=== PATIENT | male | born 1990 ===

== ENCOUNTER 2020-08-22 11:06 | Outpatient (REF) | payer OTHER, SELFPAY | END 2020-08-22 11:07 | disposition home or self-care (01) | LOC: HO.LAB 11:06 | PROVIDERS: Visit Provider Internal Medicine | DX: Z20.828 Contact with and (suspected) exposure to other viral communicable diseases (principal) | CPT/HCPCS: C9803; U0003 ==

== ENCOUNTER 2020-09-20 10:24 | Outpatient (REF) | payer OTHER, SELFPAY | END 2020-09-20 10:25 | disposition home or self-care (01) | LOC: HO.LAB 10:24 | PROVIDERS: Visit Provider Internal Medicine | DX: Z20.822 Contact with and (suspected) exposure to COVID-19 (principal) | CPT/HCPCS: 36415; C9803; U0003 ==

== ENCOUNTER 2021-01-23 15:01 | Emergency (ER) | payer OTHER, SELFPAY ==
--- NOTE | ~2021-01-23 | XR_ITS ---
EXAMINATION: XR KNEE, RIGHT CLINICAL INFORMATION: Pain and swelling. COMPARISON: None TECHNIQUE: Four views of the right knee. FINDINGS: There is minimal suprapatellar joint effusion. The joint spaces are maintained normal. There is no visible acute fracture, dislocation or bony erosive changes. The soft tissues are unremarkable. XR/XR knee RT 4V IMPRESSION: Nonspecific minimal suprapatellar joint effusion. Otherwise unremarkable right knee exam.
[2021-01-23 15:05] VITALS: BP 127/70; PULSE 98; RESP 20; TEMP 36.8; O2SAT 95; BMI 27.4
--- NOTE | 2021-01-23 15:58 | ED_ITS ---
HPI - Extremity Problem General Chief complaint: Extremity Problem <ALBERTO Colin Last Filed: 01/23/21 16:32> Stated complaint: knee pain <ALBERTO Colin Last Filed: 01/23/21 16:32> Time Seen by Provider: 01/23/21 15:58 <ALBERTO Colin Last Filed: 01/23/21 16:32> Source: patient <ALBERTO Colin Last Filed: 01/23/21 16:32> Mode of arrival: ambulatory <ALBERTO Colin Last Filed: 01/23/21 16:32> History of Present Illness HPI Narrative: 30-year-old male with a past medical history of chronic right knee pain s/p injury multiple years ago in [place] presenting to the ED complaining of acute on chronic right knee pain S/P twisting injury yesterday. Denies direct trauma/injury, falls, numbness, tingling, weakness, fever <ALBERTO Colin Last Filed: 01/23/21 16:32> MD Complaint: extremity pain <ALBERTO Colin Last Filed: 01/23/21 16:32> Related Data Home medications: Previous Rx's Medication Instructions Recorded acetaminophen 500 mg PO Q6H PRN #20 cap 01/23/21 acetaminophen [Tylenol Extra 500 mg PO Q6H PRN #20 tab 01/23/21 Strength] naproxen 500 mg PO BID PRN 10 Days #20 tab 01/23/21 naproxen 500 mg PO BID PRN 10 Days #20 tab 01/23/21 <ALBERTO Colin Last Filed: 01/23/21 16:32> Allergies/Adverse reactions: Allergies Allergy/AdvReac Type Severity Reaction Status Date / Time No Known Allergies Allergy Unverified 05/24/20 19:16 [No Known Allergies*] <ALBERTO Colin Last Filed: 01/23/21 16:32> Review of Systems Review of Systems: Constitutional: No Fever, No Chills Cardiovascular: No Chest Pain, No SOB Respiratory: No Cough Musculoskeletal: + joint pain, No Myalgias, + Joint Swelling Skin: No Skin Lesions, No rash Neuro: No Weakness, No Numbness, No Paresthesias <ALBERTO Colin Last Filed: 01/23/21 16:32> Yes all other systems are reviewed and are negative <ALBERTO Colin - Last Filed: 01/23/21 16:32> [facility] Past Medical History Attestation statement: The following information was validated with the patient. <ALBERTO Colin - Last Filed: 01/23/21 16:32> Social History Social History: Social History Advance Directives: No Advance Directives Information Provided: Yes <ALBERTO Colin - Last Filed: 01/23/21 16:32> Physical Exam Vital Signs: Vital Signs: Last Vital Signs Temp 98.3 F 01/23/21 15:05 Pulse 98 01/23/21 15:05 Resp 01/23/21 15:05 BP 127/70 01/23/21 15:05 Pulse Ox 95 01/23/21 15:05 Body Mass Index 27.4 <ALBERTO Colin - Last Filed: 01/23/21 16:32> Vital Signs: Last Vital Signs Temp 98.3 F 01/23/21 15:05 Pulse 98 01/23/21 15:05 Resp 20 01/23/21 15:05 BP 127/70 01/23/21 15:05 Pulse Ox 95 01/23/21 15:05 Body Mass Index 27.4 <AMAYA Bradford - Last Filed: 01/23/21 19:08> Const: General: cooperative, healthy appearing and no acute distress <ALBERTO Colin - Last Filed: 01/23/21 16:32> Orientation/consciousness: patient oriented x3 <ALBERTO Colin - Last Filed: 01/23/21 16:32> Limitations: no limitations <ALBERTO Colin - Last Filed: 01/23/21 16:32> HENMT: Head: Yes normal to inspection <ALBERTO Colin - Last Filed: 01/23/21 16:32> Ears: hearing grossly normal bilaterally <ALBERTO Colin - Last Filed: 01/23/21 16:32> General nose exam: Normal external nose present <ALBERTO Colin - Last Filed: 01/23/21 16:32> Face and sinus: Yes normal facial exam <ALBERTO Colin - Last Filed: 01/23/21 16:32> Eyes: General: appearance normal, both eyes and all related structures <ALBERTO Colin Last Filed: 01/23/21 16:32> EOM: EOMs intact bilaterally <ALBERTO Colin - Last Filed: 01/23/21 16:32> Neck: Neck: Yes normal visual inspection and Yes no meningeal signs <ALEBRTO Colin - Last Filed: 01/23/21 16:32> Resp: Effort & Inspection: normal respiratory effort <ALBERTO Colin - Last Filed: 01/23/21 16:32> Cardio: Rate: regular rate <ALBERTO Colin - Last Filed: 01/23/21 16:32> Peripheral pulses: dorsalis pedis present <ALBERTO Colin Last Filed: 01/23/21 16:32> Skin: Rashes: no rashes <ALBERTO Colin - Last Filed: 01/23/21 16:32> Wounds: no wounds <ALBERTO Colin Last Filed: 01/23/21 16:32> Neuro: General: patient oriented x3, tone normal and no meningeal signs <ALBERTO Colin Last Filed: 01/23/21 16:32> Extrem: Other: Right knee with notable swelling > medial aspect. + tender to palpation. Limited active flexion and extension secondary to pain. Neurovascularly intact distally. No overlying cellulitis/fluctuance or induration <ALBERTO Colin Last Filed: 01/23/21 16:32> Course Course Course Narrative: XR knee RT 4V IMPRESSION: Nonspecific minimal suprapatellar joint effusion. Otherwise unremarkable right knee exam >> patient placed in Tevin wrap. Results discussed with blood bank calendar control clerk. Is to follow up with Orthopedics for likely needed MRI/cortisone injections <ALBERTO Colin Last Filed: 01/23/21 16:32> Reevaluation(s) Reevaluation #1: Patient's prescriptions were not sent to his pharmacy, the pharmacy was not selected. I recent prescriptions for acetaminophen and naproxen to [facility] on [address] [address] [facility] [address] in [place]. <Yamilex Longoria PA-C - Last Filed: 01/23/21 19:08> Time: 19:08 <Yamilex Longoria PA-C - Last Filed: 01/23/21 19:08> MDM - Extremity (Nontraumatic) MDM Narrative Medical decision making narrative: 30-year-old male with a past medical history of chronic right knee pain s/p injury multiple years ago in [place] presenting to the ED complaining of acute on chronic right knee pain S/P twisting injury yesterday. On exam vital signs stable, NAD/well-appearing, physical exam as above. Concern for ligamental/tendon or meniscal injury. Low concern for fracture/dislocation Plan: X-rays <ALBERTO Colin - Last Filed: 01/23/21 16:32> Discharge Plan Discharge Clinical Impression: Joint effusion of knee Qualifiers: Laterality: right Qualified Code(s): M25.461 - Effusion, right knee <ALBERTO Colin - Last Filed: 01/23/21 16:32> Patient Disposition: Home, Self-Care <ALBERTO Colin - Last Filed: 01/23/21 16:32> Instructions: Swollen Knee Joint (ED) <ALBERTO Colin - Last Filed: 01/23/21 16:32> Additional Instructions: Your x-ray showed a small joint effusion. It is likely you have a ligamental/tendon or meniscal injury. You need an MRI to further evaluate this, follow-up with Orthopedics, they can also do cortisone injections as indicated in their office. Ice, elevate, rest, naproxen as an anti-inflammatory/pain medication, take with food. Tylenol in addition home with pain. If pain persists or worsens, becomes unbearable, have weakness, persistent falls please return to the ED Coe radiograf?a mostr? un sarmad?o derrame articular. Es probable que tenga ladi lesi?n de ligamentos, tendones o meniscos. Necesita ladi resonancia magn?purnima para evaluar m?s a fondo esto, seguimiento con ortopedia, tambi?n pueden hacer inyecciones de cortisona rain se indica en coe oficina. Hielo, eleve, descanse, naproxeno rain antiinflamatorio / analg?sico, t?sanchez con alimentos. Tylenol adem?s en casa con dolor. Si el dolor persiste o empeora, se vuelve insoportable, tiene debilidad, ca?hwang persistentes, vuelva al servicio de urgencias. <ALBERTO Colin - Last Filed: 01/23/21 16:32> Prescriptions: New acetaminophen [Tylenol Extra Strength] 500 mg tablet 500 mg PO Q6H PRN (Reason: pain or fever) Qty: 20 RF: 0 naproxen 500 mg tablet 500 mg PO BID PRN (Reason: pain) 10 Days Qty: 20 RF: 0 naproxen 500 mg tablet 500 mg PO BID PRN (Reason: pain) 10 Days Qty: 20 RF: 0 acetaminophen 500 mg capsule 500 mg PO Q6H PRN (Reason: pain) Qty: 20 RF: 0 <ALBERTO Colin - Last Filed: 01/23/21 16:32> Referrals: Stephy Sexton PA-C [Physician [employer]] - 5 days <ALBERTO Colin - Last Filed: 01/23/21 16:32> Stand Alone Forms: Work/School Release <ALBERTO Colin - Last Filed: 01/23/21 16:32> Interventions: ED Discharge Assessment Last Done: 01/23/21 16:41 <ALBERTO Colin - Last Filed: 01/23/21 16:32> Discharge Date/Time: 01/23/21 16:42 <ALBERTO Colin - Last Filed: 01/23/21 16:32> Print Language: Belarusian <ALBERTO Colin - Last Filed: 01/23/21 16:32>
== END 2021-01-23 16:42 | disposition home or self-care (01) ==
PROVIDERS: Emergency Provider Emergency Medicine
DX: M25.461 Effusion, right knee (principal); M25.561 Pain in right knee; Z79.899 Other long term (current) drug therapy
CPT/HCPCS: 73564; 99283

== ENCOUNTER 2021-02-03 15:13 | Emergency (ER) | payer OTHER, SELFPAY ==
[2021-02-03 15:15] VITALS: BP 142/84; PULSE 104; RESP 18; TEMP 37.3; O2SAT 97; BMI 26.6
[2021-02-03 15:41] LABS: Eosinophils Absolute Auto 0.1 X10*3/uL (0.0-0.4); Eosinophils Percent Auto 1.2 % (0-4); Imm Gran Abs Auto 0.01 X10*3/uL (0.00-0.03); Imm Gran Pct Auto 0.2 % (0.0-0.4); MANUAL DIFF FLAG SCAN; Monocytes Percent Auto 9.5 % (2-11); PLT CLUMP 1; Red Cell Distribution Width 12.9 % (11.0-16.0); SCAN SMEAR FLAG 1
[2021-02-03 15:43] LABS: Basophils Percent Auto 0.4 % (0-2); Hematocrit 44.1 % (42-52); Hemoglobin 14.4 g/dl (14.0-18.0); Lymphocytes Absolute Auto 0.6 X10*3/uL (1.2-4.9); Lymphocytes Percent Auto 10.7 % (20-40); Mean Corpuscular HGB Conc 32.7 g/dl (31.0-36.0); Mean Corpuscular Hemoglobin 28.2 pg (27.0-33.0); Mean Corpuscular Volume 86.5 fL (80-98); Mean Platelet Volume 11.9 fL (9.4-12.4); Monocytes Absolute Auto 0.5 X10*3/uL (0.1-1.2); Neutrophils Absolute Auto 4.4 X10*3/uL (2.0-8.3); Platelet Count 131 X10*3/uL (160-400); White Blood Count 5.7 X10*3/uL (4.8-10.8)
[2021-02-03 16:02] LABS: SLIDE REVIEW VERIFIED
[2021-02-03 16:10] LABS: Anion Gap 11 (12-20); Blood Urea Nitrogen 17 mg/dL (9-16); Calcium 8.8 mg/dL (8.4-10.2); Carbon Dioxide 25 mmol/L (22-29); Chloride 107 mmol/L (96-108); Creatinine Clr Calc Pharmacy 134.6; Estimated Glomerular Filt Rate > 60; Glucose Random 95 mg/dL (60-115); Lipase 18 U/L (8-78); Sodium 139 mmol/L (135-145)
--- NOTE | 2021-02-03 16:22 | ECG_ITS ---
Test Reason : ABDOMINAL PAIN Blood Pressure : / mmHG Vent. Rate : 091 BPM Atrial Rate : 091 BPM P-R Int : 128 ms QRS Dur : 080 ms QT Int : 342 ms P-R-T Axes : 043 018 -09 degrees QTc Int : 420 ms Normal sinus rhythm Nonspecific ST and T wave abnormality Abnormal ECG When compared with ECG of 14-JAN-2017 22:03, Nonspecific ST and T wave abnormality more prominent Referred By: Ronna Mcmanus Electronically Signed By:MARCO CASTREJON
[2021-02-03 16:39] LABS: Alanine Aminotransferase 30 U/L (0-40); Albumin Level 4.2 g/dL (3.5-5.0); Alkaline Phosphatase 58 U/L (39-117); Aspartate Amino Transferase 13 U/L (5-37); Bilirubin Direct 0.2 mg/dL (0.0-0.5); Bilirubin Total 0.4 mg/dL (0.0-1.0); Total Protein 6.8 g/dL (6.5-8.0)
[2021-02-03 16:56] VITALS: BP 121/79; PULSE 92; RESP 18; TEMP 36.7; O2SAT 97
[2021-02-03 17:03] LABS: Troponin-I High Sensitivity < 3.5 ng/L (<3.5-35.0)
--- NOTE | 2021-02-03 17:29 | ED_ITS ---
HPI - General Adult General Chief complaint: Abdominal Pain Stated complaint: chest pain Time Seen by Provider: 02/03/21 16:06 Source: patient Mode of arrival: ambulatory History of Present Illness HPI narrative: 30 year old male with no significant past medical history presenting to the ED complaining of intermittent chest pain x1 month, headache, myalgias, fever, chills, s/p 1st dose of Pfziser COVID-19 vaccine yesterday. Denies abdominal pain, nausea/vomiting, LE edema, recent travel, sick contacts, SOB, cough Related Data Previous Rx's Medication Instructions Recorded acetaminophen 500 mg PO Q6H PRN #20 cap 01/23/21 acetaminophen [Tylenol Extra 500 mg PO Q6H PRN #20 tab 01/23/21 Strength] naproxen 500 mg PO BID PRN 10 Days #20 tab 01/23/21 naproxen 500 mg PO BID PRN 10 Days #20 tab 01/23/21 Allergies Allergy/AdvReac Type Severity Reaction Status Date / Time No Known Allergies Allergy Verified 02/03/21 15:20 [No Known Allergies*] Review of Systems Review of Systems: Constitutional: + Fever, + Chills, No Night Sweats, No Fatigue, No Malaise ENT/Mouth: No Hearing loss, No Ear Pain, No Nasal Congestion, No Sinus Pain, No sore throat, No Rhinorrhea Eyes: No Eye Pain, No Swelling, No Vision Changes Cardiovascular: + Chest Pain, No SOB, No Edema, No Palpitations Respiratory: + Cough, No Sputum, No Dyspnea Gastrointestinal: No Nausea, No Vomiting, No Diarrhea, No Constipation, No Abdominal pain Musculoskeletal: No joint pain, + Myalgias, No Joint Swelling Skin: No Skin Lesions, No rash Neuro: No Weakness, No Numbness, No Dizziness, + Headache Yes all other systems are reviewed and are negative [facility] Past Medical History Attestation statement: The following information was validated with the patient. Medical History (Updated 02/03/21 @ 17:39 by ALBERTO Colin) No known health problems Social History Social History Advance Directives: No Advance Directives Information Provided: Yes Physical Exam Vital Signs: Vital Signs: Last Vital Signs Temp 98.1 F 02/03/21 16:56 Pulse 92 02/03/21 16:56 Resp 18 02/03/21 16:56 BP 121/79 02/03/21 16:56 Pulse Ox 97 02/03/21 16:56 Body Mass Index 26.6 Const: General: cooperative, healthy appearing and no acute distress Orientation/consciousness: patient oriented x3 Limitations: no limitations HENMT: Head: Yes normal to inspection Ears: hearing grossly normal bilaterally General nose exam: Normal external nose present Face and sinus: Yes normal facial exam Eyes: General: appearance normal, both eyes and all related structures EOM: EOMs intact bilaterally Neck: Neck: Yes normal visual inspection and Yes no meningeal signs Chest: Chest palpation & inspection: normal inspection of the chest Resp: Effort & Inspection: normal respiratory effort Auscultation: clear to auscultation bilaterally, no rales, no rhonchi and no wheezes Cardio: Rate: regular rate Heart sounds: S1 normal heart sound present and S2 normal heart sound present GI: Inspection: Yes normal to inspection Palpation (GI): Soft to palpation, nontender, no guarding and not rigid Skin: Rashes: no rashes Wounds: no wounds Neuro: General: patient oriented x3 and no meningeal signs Extrem: General: Yes normal to inspection, Yes no pedal edema and Yes no calf tenderness Course Course Course Narrative: -labs unremarkable, troponin negative. EKG unchanged from priors. Nonischemic Medical Decision Making MDM Narrative Medical decision making narrative: 30 year old male with no significant past medical history presenting to the ED complaining of intermittent chest pain x1 month, headache, myalgias, fever, chills, s/p 1st dose of Pfziser COVID-19 vaccine yesterday. On exam initially tachycardic, NAD, nontoxic appearing, lungs CTA, no LE edema or calf tenderness. Likely side effect of COVID-19 vaccine. Rule out ACS. Low concern for PE as symptoms have been x1 month and intermittent. Plan: EKG, labs, reassess Lab Data Result diagrams: 02/03/21 15:36 02/03/21 15:36 Labs: Lab Results 02/03/21 02/03/21 02/03/21 Range/Units 15:36 15:36 15:36 WBC 5.7 (4.8-10.8) X10*3/uL RBC 5.10 (4.60-5.80) X10*6/uL Hgb 14.4 (14.0-18.0) g/dl Hct 44.1 (42-52) % MCV 86.5 (80-98) fL MCH 28.2 (27.0-33.0) pg MCHC 32.7 (31.0-36.0) g/dl RDW 12.9 (11.0-16.0) % Plt Count 131 L (160-400) X10*3/uL MPV 11.9 (9.4-12.4) fL Immature Gran % (Auto) 0.2 (0.0-0.4) % Neut % (Auto) 78.0 H (45-73) % Lymph % (Auto) 10.7 L (20-40) % [place] % (Auto) 9.5 (2-11) % Eos % (Auto) 1.2 (0-4) % Baso % (Auto) 0.4 (0-2) % Lymph # (Auto) 0.6 L (1.2-4.9) X10*3/uL [place] # (Auto) 0.5 (0.1-1.2) X10*3/uL Eos # (Auto) 0.1 (0.0-0.4) X10*3/uL Baso # (Auto) 0.0 (0.0-0.2) X10*3/uL Abs Immat Gran (auto) 0.01 (0.00-0.03) X10*3/uL Absolute Neuts (auto) 4.4 (2.0-8.3) X10*3/uL Absolute Nucleated RBC 0.000 (0.0-0.012) X10*3/uL Nucleated RBC % (auto) 0.0 (0.0-0.2) /100WBC Smear Tech's Comments VERIFIED Sodium 139 (135-145) mmol/L Potassium 4.0 (3.3-5.1) mmol/L Chloride 107 (96-108) mmol/L Carbon Dioxide 25 (22-29) mmol/L Anion Gap 11 L (12-20) BUN 17 H (9-16) mg/dL Creatinine 0.75 (0.5-1.4) mg/dL Estim Creat Clear Calc 134.6 Estimated GFR > 60 Random Glucose 95 (60-115) mg/dL Calcium 8.8 (8.4-10.2) mg/dL Magnesium 2.0 (1.6-2.6) mg/dL Total Bilirubin 0.4 (0.0-1.0) mg/dL Direct Bilirubin 0.2 (0.0-0.5) mg/dL AST 13 (5-37) U/L ALT 30 (0-40) U/L Alkaline Phosphatase 58 (39-117) U/L Troponin I High Sens < 3.5 (<3.5-35.0) ng/L Total Protein 6.8 (6.5-8.0) g/dL Albumin 4.2 (3.5-5.0) g/dL Lipase 18 (8-78) U/L Discharge Plan Discharge Clinical Impression: Vaccination side effects, Chest pain Patient Disposition: Home, Self-Care Instructions: Chest Pain (ED) Additional Instructions: Your blood work was reassuring today in the emergency department, her EKG was unchanged from her priors. Her symptoms are likely a side effect from the COVID-19 vaccine. You need to follow-up with her primary care doctor. If her symptoms persist or worsen, be Fan constant and shortness of breath, fever, or chills please return to the ED Gonzalez an?lisis de vickie fue reconfortante hoy en el departamento de emergencias, gonzalez electrocardiograma no se modific? con respecto a tapan antecedentes. Es probable que tapan s?ntomas ivy un efecto secundario de la vacuna COVID-19. Debe hacer un seguimiento con gonzalez m?dico de atenci?n primaria. Si tapan s?ntomas persisten o empeoran, sea christiano y tenga dificultad para respirar, fiebre o escalofr?os, por favor regrese al servicio de urgencias. Prescriptions: No Action acetaminophen [Tylenol Extra Strength] 500 mg tablet 500 mg PO Q6H PRN (Reason: pain or fever) Qty: 20 RF: 0 naproxen 500 mg tablet 500 mg PO BID PRN (Reason: pain) 10 Days Qty: 20 RF: 0 naproxen 500 mg tablet 500 mg PO BID PRN (Reason: pain) 10 Days Qty: 20 RF: 0 acetaminophen 500 mg capsule 500 mg PO Q6H PRN (Reason: pain) Qty: 20 RF: 0 Referrals: Physician,None [Primary Care Provider] - 2 days Print Language: Colombian
== END 2021-02-03 18:10 | disposition home or self-care (01) ==
PROVIDERS: Physician Assistant; Emergency Provider Internal Medicine
DX: R07.9 Chest pain, unspecified (principal); R51.9 Headache, unspecified; T50.B95A Adverse effect of other viral vaccines, initial encounter; Y92.019 Unspecified place in single-family (private) house as the place of occurrence of the external cause; M79.10 Myalgia, unspecified site
CPT/HCPCS: 36415; 80048; 80076; 83690; 83735; 84484; 85025; 93005; 99283

== ENCOUNTER 2021-04-04 10:54 | Emergency (ER) | payer OTHER, SELFPAY ==
[2021-04-04 11:36] VITALS: BP 113/75; PULSE 79; RESP 18; TEMP 36.5; O2SAT 96; BMI 27.3
--- NOTE | 2021-04-04 12:24 | ED_ITS ---
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 Pain is worsened with movement, touch. No fevers, chills, headache. No injury or trauma. Related Data Previous Rx's Medication Instructions Recorded acetaminophen 500 mg capsule 500 mg PO Q6H PRN #20 cap 01/23/21 acetaminophen 500 mg tablet 500 mg PO Q6H PRN #20 tab 01/23/21 (Tylenol Extra Strength) naproxen 500 mg tablet 500 mg PO BID PRN 10 Days #20 tab 01/23/21 naproxen 500 mg tablet 500 mg PO BID PRN 10 Days #20 tab 01/23/21 cyclobenzaprine 10 mg tablet 10 mg PO TID PRN #10 tab 04/04/21 ibuprofen 600 mg tablet 600 mg PO Q8H PRN #20 tab 04/04/21 Allergies Allergy/AdvReac Type Severity Reaction Status Date / Time No Known Allergies Allergy Verified 02/03/21 15:20 [No Known Allergies*] Review of Systems Review of Systems: Yes all other systems are reviewed and are negative Constitutional: Constitutional: Reports no additional constitutional complaints, Denies body ache(s), Denies chills, Denies fever(s), Denies headache(s) and Denies weakness Eyes: Eyes: Reports no additional eye complaints and Denies change in vision ENT: Reports system reviewed and no additional complaints, except as documented, Denies dizziness, Denies headache(s), Denies nasal congestion, Denies nasal discharge and Denies neck pain Cardiovascular: Cardiovascular: Reports no additional cardiovascular complaints, Denies chest pain, Denies leg edema and Denies dyspnea Respiratory: Respiratory: Reports no additional respiratory complaints, Denies cough and Denies dyspnea Gastrointestinal: Gastrointestinal: Reports no additional gastrointestinal complaints, Denies abdominal pain, Denies diarrhea, Denies nausea and Denies vomiting Genitourinary: Genitourinary: Denies urinary incontinence Musculoskeletal: Musculoskeletal: Reports no additional musculoskeletal complaints, Denies back pain, Denies arthralgias, Denies joint swelling, Denies neck pain, Denies numbness and Denies tingling Integumentary/Breasts: Skin/Breast: Reports system reviewed and no additional complaints, except as docu and Denies rash Neurologic: Reports system reviewed and no additional complaints, except as documented, Denies Abnormal speech present, Denies dizziness, Denies headache(s), Denies numbness, Denies tingling and Denies weakness PMFSH Past Medical History Attestation statement: The following information was validated with the patient. Source: old records reviewed and nursing notes reviewed Medical History No known health problems Social History Social History Advance Directives: No Advance Directives Information Provided: No Physical Exam Vital Signs: Vital Signs: Last Vital Signs Temp 97.7 F 04/04/21 11:36 Pulse 79 04/04/21 11:36 Resp 18 04/04/21 11:36 BP 113/75 04/04/21 11:36 Pulse Ox 96 04/04/21 11:36 Body Mass Index 27.3 Const: General: cooperative, healthy appearing, comfortable and no acute distress Orientation/consciousness: patient oriented x3 Limitations: no limitations HENMT: Head: Yes normal to inspection Ears: hearing grossly normal bilaterally General nose exam: Normal external nose present Face and sinus: Yes normal facial exam Mouth: Normal oral and palatal mucosa present Throat: Yes posterior oropharynx normal Eyes: General: appearance normal, both eyes and all related structures Pupils: Equal, round and reactive pupils present Neck: Other: Left trapezius tenderness to palp, worsened with head rotation to the left. Neck: Yes normal visual inspection, Yes no lymphadenopathy and Yes midline deformity Chest: Chest palpation & inspection: normal inspection of the chest Resp: Effort & Inspection: normal respiratory effort Auscultation: clear to auscultation bilaterally Cardio: Rate: regular rate Rhythm: regular rhythm Peripheral pulses: Peripheral pulses 2+ throughout GI: Inspection: Yes normal to inspection Palpation (GI): Soft to palpation and nontender Auscultation: normal bowel sounds Back/Spine/Pelvis: Thoracic/Lumbar Spine: thoracic and lumbar spine normal to inspection Skin: General skin exam: no rashes or lesions noted Neuro: General: patient oriented x3, no focal motor deficits and normal sensation to monofilament Cranial nerves: Yes Equal, round and reactive pupils present Cognition (Neuro): normal cognition Speech: No Abnormal speech present Gait exam (Neuro): Normal gait present Motor exam (neuro): 5/5 motor strength present throughout Extrem: General: Yes normal to inspection Course Course Course Narrative: Left trapezius tenderness with palpable muscle spasm. No cervical midline tenderness, step-offs or deformities. Likely muscle spasm. Reviewed worrisome signs and symptoms and when to return to the emergency department. Comfortable discharge home. MDM - Back Pain/Injury Medical Records Attestation: I reviewed the patient's medical records. Lab Data Attestation: I reviewed the patient's lab results. Discharge Plan Discharge Clinical Impression: Muscle spasm Patient Disposition: Home, Self-Care Instructions: Muscle Spasm (ED) Additional Instructions: heat to the area gentle stretching Prescriptions: New cyclobenzaprine 10 mg tablet 10 mg PO TID PRN (Reason: muscle spasm) Qty: 10 RF: 0 ibuprofen 600 mg tablet 600 mg PO Q8H PRN (Reason: pain) Qty: 20 RF: 0 No Action acetaminophen [Tylenol Extra Strength] 500 mg tablet 500 mg PO Q6H PRN (Reason: pain or fever) Qty: 20 RF: 0 naproxen 500 mg tablet 500 mg PO BID PRN (Reason: pain) 10 Days Qty: 20 RF: 0 naproxen 500 mg tablet 500 mg PO BID PRN (Reason: pain) 10 Days Qty: 20 RF: 0 acetaminophen 500 mg capsule 500 mg PO Q6H PRN (Reason: pain) Qty: 20 RF: 0 Referrals: Physician,None [Primary Care Provider] - 2 days Stand Alone Forms: Work/School Release Print Language: Libyan
== END 2021-04-04 13:25 | disposition home or self-care (01) ==
PROVIDERS: Emergency Provider Emergency Medicine
DX: M62.830 Muscle spasm of back (principal); M25.512 Pain in left shoulder; M54.2 Cervicalgia; Z79.899 Other long term (current) drug therapy
CPT/HCPCS: 99283

== ENCOUNTER 2021-11-08 08:44 | Outpatient (REF) | payer OTHER, SELFPAY ==
--- NOTE | ~2021-11-08 | FL_ITS ---
EXAMINATION: XR FLUOROSCOPY UPPER GI WITH AIR CLINICAL INFORMATION: Gastroesophageal reflux disease COMPARISON: None TECHNIQUE: Air-contrast upper GI examination FINDINGS: There is normal apposition of the vocal cords while saying E. There is normal elevation of the soft palate while saying candy. The patient drank thin and thick barium and half-inch diameter barium tablet without difficulty. There is no evidence of nasopharyngeal reflux or a tracheal aspiration. No Zenker's diverticulum. No cricopharyngeal hypertrophy. No persistent esophageal stricture is identified. The gastroesophageal junction is widely patent. There is spontaneous gastroesophageal reflux to the level of the thoracic inlet. This cleared rapidly. There is normal esophageal motility. No hiatal hernia is appreciated. No esophageal mucosal abnormalities appreciated. The stomach demonstrates normal distensibility without evidence of ulceration or mass. There was no delay in gastric emptying. The duodenal bulb and sweep appeared unremarkable. FLUOROSCOPY TIME: 1.3 minutes DOSE AREA PRODUCT: 11.393 Gy-cm2 (mendez-centimeter squared) FL/FL upper GI w air IMPRESSION: 1. Spontaneous gastroesophageal reflux to the level of the thoracic inlet with no definite esophageal ulceration. 2. Otherwise unremarkable air-contrast upper GI examination.
== END 2021-11-08 08:45 | disposition home or self-care (01) ==
LOC: HO.XRAY 08:44
PROVIDERS: PCP Internal Medicine; Visit Provider Internal Medicine
DX: K21.9 Gastro-esophageal reflux disease without esophagitis (principal)
CPT/HCPCS: 74246

== ENCOUNTER 2022-04-21 13:28 | Emergency (ER) | payer OTHER, SELFPAY ==
--- NOTE | ~2022-04-21 | XR_ITS ---
EXAMINATION: XR CHEST CLINICAL INFORMATION: Shortness of breath. COMPARISON: None TECHNIQUE: 2 views of the chest were obtained. FINDINGS: No significant abnormality is noted involving the heart, lungs, mediastinum, bony thorax or soft tissues. XR/XR chest 2V IMPRESSION: Unremarkable examination.
[2022-04-21 13:41] VITALS: BP 131/82; PULSE 98; RESP 17; TEMP 36.6; O2SAT 98; BMI 27.2
[2022-04-21 14:02] LABS: COVID-19 Test Negative (Negative)
--- NOTE | 2022-04-21 16:30 | ED.GENADULT ---
HPI - General Adult General Chief complaint: Upper Respiratory Symptoms Stated complaint: sob, sore throat Time Seen by Provider: 04/21/22 16:29 Source: patient Mode of arrival: ambulatory History of Present Illness HPI narrative: 31-year-old male with past medical history of GERD, lumbar back pain, umbilical hernia, presenting to the ED complaining of cough, sore throat, nasal congestion, headache, intermittent lightheadedness, and low back pain x few weeks. Denies lightheadedness present. Denies known back injury/trauma or fall. Does report numbness radiating down bilateral LE last night. Denies fever, vision change, CP/SOB, abdominal pain, nausea/vomiting, urinary incontinence/retention. Onset (ago): week(s) Related Data Previous Rx's Medication Instructions Recorded omeprazole 20 mg capsule,delayed 20 mg PO DAILY 90 days #90 caps 10/09/21 release Allergies Allergy/AdvReac Type Severity Reaction Status Date / Time No Known Allergies Allergy Verified 02/12/22 07:41 [No Known Allergies*] Review of Systems Review of Systems: Constitutional: No Fever, No Chills, +fatigue, +malaise ENT/Mouth: No Ear Pain, + Nasal Congestion, No Sinus Pain, No Hoarseness, + sore throat, + Rhinorrhea, No Swallowing Difficulty Cardiovascular: No Chest Pain, No SOB Respiratory: + Cough, No Sputum, No Wheezing Gastrointestinal: No Nausea, No Vomiting, No Diarrhea, No Constipation, No Abdominal pain Genitourinary: No Dysuria, No Urinary Frequency, No Hematuria, No Urinary Incontinence/retention, No Urgency, No Flank Pain Musculoskeletal: No joint pain, No Myalgias, No Joint Swelling Skin: No Skin Lesions, No rash Neuro: No Weakness, No Numbness, No Paresthesias, +intermittent lightheadedness, +headache Yes all other systems are reviewed and are negative Constitutional: Constitutional: Reports as per HPI Neurologic: Denies Abnormal speech present [facility] Past Medical History Attestation statement: The following information was validated with the patient. Medical History (Updated 04/21/22 @ 17:34 by ALBERTO Hurley) Chronic GERD Lumbar pain Overweight (BMI 25.0-29.9) Physical exam Right knee pain Umbilical hernia Surgical History No pertinent past surgical history Family History Family History Mother Breast cancer Father Essential (primary) hypertension Diabetes mellitus Social History Social History Housing: Apartment Alcohol intake: current Alcohol intake frequency: holidays/special occasions only Alcohol type: wine Patient Tobacco Use Status: Never used Tobacco e-Cigarette/Vaping Use: Never Used Second Hand Smoke Exposure: No Advance Directives: No Advance Directives Information Provided: No service: No Current occupational status: employed Current occupational exposures/hazards: No Cognitive needs: No Hearing needs: No Vision needs: No Physical Exam ED Vital Signs: Vital Signs - 24 hr 04/21/22 13:41 04/21/22 16:51 04/21/22 17:04 Temperature 98 F 98.2 F Pulse Rate 98 79 Respiratory Rate 17 14 Blood Pressure 131/82 136/86 Pulse Oximetry 98 98 98 Oxygen Delivery Method Room Air Room Air Room Air BMI result Body Mass Index 27.2 Const General: cooperative, healthy appearing, no acute distress, alert, awake and Physically active Orientation/consciousness: patient oriented x3 Limitations: no limitations HENMT Head: Yes normal to inspection and Yes atraumatic Ears: hearing grossly normal bilaterally, external ears normal, TM's normal bilaterally and mastoids normal General nose exam: Normal external nose present Face and sinus: Yes normal facial exam Mouth: Normal oral and palatal mucosa present Throat: Yes posterior oropharynx normal, Yes tonsils normal, Yes uvula midline, No abnormal tonsil, No peritonsillar mass, No uvula laterally displaced and No uvular edema Eyes General: appearance normal, both eyes and all related structures Pupils: Equal, round and reactive pupils present EOM: EOMs intact bilaterally Neck Neck: Yes normal visual inspection and Yes no meningeal signs Resp Effort & Inspection: normal respiratory effort and no respiratory distress Auscultation: clear to auscultation bilaterally, no crackles, no rales, no rhonchi and no wheezes Cardio Rate: regular rate Heart sounds: S1 normal heart sound present and S2 normal heart sound present GI Inspection: Yes normal to inspection Palpation (GI): not firm, nontender, no guarding and not rigid Back/Spine/Pelvis Other: No midline thoracic/lumbar spinous tenderness/step-off or deformity Skin Rashes: no rashes Wounds: no wounds Neuro Other: Strength intact throughout. No saddle anesthesia. Sensation intact to light touch. Neurovascular intact distally General: patient oriented x3, gait normal, tone normal, moves all extremities, no meningeal signs, no focal motor deficits and CN's II-XI intact bilaterally Cranial nerves: Yes CN's II-XII intact bilaterally, Yes Equal, round and reactive pupils present and Yes Bilaterally intact EOM present Cognition (Neuro): normal cognition Speech: No Abnormal speech present Gait exam (Neuro): Normal gait present Motor exam (neuro): 5/5 motor strength present throughout Coordination: [id number] test normal Extrem General: Yes normal to inspection Course Course Course Narrative: XR chest 2V IMPRESSION: Unremarkable examination. -no leukocytosis. UA negative. COVID-19 negative. Rapid strep negative -1800--labs otherwise unremarkable. Troponin negative EKG nonischemic Results discussed with patient including worrisome signs and symptoms and strict return precautions, and when to return to the emergency department. They verbalized understanding and feel safe for discharge at this time. Medical Decision Making [facility] Narrative Medical decision making narrative: 31-year-old male with past medical history of GERD, lumbar back pain, umbilical hernia, presenting to the ED complaining of cough, sore throat, nasal congestion, headache, intermittent lightheadedness, and low back pain x few weeks. On exam vital signs stable, NAD, nontoxic appearing, lungs CTA, or pharynx WNL, abdomen soft/nontender, no red flag symptoms or midline spinous tenderness throughout. Concern for viral illness vs metabolic abnormalities. Lower suspicion for pneumonia/PE/ACS, cauda equina, cord compression Plan: EKG, labs, UA, COVID-19 testing, rapid strep, re-evaluate Medical Records Medical records reviewed: Yes I reviewed the patient's medical records. Lab Data Lab results reviewed: Yes I reviewed the patient's lab results. Result diagrams: 04/21/22 17:06 04/21/22 17:06 Labs: Lab Results 04/21/22 04/21/22 04/21/22 Range/Units 13:48 13:48 17:06 WBC 5.9 (4.8-10.8) X10*3/uL RBC 5.58 (4.60-5.80) X10*6/uL Hgb 15.7 (14.0-18.0) g/dl Hct 47.3 (42.0-52.0) % MCV 84.8 (80.0-98.0) fL MCH 28.1 (27.0-33.0) pg MCHC 33.2 (31.0-36.0) g/dl RDW 12.7 (11.0-16.0) % Plt Count 169 (160-400) X10*3/uL MPV 11.4 (9.4-12.4) fL Immature Gran % (Auto) 0.2 (0.0-0.4) % Neut % (Auto) 64.5 (45-73) % Lymph % (Auto) 23.8 (20-40) % [place] % (Auto) 7.9 (2-11) % Eos % (Auto) 3.4 (0-4) % Baso % (Auto) 0.2 (0-2) % Lymph # (Auto) 1.4 (1.2-4.9) X10*3/uL [place] # (Auto) 0.5 (0.1-1.2) X10*3/uL Eos # (Auto) 0.2 (0.0-0.4) X10*3/uL Baso # (Auto) 0.0 (0.0-0.2) X10*3/uL Abs Immat Gran (auto) 0.01 (0.00-0.03) X10*3/uL Absolute Neuts (auto) 3.8 (2.0-8.3) x10*3/uL Absolute Nucleated RBC 0.000 (0.0-0.012) X10*3/uL Nucleated RBC % (auto) 0.0 (0.0-0.2) /100WBC Sodium (135-145) mmol/L Potassium (3.3-5.1) mmol/L Chloride (96-108) mmol/L Carbon Dioxide (22-29) mmol/L Anion Gap (12-20) BUN (9-16) mg/dL Creatinine (0.5-1.4) mg/dL Estim Creat Clear Calc Estimated GFR Random Glucose (60-115) mg/dL Calcium (8.4-10.2) mg/dL Magnesium (1.6-2.6) mg/dL Total Bilirubin (0.0-1.0) mg/dL Direct Bilirubin (0.0-0.5) mg/dL AST (5-37) U/L ALT (0-40) U/L Alkaline Phosphatase (39-117) U/L Troponin I High Sens (<3.5-35.0) ng/L Total Protein (6.5-8.0) g/dL Albumin (3.5-5.0) g/dL Urine Color Urine Appearance Urine pH (5.0-8.0) Ur Specific [place] (1.005-1.025) Urine Protein (NEG-TRACE) MG/DL Urine Glucose (UA) (NEG) MG/DL Urine Ketones (NEG) MG/DL Urine Blood (NEG) Urine Nitrite (NEG) Ur Leukocyte Esterase (Negative) COVID-19 (PATRICK) Negative (Negative) COVID-19 Clin Com See Note S. pyogenes GrpA JUAN Negative (Negative) 04/21/22 04/21/22 04/21/22 Range/Units 17:06 17:06 17:06 WBC (4.8-10.8) X10*3/uL RBC (4.60-5.80) X10*6/uL Hgb (14.0-18.0) g/dl Hct (42.0-52.0) % MCV (80.0-98.0) fL MCH (27.0-33.0) pg MCHC (31.0-36.0) g/dl RDW (11.0-16.0) % Plt Count (160-400) X10*3/uL MPV (9.4-12.4) fL Immature Gran % (Auto) (0.0-0.4) % Neut % (Auto) (45-73) % Lymph % (Auto) (20-40) % [place] % (Auto) (2-11) % Eos % (Auto) (0-4) % Baso % (Auto) (0-2) % Lymph # (Auto) (1.2-4.9) X10*3/uL [place] # (Auto) (0.1-1.2) X10*3/uL Eos # (Auto) (0.0-0.4) X10*3/uL Baso # (Auto) (0.0-0.2) X10*3/uL Abs Immat Gran (auto) (0.00-0.03) X10*3/uL Absolute Neuts (auto) (2.0-8.3) x10*3/uL Absolute Nucleated RBC (0.0-0.012) X10*3/uL Nucleated RBC % (auto) (0.0-0.2) /100WBC Sodium 141 (135-145) mmol/L Potassium 4.3 (3.3-5.1) mmol/L Chloride 102 (96-108) mmol/L Carbon Dioxide 28 (22-29) mmol/L Anion Gap 15 (12-20) BUN 16 (9-16) mg/dL Creatinine 0.75 (0.5-1.4) mg/dL Estim Creat Clear Calc 133.4 Estimated GFR > 60 Random Glucose 84 (60-115) mg/dL Calcium 9.2 (8.4-10.2) mg/dL Magnesium 2.4 (1.6-2.6) mg/dL Total Bilirubin 0.3 (0.0-1.0) mg/dL Direct Bilirubin < 0.2 (0.0-0.5) mg/dL AST 19 D (5-37) U/L ALT 31 (0-40) U/L Alkaline Phosphatase 63 (39-117) U/L Troponin I High Sens < 3.5 (<3.5-35.0) ng/L Total Protein 7.8 (6.5-8.0) g/dL Albumin 4.5 (3.5-5.0) g/dL Urine Color YELLOW Urine Appearance CLEAR Urine pH 7.0 (5.0-8.0) Ur Specific [place] 1.010 (1.005-1.025) Urine Protein Trace (NEG-TRACE) MG/DL Urine Glucose (UA) Negative (NEG) MG/DL Urine Ketones Negative (NEG) MG/DL Urine Blood Negative (NEG) Urine Nitrite Negative (NEG) Ur Leukocyte Esterase Negative (Negative) COVID-19 (PATRICK) (Negative) COVID-19 Clin Com S. pyogenes GrpA JUAN (Negative) ECG Data Attestation: I personally reviewed and interpreted this ECG as follows: Interpretation: EKG NSR rate of 71, MI interval 136, QTc 423. No STEMI Discharge Plan Discharge Clinical Impression: Viral infection Patient Disposition: Home, Self-Care Instructions: Viral Syndrome (ED) Additional Instructions: You tested negative for COVID-19. Her chest x-ray was unremarkable. Her blood work was reassuring. stay hydrated. Rest. Follow up with your doctor. If symptoms persist or worsen return to the emergency department Rajan negativo en la prueba de COVID-19. Coe radiograf?a de t?rax fue normal. Coe an?lisis de vickie fue tranquilizador. Mantente hidratado. Descansar. Celia un seguimiento con coe m?dico. Si los s?ntomas persisten o empeoran, regrese al servicio de urgencias. Prescriptions: No Action omeprazole 20 mg capsule,delayed release(DR/EC) 20 mg PO DAILY 90 Days Qty: 90 0RF Referrals: Daphne Lopez MD [Primary Care Provider] - 1 week Print Language: Telugu
--- NOTE | 2022-04-21 16:47 | ECG_ITS ---
Test Reason : SOB Blood Pressure : / mmHG Vent. Rate : 071 BPM Atrial Rate : 071 BPM P-R Int : 136 ms QRS Dur : 088 ms QT Int : 390 ms P-R-T Axes : 025 016 -08 degrees QTc Int : 423 ms Normal sinus rhythm Normal ECG When compared with ECG of 03-FEB-2021 16:49, No significant change was found Referred By: Ronna Asencio Electronically Signed By:NAVYA MEMBRENO
[2022-04-21 16:51] VITALS: BP 136/86; PULSE 79; RESP 14; TEMP 36.8; O2SAT 98
[2022-04-21 17:04] VITALS: O2SAT 98
[2022-04-21 17:13] LABS: MANUAL DIFF FLAG NO
[2022-04-21 17:16] LABS: Basophils Percent Auto 0.2 % (0-2); Eosinophils Absolute Auto 0.2 X10*3/uL (0.0-0.4); Eosinophils Percent Auto 3.4 % (0-4); Hematocrit 47.3 % (42.0-52.0); Hemoglobin 15.7 g/dl (14.0-18.0); Imm Gran Abs Auto 0.01 X10*3/uL (0.00-0.03); Imm Gran Pct Auto 0.2 % (0.0-0.4); Lymphocytes Absolute Auto 1.4 X10*3/uL (1.2-4.9); Lymphocytes Percent Auto 23.8 % (20-40); Mean Corpuscular HGB Conc 33.2 g/dl (31.0-36.0); Mean Corpuscular Hemoglobin 28.1 pg (27.0-33.0); Mean Corpuscular Volume 84.8 fL (80.0-98.0); Mean Platelet Volume 11.4 fL (9.4-12.4); Monocytes Absolute Auto 0.5 X10*3/uL (0.1-1.2); Monocytes Percent Auto 7.9 % (2-11); Neutrophils Absolute Auto 3.8 x10*3/uL (2.0-8.3); Neutrophils Percent Auto 64.5 % (45-73); Platelet Count 169 X10*3/uL (160-400); Red Blood Count 5.58 X10*6/uL (4.60-5.80); Red Cell Distribution Width 12.7 % (11.0-16.0); White Blood Count 5.9 X10*3/uL (4.8-10.8)
[2022-04-21 17:17] LABS: Appearance Urine CLEAR; Color Urine YELLOW; Glucose Urine UA Negative (NEG); Leukocyte Esterase Urine Negative (Negative); Nitrite Urine Negative (NEG); Urine Blood Negative (NEG); Urine Ketones Negative (NEG); Urine Protein Trace MG/DL (NEG-TRACE)
[2022-04-21 17:33] LABS: Strep A Nucleic Acid Negative (Negative)
[2022-04-21 17:34] LABS: Alanine Aminotransferase 31 U/L (0-40); Albumin Level 4.5 g/dL (3.5-5.0); Alkaline Phosphatase 63 U/L (39-117); Anion Gap 15 (12-20); Aspartate Amino Transferase 19 U/L (5-37); Bilirubin Direct < 0.2 mg/dL (0.0-0.5); Bilirubin Total 0.3 mg/dL (0.0-1.0); Blood Urea Nitrogen 16 mg/dL (9-16); Calcium 9.2 mg/dL (8.4-10.2); Carbon Dioxide 28 mmol/L (22-29); Chloride 102 mmol/L (96-108); Creatinine Clr Calc Pharmacy 133.4; Estimated Glomerular Filt Rate > 60; Glucose Random 84 mg/dL (60-115); Magnesium 2.4 mg/dL (1.6-2.6); Potassium 4.3 mmol/L (3.3-5.1); Sodium 141 mmol/L (135-145); Total Protein 7.8 g/dL (6.5-8.0)
[2022-04-21 17:36] LABS: Troponin-I High Sensitivity < 3.5 ng/L (<3.5-35.0)
== END 2022-04-21 18:59 | disposition home or self-care (01) ==
PROVIDERS: Physician Assistant; Emergency Provider Internal Medicine; PCP Internal Medicine
DX: B34.9 Viral infection, unspecified (principal); J02.9 Acute pharyngitis, unspecified; R51.9 Headache, unspecified; Z20.822 Contact with and (suspected) exposure to COVID-19
CPT/HCPCS: 36415; 71046; 80048; 80076; 81003; 83735; 84484; 85025; 87635; 87651; 93005; 99283; 99284

== ENCOUNTER 2022-07-21 08:51 | Emergency (ER) | payer OTHER, SELFPAY ==
[2022-07-21 08:52] VITALS: BP 150/112; PULSE 92; RESP 17; TEMP 36.6; O2SAT 98; BMI 27.3
[2022-07-21 09:09] LABS: MANUAL DIFF FLAG NO
[2022-07-21 09:10] LABS: Basophils Percent Auto 0.3 % (0-2); Eosinophils Absolute Auto 0.2 X10*3/uL (0.0-0.4); Eosinophils Percent Auto 2.7 % (0-4); Hematocrit 45.7 % (42.0-52.0); Hemoglobin 15.3 g/dl (14.0-18.0); Imm Gran Abs Auto 0.01 X10*3/uL (0.00-0.03); Imm Gran Pct Auto 0.2 % (0.0-0.4); Lymphocytes Absolute Auto 1.5 X10*3/uL (1.2-4.9); Lymphocytes Percent Auto 25.2 % (20-40); Mean Corpuscular HGB Conc 33.5 g/dl (31.0-36.0); Mean Corpuscular Hemoglobin 28.9 pg (27.0-33.0); Mean Corpuscular Volume 86.2 fL (80.0-98.0); Mean Platelet Volume 11.4 fL (9.4-12.4); Monocytes Absolute Auto 0.4 X10*3/uL (0.1-1.2); Monocytes Percent Auto 6.8 % (2-11); Neutrophils Absolute Auto 3.8 x10*3/uL (2.0-8.3); Neutrophils Percent Auto 64.8 % (45-73); Platelet Count 166 X10*3/uL (160-400); Red Cell Distribution Width 12.8 % (11.0-16.0); White Blood Count 5.9 X10*3/uL (4.8-10.8)
[2022-07-21 09:26] LABS: COVID-19 Test Negative (Negative); IDNOW Serial# 55D5AD1C
[2022-07-21 09:31] LABS: Anion Gap 12 (12-20); Blood Urea Nitrogen 17 mg/dL (9-16); Calcium 9.2 mg/dL (8.4-10.2); Carbon Dioxide 28 mmol/L (22-29); Chloride 105 mmol/L (96-108); Creatinine Clr Calc Pharmacy 135.5; Estimated Glomerular Filt Rate > 60; Glucose Random 102 mg/dL (60-115); Potassium 3.8 mmol/L (3.3-5.1); Sodium 141 mmol/L (135-145)
--- NOTE | 2022-07-21 11:40 | ED_ITS ---
HPI - General Adult General Chief complaint: General Medical Stated complaint: HBP/Headache Time Seen by Provider: 07/21/22 11:39 Source: patient Mode of arrival: ambulatory Limitations: no limitations History of Present Illness HPI narrative: 32 yo M with a PMH of chronic GERD and lumbar pain presents to the ED for complaints of headache and hypertension x 2 days. He states he had a large volume of etoh on Thursday night and awoke Thursday with a headache and dizziness. He states he has an at home BP monitor with readings 150s-140s systolic with a diastolic over 100 and a HR > 100 which prompted him to be seen in ED. Initial BP in the ED 150/112 with follow up BP 130s/90s HR 70s. He states he has not taken any OTC analgesics for his headache. He denies any vision changes, chest pain, nausea, vomiting, dizziness, or weakness at this time. Onset (ago): day(s) Location: head Radiation: non-radiation Severity: mild Severity scale (1-10): 6 Quality: dull Pain Consistency: constant Relieving factors: none Exacerbating factors: none Treatments prior to arrival: none Related Data Previous Rx's Medication Instructions Recorded omeprazole 20 mg capsule,delayed 20 mg PO DAILY 90 days #90 caps 10/09/21 release Allergies Allergy/AdvReac Type Severity Reaction Status Date / Time No Known Allergies Allergy Verified 02/12/22 07:41 [No Known Allergies*] Review of Systems Review of Systems: Yes all other systems are reviewed and are negative Constitutional: Constitutional: Reports headache(s) Eyes: Eyes: Reports no additional eye complaints and Denies loss of vision ENT: Reports Normal hearing present and Reports headache(s) Cardiovascular: Cardiovascular: Reports no additional cardiovascular complaints, Denies chest pain and Denies dyspnea Respiratory: Respiratory: Reports no additional respiratory complaints and Denies dyspnea Gastrointestinal: Gastrointestinal: Reports no additional gastrointestinal complaints, Denies dyspepsia and Denies diarrhea Musculoskeletal: Musculoskeletal: Denies numbness and Denies tingling Neurologic: Reports Normal hearing present, Denies behavioral changes, Reports headache(s), Denies loss of vision, Denies numbness and Denies tingling Psychiatric: Psychiatric: Denies behavioral changes [facility] Past Medical History Attestation statement: The following information was validated with the patient. Source: old records reviewed Medical History Chronic GERD Lumbar pain Overweight (BMI 25.0-29.9) Physical exam Right knee pain Umbilical hernia Surgical History No pertinent past surgical history Family History Family History Mother Breast cancer Father Essential (primary) hypertension Diabetes mellitus Social History Social History Housing: Apartment Alcohol intake: current Alcohol intake frequency: holidays/special occasions only Alcohol type: wine Patient Tobacco Use Status: Never used Tobacco e-Cigarette/Vaping Use: Never Used Second Hand Smoke Exposure: No Advance Directives: No Advance Directives Information Provided: Yes service: No Current occupational status: employed Current occupational exposures/hazards: No Cognitive needs: No Hearing needs: No Vision needs: No Physical Exam ED Vital Signs: Vital Signs - 24 hr 07/21/22 08:52 07/21/22 13:49 Temperature 98 F Pulse Rate 92 68 Respiratory Rate 17 18 Blood Pressure 150/112 H 143/101 H Pulse Oximetry 98 99 Oxygen Delivery Method Room Air BMI result Body Mass Index 27.3 Const General: cooperative, healthy appearing and no acute distress Nutritional Appearance: well nourished Orientation/consciousness: patient oriented x3 Limitations: no limitations HENMT Head: Yes normal to inspection and Yes atraumatic Ears: hearing grossly normal bilaterally and external ears normal General nose exam: Normal external nose present Face and sinus: Yes normal facial exam Mouth: Normal oral and palatal mucosa present Eyes General: appearance normal, both eyes and all related structures Alignment and Position: alignment normal Periorbital: periorbital findings normal Eyelids: Yes eyelids normal Conjunctivae: conjunctivae normal Sclerae: sclerae normal Pupils: Equal, round and reactive pupils present EOM: EOMs intact bilaterally Direct Ophthalmoscopy: normal light reflex and no photophobia Neck Neck: Yes normal visual inspection, Yes full ROM and Yes no meningeal signs Chest Chest palpation & inspection: normal inspection of the chest Resp Effort & Inspection: normal respiratory effort and able to speak in complete sentences Auscultation: clear to auscultation bilaterally Cardio Rate: regular rate Rhythm: regular rhythm GI Inspection: Yes normal to inspection Palpation (GI): Soft to palpation Auscultation: normal bowel sounds Skin General skin exam: no rashes or lesions noted Neuro General: patient oriented x3 and no meningeal signs Cranial nerves: Yes Equal, round and reactive pupils present and Yes Normal hearing present Cognition (Neuro): normal cognition Gait exam (Neuro): Normal gait present Motor exam (neuro): 5/5 motor strength present throughout Sensory Exam: Normal double simultaneous stimulation for sensation Extrem General: Yes normal to inspection, Yes full ROM and Yes capillary refill normal Psych Appearance: grossly normal Mental Status: mental status grossly normal Speech and movement: Normal speech and movement present Affect: normal affect Attitude: cooperative Thought process: Normal thought process present Thought content: Normal thought content present Insight: Good insight present (Psych) Judgement: Good judgement present (Psych) Medications Administered Discontinued Medications Generic Name Dose Route Start Last Admin Trade Name Freq PRN Reason Stop Dose Admin Acetaminophen 650 mg 07/21/22 12:15 07/21/22 12:32 Acetaminophen 325 Mg Tablet PO 07/21/22 12:16 650 mg ONCE ONE Administration Sodium Chloride 1,000 mls @ 999 mls/hr 07/21/22 12:00 07/21/22 12:32 Ns IV 07/21/22 13:00 999 mls/hr .Q1H1M NIECY Administration Medical Decision Making [facility] Narrative Medical decision making narrative: 32 yo M with a PMH of chronic GERD and lumbar pain presents to the ED for complaints of headache and hypertension x 2 days. He states he had a large volume of etoh on Thursday night and awoke Thursday with a headache and dizziness. 1 L NS and Tylenol given PO with relief of headache per patient. Low suspicion for stroke or meningitis. Educated to continue to monitor BP at home and keep a log, and importance of hydration. Pt recommended to follow up with PCP. Lab Data Result diagrams: 07/21/22 09:04 07/21/22 09:04 Labs: Lab Results 07/21/22 07/21/22 07/21/22 Range/Units 09:04 09:04 09:04 WBC 5.9 (4.8-10.8) X10*3/uL RBC 5.30 (4.60-5.80) X10*6/uL Hgb 15.3 (14.0-18.0) g/dl Hct 45.7 (42.0-52.0) % MCV 86.2 (80.0-98.0) fL MCH 28.9 (27.0-33.0) pg MCHC 33.5 (31.0-36.0) g/dl RDW 12.8 (11.0-16.0) % Plt Count 166 (160-400) X10*3/uL MPV 11.4 (9.4-12.4) fL Immature Gran % (Auto) 0.2 (0.0-0.4) % Neut % (Auto) 64.8 (45-73) % Lymph % (Auto) 25.2 (20-40) % [place] % (Auto) 6.8 (2-11) % Eos % (Auto) 2.7 (0-4) % Baso % (Auto) 0.3 (0-2) % Lymph # (Auto) 1.5 (1.2-4.9) X10*3/uL [place] # (Auto) 0.4 (0.1-1.2) X10*3/uL Eos # (Auto) 0.2 (0.0-0.4) X10*3/uL Baso # (Auto) 0.0 (0.0-0.2) X10*3/uL Abs Immat Gran (auto) 0.01 (0.00-0.03) X10*3/uL Absolute Neuts (auto) 3.8 (2.0-8.3) x10*3/uL Absolute Nucleated RBC 0.000 (0.0-0.012) X10*3/uL Nucleated RBC % (auto) 0.0 (0.0-0.2) /100WBC Sodium 141 (135-145) mmol/L Potassium 3.8 (3.3-5.1) mmol/L Chloride 105 (96-108) mmol/L Carbon Dioxide 28 (22-29) mmol/L Anion Gap 12 (12-20) BUN 17 H (9-16) mg/dL Creatinine 0.79 (0.5-1.4) mg/dL Estim Creat Clear Calc 135.5 Estimated GFR > 60 Random Glucose 102 (60-115) mg/dL Calcium 9.2 (8.4-10.2) mg/dL COVID-19 (PATRICK) Negative (Negative) COVID-19 Clin Com See Note Discharge Plan Discharge Clinical Impression: Headache, High blood pressure Patient Disposition: Home, Self-Care Instructions: Acute Headache (ED), Hypertension (ED) Prescriptions: No Action omeprazole 20 mg capsule,delayed release(DR/EC) 20 mg PO DAILY 90 Days Qty: 90 0RF Referrals: Daphne Lopez MD [Primary Care Provider] - Stand Alone Forms: Work/School Release Interventions: ED Discharge Assessment Last Done: 07/21/22 13:52 Discharge Date/Time: 07/21/22 13:53 Print Language: Burmese
[2022-07-21] MEDS: Acetaminophen 325 MG TABLET 650 MG PO (12:32)
[2022-07-21] MEDS: 0.9 % Sodium Chloride 1,000 ML 999 ML IV (12:32)
--- NOTE | 2022-07-21 12:50 | PC.NURSE ---
Medicated as charted, appears comfortable. No acute vomiting. Denies headache at this time.
[2022-07-21 13:49] VITALS: BP 143/101; PULSE 68; RESP 18; O2SAT 99
== END 2022-07-21 13:53 | disposition home or self-care (01) ==
PROVIDERS: Emergency Provider Emergency Medicine Emergency Medical Services; PCP Internal Medicine
DX: R51.9 Headache, unspecified (principal); I10 Essential (primary) hypertension; Z20.822 Contact with and (suspected) exposure to COVID-19
CPT/HCPCS: 36415; 80048; 85025; 87635; 99283; 99284

== ENCOUNTER 2022-10-29 14:32 | Emergency (ER) | payer OTHER, SELFPAY ==
--- NOTE | 2022-10-29 15:05 | ED.EYEPROB ---
HPI - Eye Problem General Chief complaint: Eye Problems Stated complaint: swollen eyes Time Seen by Provider: 10/29/22 15:12 Source: patient and RN notes reviewed Mode of arrival: ambulatory Limitations: no limitations History of Present Illness HPI Narrative: This is a 68-gnwh-zei-male presenting today with complaints of bilateral eye itchiness, crusting and tearing since yesterday. He reports that he woke up this morning and his eyes were crusted shut. He denies any trauma or injury to his eyes. He does not wear contact lenses. Denies vision changes. chief complaint: eye redness Onset (ago): day(s) Onset description: sudden Duration: constant Location: both eyes Eye Symptoms: redness, itching and discharge Place: home Mechanism: none Severity: moderate If Pain, Quality: burning and aching Associated symptoms: none Treatments Prior to Arrival: none Related Data Previous Rx's Medication Instructions Recorded omeprazole 20 mg capsule,delayed 20 mg PO DAILY 90 days #90 caps 10/09/21 release sulfacetamide sodium 10 % eye drops 1 drp ophthalmic (eye) Q3H 1 week 10/29/22 #5 mL Allergies Allergy/AdvReac Type Severity Reaction Status Date / Time No Known Allergies Allergy Verified 10/29/22 15:10 [No Known Allergies*] Review of Systems Review of Systems: Yes all other systems are reviewed and are negative PMFSH Past Medical History Medical History Chronic GERD Lumbar pain Overweight (BMI 25.0-29.9) Physical exam Right knee pain Umbilical hernia Surgical History No pertinent past surgical history Family History Family History Mother Breast cancer Father Essential (primary) hypertension Diabetes mellitus Social History Social History Housing: Apartment Alcohol intake: current Alcohol intake frequency: holidays/special occasions only Alcohol type: wine Patient Tobacco Use Status: Never used Tobacco e-Cigarette/Vaping Use: Never Used Second Hand Smoke Exposure: No Advance Directives: No Advance Directives Information Provided: No service: No Current occupational status: employed Current occupational exposures/hazards: No Cognitive needs: No Hearing needs: No Vision needs: No Physical Exam Vital Signs: Vital Signs: Last Vital Signs Temp 98.6 F 10/29/22 15:07 Pulse 97 10/29/22 15:07 Resp 16 10/29/22 15:07 BP 129/91 H 10/29/22 15:07 Pulse Ox 97 10/29/22 15:07 O2 Del Method 10/29/22 15:07 BMI result Body Mass Index 27.3 Appearance: Alert. Oriented X3. No acute distress. HEENT: normal inspection, bilateral conjunctiva injected with crusting on the eyelids. Left lower eyelid with external hordeolum. CVS: Normal heart rate and rhythm. Pulses normal. Respiratory: No respiratory distress. Skin: Skin warm and dry. Normal skin color. Normal skin turgor. No rashes. Extremities: Normal inspection x4, normal range of motion Neuro: Oriented X 3. No motor deficit. No sensory deficit. Course Course Course Narrative: RME - 32 [id number] presenting for evaluation of bilateral eye redness, crusting, itching since yesterday. Denies any fevers or runny nose. Exam and clinical exam are consistent with conjunctivitis, will treat with topical antibiotic drops, patient counseled and stable for d/c home. Medical Decision Making Differential Diagnosis Differential Diagnoses: The differential diagnosis associated with the presentation includes vial conjunctivitis, bacterial conjunctivitis, uveitis, iritis, allergies, less likely foreign body. External Record Review External record reviewed: Prior outpatient labs Prescription Management I considered prescription management with: Antibiotic Discharge Plan Discharge Clinical Impression: Conjunctivitis Patient Disposition: Home, Self-Care Instructions: Conjunctivitis (ED) Additional Instructions: Use prescribed antibiotic drops as directed, complete the full course. We are giving you two bottles of antibiotic eye drops. Please label each container for the right and left eye. Use warm compresses to the eyes. If any new or worsening symptoms occur, please return for further evaluation. Prescriptions: New sulfacetamide sodium 10 % drops 1 drp ophthalmic (eye) Q3H 7 Days Qty: 5 0RF No Action omeprazole 20 mg capsule,delayed release(DR/EC) 20 mg PO DAILY 90 Days Qty: 90 0RF Stand Alone Forms: Work/School Release
[2022-10-29 15:07] VITALS: BP 129/91; PULSE 97; RESP 16; TEMP 37; O2SAT 97; BMI 27.3
== END 2022-10-29 15:33 | disposition home or self-care (01) ==
PROVIDERS: Emergency Provider Emergency Medicine; PCP Internal Medicine
DX: H10.33 Unspecified acute conjunctivitis, bilateral (principal)
CPT/HCPCS: 99282; 99283

== ENCOUNTER 2022-12-29 09:53 | Emergency (ER) | payer OTHER, SELFPAY ==
--- NOTE | 2022-12-29 | ECG_ITS ---
Test Reason : high blood pressure/ dizziness Blood Pressure : / mmHG Vent. Rate : 079 BPM Atrial Rate : 079 BPM P-R Int : 138 ms QRS Dur : 086 ms QT Int : 368 ms P-R-T Axes : 044 014 -01 degrees QTc Int : 421 ms Normal sinus rhythm Normal ECG When compared with ECG of 21-APR-2022 18:19, No significant change was found Referred By: Generic ED Physician Electronically Signed By:Aki Martínez
[2022-12-29 10:08] VITALS: BP 142/91; PULSE 74; RESP 18; TEMP 37.3; O2SAT 97; BMI 27.7
[2022-12-29 13:01] VITALS: BP 126/96; PULSE 67; RESP 17; TEMP 36.8; O2SAT 100
[2022-12-29 13:14] LABS: MANUAL DIFF FLAG NO
[2022-12-29 13:15] LABS: Basophils Percent Auto 0.3 % (0-2); Eosinophils Absolute Auto 0.1 X10*3/uL (0.0-0.4); Eosinophils Percent Auto 1.6 % (0-4); Hematocrit 45.5 % (42.0-52.0); Hemoglobin 15.4 g/dl (14.0-18.0); Imm Gran Abs Auto 0.01 X10*3/uL (0.00-0.03); Imm Gran Pct Auto 0.2 % (0.0-0.4); Lymphocytes Absolute Auto 1.3 X10*3/uL (1.2-4.9); Lymphocytes Percent Auto 22.1 % (20-40); Mean Corpuscular HGB Conc 33.8 g/dl (31.0-36.0); Mean Corpuscular Hemoglobin 28.9 pg (27.0-33.0); Mean Corpuscular Volume 85.5 fL (80.0-98.0); Mean Platelet Volume 11.7 fL (9.4-12.4); Monocytes Absolute Auto 0.3 X10*3/uL (0.1-1.2); Monocytes Percent Auto 5.7 % (2-11); Neutrophils Absolute Auto 4.1 x10*3/uL (2.0-8.3); Neutrophils Percent Auto 70.1 % (45-73); Platelet Count 168 X10*3/uL (160-400); Red Blood Count 5.32 X10*6/uL (4.60-5.80); Red Cell Distribution Width 12.8 % (11.0-16.0); White Blood Count 5.8 X10*3/uL (4.8-10.8)
[2022-12-29] MEDS: Acetaminophen 325 MG TABLET 975 MG PO (13:31)
[2022-12-29 13:33] LABS: Alanine Aminotransferase 25 U/L (0-40); Albumin Level 4.3 g/dL (3.5-5.0); Alkaline Phosphatase 56 U/L (39-117); Anion Gap 11 (12-20); Aspartate Amino Transferase 13 U/L (5-37); Bilirubin Direct 0.1 mg/dL (0.0-0.5); Bilirubin Total 0.5 mg/dL (0.0-1.0); Blood Urea Nitrogen 16 mg/dL (9-16); Calcium 9.2 mg/dL (8.4-10.2); Carbon Dioxide 29 mmol/L (22-29); Chloride 105 mmol/L (96-108); Creatinine Clr Calc Pharmacy 136.2; Estimated Glomerular Filt Rate > 60; Glucose Random 93 mg/dL (60-115); Potassium 3.9 mmol/L (3.3-5.1); Sodium 141 mmol/L (135-145); Total Protein 6.9 g/dL (6.5-8.0)
--- NOTE | 2022-12-29 13:38 | ED.GENADULT ---
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 Patient is not currently on blood pressure medications and has contacted his PCP who is not able to see this patient until February 11. He otherwise denies shortness of breath, chest pain, GI or symptoms. Related Data Previous Rx's Medication Instructions Recorded omeprazole 20 mg capsule,delayed 20 mg PO DAILY 90 days #90 caps 10/09/21 release sulfacetamide sodium 10 % eye drops 1 drp ophthalmic (eye) Q3H 1 week 10/29/22 #5 mL Allergies Allergy/AdvReac Type Severity Reaction Status Date / Time No Known Allergies Allergy Verified 12/29/22 10:11 [No Known Allergies*] Review of Systems Review of Systems: Pertinent positives and negatives as stated PMFSH Past Medical History Source: nursing notes reviewed Medical History Chronic GERD Lumbar pain Overweight (BMI 25.0-29.9) Physical exam Right knee pain Umbilical hernia Surgical History No pertinent past surgical history Family History Family History Mother Breast cancer Father Essential (primary) hypertension Diabetes mellitus Social History Social History Housing: Apartment Alcohol intake: current Alcohol intake frequency: a few times a week Alcohol type: wine Patient Tobacco Use Status: Never used Tobacco Smoked in Last 30 Days: No e-Cigarette/Vaping Use: Never Used Second Hand Smoke Exposure: No Use of substances other than those prescribed or required for medical reasons: No Advance Directives: No Advance Directives Information Provided: Yes service: No Current occupational status: employed Current occupational exposures/hazards: No Cognitive needs: No Hearing needs: No Vision needs: No Physical Exam ED Vital Signs: Vital Signs - 24 hr 12/29/22 10:08 12/29/22 13:01 Temperature 99.1 F 98.3 F Pulse Rate 74 67 Respiratory Rate 18 17 Blood Pressure 142/91 H 126/96 H Pulse Oximetry 97 100 Oxygen Delivery Method Room Air Room Air BMI result Body Mass Index 27.7 VITAL SIGNS: Reviewed. GENERAL: Well developed, well nourished, in no acute distress. HEAD: Normocephalic/atraumatic EYES: PERRLA, EOMI, no nystagmus EARS: Ext canals without abnormality, TMs non-bulging and non-erythematous NOSE: Nares patent bilateral OROPHARYNX: no oral lesions noted, posterior pharynx clear and non-erythematous without noted tonsillar enlargement/erythema/exudates NECK: Supple, no adenopathy LUNGS: Normal breath sounds. No adventitious sounds or accessory muscle use. SpO2<97> CARDIOVASCULAR: Regular rate and rhythm without noted murmurs, no JVD or lower extremity edema. ABDOMEN: Soft, non-tender, non-distended with bowel sounds. MUSCULOSKELETAL: No tenderness, deformities, or effusions noted on gross inspection. EXTREMITIES: No cyanosis, clubbing or edema. SKIN: Inspection of the skin reveals no rashes NEUROLOGIC: Alert and oriented x 4. Strength and sensation to light touch were grossly intact x 4, no facial asymmetry, no pronator drift, cranial nerves 2-12 are grossly intact. Medications Administered Discontinued Medications Generic Name Dose Route Start Last Admin Trade Name Freq PRN Reason Stop Dose Admin Acetaminophen 975 mg 12/29/22 13:22 12/29/22 13:31 Acetaminophen 325 Mg Tablet PO 12/29/22 13:23 975 mg ONCE ONE Administration Medical Decision Making Medical Decision Making [facility] Narrative: 32-year-old male with history and clinical presentation of headaches and high blood pressure with self-reported social use of alcohol but denies any smoking or drug use. There is no clinical concern for neurologic deficits, meningitis, acute infection. - labs, EKG - will provide lifestyle changes for blood pressure concerns to implement until appointment with primary care provider. 1414: I reviewed all investigations and my interpretation is that this is likely a headache associated with poor hydration and a component of stress. No concerns for infection or focal issues. No history of trauma. In terms of the elevated blood pressure patient has been discharged with lifestyle recommendations and the note is being sent over to his primary care provider. He is otherwise discharged home. Differential Diagnosis Please see the discussion above Lab Data Please see the discussion above 12/29/22 13:08 12/29/22 13:08 Labs: Lab Results 12/29/22 12/29/22 12/29/22 Range/Units 13:08 13:08 13:08 WBC 5.8 (4.8-10.8) X10*3/uL RBC 5.32 (4.60-5.80) X10*6/uL Hgb 15.4 (14.0-18.0) g/dl Hct 45.5 (42.0-52.0) % MCV 85.5 (80.0-98.0) fL MCH 28.9 (27.0-33.0) pg MCHC 33.8 (31.0-36.0) g/dl RDW 12.8 (11.0-16.0) % Plt Count 168 (160-400) X10*3/uL MPV 11.7 (9.4-12.4) fL Immature Gran % (Auto) 0.2 (0.0-0.4) % Neut % (Auto) 70.1 (45-73) % Lymph % (Auto) 22.1 (20-40) % [place] % (Auto) 5.7 (2-11) % Eos % (Auto) 1.6 (0-4) % Baso % (Auto) 0.3 (0-2) % Lymph # (Auto) 1.3 (1.2-4.9) X10*3/uL [place] # (Auto) 0.3 (0.1-1.2) X10*3/uL Eos # (Auto) 0.1 (0.0-0.4) X10*3/uL Baso # (Auto) 0.0 (0.0-0.2) X10*3/uL Abs Immat Gran (auto) 0.01 (0.00-0.03) X10*3/uL Absolute Neuts (auto) 4.1 (2.0-8.3) x10*3/uL Absolute Nucleated RBC 0.000 (0.0-0.012) X10*3/uL Nucleated RBC % (auto) 0.0 (0.0-0.2) /100WBC Sodium 141 (135-145) mmol/L Potassium 3.9 (3.3-5.1) mmol/L Chloride 105 (96-108) mmol/L Carbon Dioxide 29 (22-29) mmol/L Anion Gap 11 L (12-20) BUN 16 (9-16) mg/dL Creatinine 0.79 (0.5-1.4) mg/dL Estim Creat Clear Calc 136.2 Estimated GFR > 60 Random Glucose 93 (60-115) mg/dL Calcium 9.2 (8.4-10.2) mg/dL Magnesium 2.0 (1.6-2.6) mg/dL Total Bilirubin 0.5 (0.0-1.0) mg/dL Direct Bilirubin 0.1 (0.0-0.5) mg/dL AST 13 (5-37) U/L ALT 25 (0-40) U/L Alkaline Phosphatase 56 (39-117) U/L Troponin I High Sens < 2.7 (<3.5-35.0) ng/L Total Protein 6.9 (6.5-8.0) g/dL Albumin 4.3 (3.5-5.0) g/dL Independent Interpretation I performed an independent interpretation of an: EKG Interpretation: Normal sinus rhythm, HR-79, NV/QRS/QTC is within normal limits. External Record Review External record reviewed: Outpatient record and Prior outpatient labs Discharge Plan Discharge Clinical Impression: Headache, Elevated blood pressure reading Patient Disposition: Home, Self-Care Instructions: DASH Eating Plan (ED), General Headache (ED) Additional Instructions: 1. Se recomienda usar 1000 mg de Tylenol cada 6 horas, por v?a oral, seg?n sea necesario para los luis de ryan. Tambi?n le recomendamos que aumente la cantidad de agua que ingiere. 2. Recomendar el cese completo del consumo de alcohol. 3. Para presi?n arterial elevada: Aumente el ejercicio, pierda peso, evite el alcohol, evite los MELLO (ibuprofeno, Motrin, Aleve) cuando sea posible, controle el consumo de marisol (esto incluye alimentos en caja y enlatados). 4. Mantenga gonzalez ernestina programada con gonzalez proveedor de atenci?n primaria. Regrese a la lucius de emergencias si los s?ntomas empeoran. 1. Recommend using 1000 mg of Tylenol every 6 hours, orally, as needed for headaches. Also recommend that you increase the amount of water intake. 2. Recommend complete cessation of alcohol use. 3. For elevated blood pressure: Increase exercise, weight loss, avoid alcohol, avoid NSAIDs (ibuprofen, Motrin, Aleve) when possible, watch salt intake (this includes boxed and canned foods). 4. Keep your scheduled appointment with your primary care provider. Return to the ER for any worsening symptoms. Prescriptions: No Action sulfacetamide sodium 10 % drops 1 drp ophthalmic (eye) Q3H 7 Days Qty: 5 0RF omeprazole 20 mg capsule,delayed release(DR/EC) 20 mg PO DAILY 90 Days Qty: 90 0RF Referrals: Daphne Lopez MD [Primary Care Provider] - Print Language: Kiswahili
[2022-12-29 13:56] LABS: Troponin-I High Sensitivity < 2.7 ng/L (<3.5-35.0)
== END 2022-12-29 14:22 | disposition home or self-care (01) ==
PROVIDERS: Physician Assistant; Emergency Provider Student in an Organized Health Care Education/Training Program; PCP Internal Medicine
DX: R51.9 Headache, unspecified (principal); R03.0 Elevated blood-pressure reading, without diagnosis of hypertension
CPT/HCPCS: 36415; 80048; 80076; 83735; 84484; 85025; 93005; 99283; 99284

== ENCOUNTER 2023-03-18 07:42 | Outpatient (AMB) | payer OTHER, SELFPAY ==
[2023-03-18 07:53] VITALS: BMI 27.1
--- NOTE | 2023-03-18 07:53 | MHC.OFFVIS ---
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 Patient reports this is a result of an old basketball injury from over 10yrs ago. States he has never had surgery but had one injection after that injury in [place], does not remember doctors name or facility in [place]. Patient states he has trouble walking, running and it has never been the same since date of injury. He has tried to wear a brace but after a few hours he has pain and discomfort. Pain increase and feels as if knee will give out. Patient states he is not able to play basketball due to fear of re-injuring his knee. Xrays updated in office. 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 He states about 10 years ago he was playing basketball and as he went to plant his right foot, he stepped on a rock and felt the knee shift and buckle. He did fall and as he tried to walk afterwards, he had difficulty with weight bearing. He states when this happened he was in [place] and they gave him an injection , but he did not have an MRI or PT. Since the incident, he continues to have pain with activity, sensation of the knee giving out, pain with stairs. 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 He states the injury continues to prevent him from daily activities such as playing basketball or running. [facility] Medical History Chronic GERD Lumbar pain Overweight (BMI 25.0-29.9) Physical exam Right knee pain Umbilical hernia Surgical History No pertinent past surgical history Family History Mother Breast cancer Father Essential (primary) hypertension Diabetes mellitus Social History (Updated 03/18/23 @ 08:05 by Gladys Motta [facility]) Housing: Apartment Alcohol intake: current Alcohol intake frequency: a few times a week Alcohol type: beer and wine Patient Tobacco Use Status: Former Tobacco user Tobacco use type: Cigarette e-Cigarette/Vaping Use: Never Used Second Hand Smoke Exposure: No service: No Current occupational status: employed 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 Current occupational exposures/hazards: No Cognitive needs: No Hearing needs: No Vision needs: No Review of Systems Const All systems reviewed & are unremarkable except as noted in HPI and below Physical Exam Vital Signs: BMI result Body Mass Index 27.1 Const General: cooperative, healthy appearing, comfortable, no acute distress, well developed and alert Orientation/consciousness: patient oriented x3 HEENT Head: Yes normal to inspection, Yes normocephalic and Yes atraumatic Eyes General: appearance normal, both eyes and all related structures Resp Effort & Inspection: normal respiratory effort and able to speak in complete sentences Cardio Rate: regular rate Peripheral pulses: Peripheral pulses 2+ throughout GI Palpation (GI): Soft to palpation Skin Lesions: no lesions Rashes: no rashes Neuro General: patient oriented x3 Extrem Other: Right knee skin intact, no erythema or joint effusion. Tenderness along the medial and lateral joint line. Full ROM with crepitus. Negative Tianna?s. Slight ligamentous laxity when compared to the contralateral side. NVI. Results Reviewed Results Reviewed: Xrays were obtained in the office today and personally reviewed by me of the right knee show mild medial and PF compartment OA Assessment & Plan Assessment & Plan (1) Internal derangement of right knee: Code(s): M23.91 - Unspecified internal derangement of right knee (2) Osteoarthritis of right knee: Code(s): M17.11 - Unilateral primary osteoarthritis, right knee Plan Given the mechanism of injury and continued instability he has that he experiences in the right knee we are going to order and MRI to further evaluate the ligamentous structure. he will also be sent to physical therapy to work on ROM, core stabilization and quad and glute strengthening. He was fit for an off the shelf knee brace today and he will see me back once the scan is complete. He will also continue his current work restrictions of no lifting more than 20 pounds. Orders: Orders XR knee RT 2V Today M25.569 - Pain in unspecified knee XR knee standing BI Today M25.561 - Pain in right knee, M25.562 - Pain in left knee PT Evaluation and Treatment Today M17.11 - Unilateral primary osteoarthritis, right knee, M23.91 - Unspecified internal derangement of right knee MR knee RT wo con Today M17.11 - Unilateral primary osteoarthritis, right knee, M23.91 - Unspecified internal derangement of right knee Patient Instructions: Scribed for Zo Mason PA-C, by Gurpreet Miller, medical staff services manager, on 03/18/2023 at 8:00 AM EST. I, Zo Mason PA-C, have personally reviewed and agree with the information entered by the scribe. Coding Level of Care Code New Pt Level 3 (81632) Diagnoses Internal derangement of right knee M23.91 Osteoarthritis of right knee M17.11
== END 2023-03-18 08:34 | disposition home or self-care (01) ==
PROVIDERS: PCP Internal Medicine; Visit Provider Physician Assistant
DX: M23.91 Unspecified internal derangement of right knee (principal); M17.11 Unilateral primary osteoarthritis, right knee
CPT/HCPCS: 99203

== ENCOUNTER 2023-03-18 10:56 | Outpatient (REF) | payer OTHER, SELFPAY ==
--- NOTE | ~2023-03-18 | XR_ITS ---
X-RAY RIGHT KNEE X-RAY STANDING VIEW OF BOTH KNEES CLINICAL HISTORY: Pain. COMPARISON: Radiograph of the right knee 01/23/2021. TECHNIQUE: 2 views of the right knee. Single standing AP view of both knees. FINDINGS: Chronic mild lateral subluxation of the tibia with respect to the distal femur of the right knee. No acute fractures. Moderate tricompartmental subcortical sclerosis and joint space narrowing in the right knee with small marginal osteophytes along the lateral compartment, progressed compared to 2020. No erosions or chondrocalcinosis. Minimal joint space narrowing of the medial compartment in the left knee. Small right joint effusion. XR/XR knee standing BI IMPRESSION: 1. No acute fractures. 2. 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 3. Moderate degenerative osteoarthritis in the right knee, progressed compared to 2020. 4. Minimal degenerative changes in the left knee. 5. Small right joint effusion.
--- NOTE | ~2023-03-18 | XR_ITS ---
X-RAY RIGHT KNEE X-RAY STANDING VIEW OF BOTH KNEES CLINICAL HISTORY: Pain. COMPARISON: Radiograph of the right knee 01/23/2021. TECHNIQUE: 2 views of the right knee. Single standing AP view of both knees. FINDINGS: Chronic mild lateral subluxation of the tibia with respect to the distal femur of the right knee. No acute fractures. Moderate tricompartmental subcortical sclerosis and joint space narrowing in the right knee with small marginal osteophytes along the lateral compartment, progressed compared to 2020. No erosions or chondrocalcinosis. Minimal joint space narrowing of the medial compartment in the left knee. Small right joint effusion. XR/XR knee RT 2V IMPRESSION: 1. No acute fractures. 2. 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 3. Moderate degenerative osteoarthritis in the right knee, progressed compared to 2020. 4. Minimal degenerative changes in the left knee. 5. Small right joint effusion.
== END 2023-03-18 10:57 | disposition home or self-care (01) ==
LOC: HO.HOSX 10:56
PROVIDERS: Visit Provider Physician Assistant
DX: M17.11 Unilateral primary osteoarthritis, right knee (principal); M23.91 Unspecified internal derangement of right knee; M25.562 Pain in left knee
CPT/HCPCS: 73560; 73565; 99202

== ENCOUNTER 2023-05-22 15:00 | Outpatient (RCR) | payer OTHER, SELFPAY ==
--- NOTE | 2023-04-17 16:02 | MHC.PT.EP ---
[facility] [place] [facility] [place] [facility] [place] [facility] [address] Ji Soto [address] [phone] F: [phone] F: [phone] F: [phone] F: [phone] Physical Therapy Plan of Care Date of Evaluation: Date of Surgery: N/A Diagnosis: R knee pain (RL) Assessment: pt is a 32 y/o male presenting to physical therapy w/ referring diagnosis of unspecified internal derangement of right knee. Signs and symptoms consistent w/ potential hypermobility vs. tear of MCL given his MIKI, special testing, and valgus presentation. Xray (+) for chronic lateral subluxation of tibia on femur, as well. Impairments include pain, decreased range of motion, decreased strength, impaired functional mobility, impaired postural awareness, and altered ambulation mechanics. pt is a fair candidate for skilled PT due to age, potential remediation of impairments, typical disease/condition progression and prognosis, comorbidities, and motivation. pt would benefit from skilled PT intervention to provide a tailored strengthening and stretching exercise program, functional training, gait training, postural re-training, neuromuscular re-education, modalities as needed for pain, equipment safety demonstration. Frequency and Duration: The patient will be seen 2x/wk for 4 wks Short Term Goals: pt will be I w/ HEP to promote self-management of condition. pt will improve R knee extension to 5/5 to promote ease in stair navigation. 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 Treatment Plan: Modalities to reduce pain, spasms and effusion. Manual therapy to restore motion and function. Therapeutic exercise to improve strength and flexibility. Neuromuscular re-education for posture and balance. Therapeutic activities to return to functional activities of daily living. Electronically signed by: Aaliyah Reynolds PT, DPT Please sign and return to therapist. Thank you for your referral.
--- NOTE | 2023-06-22 12:18 | MHC.PT.EP ---
[facility] [place] [facility] [place] [facility] [place] [facility] [address] Ji Soto [address] [phone] F: [phone] F: [phone] F: [phone] F: [phone] Physical Therapy Plan of Care Date of Evaluation: 04/17/23 Date of Surgery: N/A Diagnosis: R knee pain (RL) Assessment: pt is a 32 y/o male presenting to physical therapy w/ referring diagnosis of unspecified internal derangement of right knee. Signs and symptoms consistent w/ potential hypermobility vs. tear of MCL given his MIKI, special testing, and valgus presentation. Xray (+) for chronic lateral subluxation of tibia on femur, as well. Impairments include pain, decreased range of motion, decreased strength, impaired functional mobility, impaired postural awareness, and altered ambulation mechanics. pt is a fair candidate for skilled PT due to age, potential remediation of impairments, typical disease/condition progression and prognosis, comorbidities, and motivation. pt would benefit from skilled PT intervention to provide a tailored strengthening and stretching exercise program, functional training, gait training, postural re-training, neuromuscular re-education, modalities as needed for pain, equipment safety demonstration. Frequency and Duration: The patient will be seen 2x/wk for 4 wks Short Term Goals: pt will be I w/ HEP to promote self-management of condition. pt will improve R knee extension to 5/5 to promote ease in stair navigation. Fpc Goals: pt will report a statistically significant improvement in self-reported outcome measure, LEFI, to promote return to PLOF. pt will demo proper squatting mechanics to pick up driver objects from floor level. Treatment Plan: Modalities to reduce pain, spasms and effusion. Manual therapy to restore motion and function. Therapeutic exercise to improve strength and flexibility. Neuromuscular re-education for posture and balance. Therapeutic activities to return to functional activities of daily living. Electronically signed by: Aaliyah Reynolds PT, DPT Please sign and return to therapist. Thank you for your referral.
== END 2023-06-22 12:18 | disposition home or self-care (01) ==
LOC: HO.PT 15:00
PROVIDERS: PCP Internal Medicine; Visit Provider Physician Assistant
DX: M23.91 Unspecified internal derangement of right knee (principal); M17.11 Unilateral primary osteoarthritis, right knee
CPT/HCPCS: 97110; 97161

== ENCOUNTER 2023-07-03 08:05 | Outpatient (REF) | payer OTHER, SELFPAY ==
--- NOTE | ~2023-07-03 | MR_ITS ---
EXAMINATION: MR KNEE WITHOUT CONTRAST, RIGHT CLINICAL INFORMATION: Right knee locking and instability. Osteoarthritis. COMPARISON: Most recent right knee radiographs dated 03/18/2023. TECHNIQUE: MRI of the knee without contrast was performed using routine sequences on a high-field scanner. FINDINGS: MENISCI: Medial Meniscus: Mild tibial articular surface fraying through the periphery of the posterior horn. Lateral Meniscus: Oblique inner margin/femoral articular surface tear of the posterior horn with complex tearing extending through the posterior root. There is a complete versus near-complete tear of the posterior root. Posterior parameniscal cysts measuring up to 0.9 cm. LIGAMENTS: Cruciate: Absence of the anterior cruciate ligament without edema, consistent with a remote, complete full-thickness ligament tear and ligament resorption. Intact posterior cruciate ligament. Collateral: Intact. EXTENSOR MECHANISM: Intact ARTICULAR CARTILAGE/BONE: Patellofemoral Compartment: Intact articular cartilage. Medial Compartment: Mild weightbearing articular cartilage signal heterogeneity with tiny marginal osteophytes. Lateral Compartment: Mild articular cartilage signal heterogeneity and surface irregularity with small marginal osteophytes. JOINT FLUID AND BURSAE: Trace joint effusion. MR/MR knee RT wo con IMPRESSION: 1. Oblique inner margin/femoral articular surface tear of the lateral meniscus posterior horn with complex tearing extending through the posterior root. Posterior parameniscal cysts measuring up to 0.9 cm. 2. Mild tibial articular surface fraying through the periphery of the medial meniscus posterior horn. 3. Remote, complete tear of the anterior cruciate ligament with ligament resorption. 4. Mild medial and lateral compartment osteoarthritis. Trace joint effusion.
== END 2023-07-03 08:06 | disposition home or self-care (01) ==
LOC: HO.MRI 08:05
PROVIDERS: PCP Internal Medicine; Visit Provider Physician Assistant
DX: M17.11 Unilateral primary osteoarthritis, right knee (principal); M23.91 Unspecified internal derangement of right knee
CPT/HCPCS: 73721

== ENCOUNTER 2023-07-27 10:40 | Outpatient (AMB) | payer OTHER, SELFPAY ==
--- NOTE | 2023-07-27 10:51 | A.OFFVIS_ITS ---
Intake Intake Visit Reasons: OV- MRI Review RT Knee/ discuss surgery Intake Note: Jhonatan is a 33 year old male who presents today for a Right Knee MRI Review Allergies No Known Allergies [No Known Allergies*] Allergy (Verified 07/27/23 10:51) HPI OV- MRI Review RT Knee/ discuss surgery HPI Details Jhonatan is a 33 year old man who presents for an MRI review of his right knee. He reports having pain and weakness in his knee since an injury playing basketball in ~2012. He says he continues to have pain with activity, along with his knee buckling and limiting his ability to engage in sports, which he finds frustrating. He says this injury occurred in [place], and he received an injection to his knee while there. He denies any other treatment options. He has an 8 year old child at home, which he says can be difficult for him sometimes, and a hx of HTN. [facility] Medical History Chronic GERD Lumbar pain Overweight (BMI 25.0-29.9) Physical exam Right knee pain Umbilical hernia Surgical History No pertinent past surgical history Family History Mother Breast cancer Father Essential (primary) hypertension Diabetes mellitus Social History (Updated 03/18/23 @ 08:05 by Gladys Motta [facility]) Housing: Apartment Alcohol intake: current Alcohol intake frequency: a few times a week Alcohol type: beer and wine Patient Tobacco Use Status: Former Tobacco user Tobacco use type: Cigarette e-Cigarette/Vaping Use: Never Used Second Hand Smoke Exposure: No service: No Current occupational status: employed 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 Current occupational exposures/hazards: No Cognitive needs: No Hearing needs: No Vision needs: No Review of Systems Const All systems reviewed & are unremarkable except as noted in HPI and below Physical Exam Const General: no acute distress, alert and awake Orientation/consciousness: patient oriented x3 HEENT Head: Yes normocephalic and Yes atraumatic Eyes EOM: EOMs intact bilaterally Resp Effort & Inspection: normal respiratory effort and able to speak in complete sentences Cardio Jugular venous distension: no JVD Skin General skin exam: turgor normal Rashes: no rashes Neuro General: patient oriented x3 Extrem Other: Right Knee: 1+ valgus 2+ ant drawer no effusion Full ROM Psych Appearance: grossly normal Affect: normal affect Attitude: cooperative Results Reviewed Results Reviewed: I personally reviewed relevant MR images 1. Oblique inner margin/femoral articular surface tear of the lateral meniscus posterior horn with complex tearing extending through the posterior root. Posterior parameniscal cysts measuring up to 0.9 cm. 2. Mild tibial articular surface fraying through the periphery of the medial meniscus posterior horn. 3. Remote, complete tear of the anterior cruciate ligament with ligament resorption. 4. Mild medial and lateral compartment osteoarthritis. Trace joint effusion. 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 He complains of pain with daily activity, along with weakness, and feels limited in his ADLs. He denies any prior treatment options. I discussed his diagnosis and treatment options. I recommend a right knee ACL reconstruction with possible meniscal repair. I discussed the risks, benefits, and alternatives including, but not limited to, the risk of pain, infection, stiffness, need for further surgery as well as potential medical complications such as blood clots, pulmonary embolism and cardiac complications. I discussed the recovery timeline and process as well as the importance of PT. Jhonatan is a good candidate for this surgery, and he wishes to proceed with this decision. He will speak with Huyen to schedule this procedure. 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
== END 2023-07-27 12:04 | disposition home or self-care (01) ==
PROVIDERS: PCP Internal Medicine; Visit Provider Orthopaedic Surgery
DX: M23.51 Chronic instability of knee, right knee (principal)
CPT/HCPCS: 99214

== ENCOUNTER → 2023-07-27 10:40 | Outpatient (BNVA) | payer OTHER, SELFPAY | PROVIDERS: PCP Internal Medicine; Visit Provider Orthopaedic Surgery | DX: M23.51 Chronic instability of knee, right knee (principal) | CPT/HCPCS: 99212 ==

== ENCOUNTER 2023-09-10 15:07 | Outpatient (AMB) | payer OTHER, SELFPAY ==
--- NOTE | 2023-09-10 15:20 | MHC.OFFVIS ---
Intake Intake Visit Reasons: Pre-Rt ACL 09/16/23 Intake Note: Jhonatan is a 33 year old male who presents today for a pre op appointment of his Rt ACL 09/16/23 NE. Allergies No Known Allergies [No Known Allergies*] Allergy (Verified 07/27/23 10:51) HPI Pre-Rt ACL 09/16/23 HPI Details 33-year-old right hand dominant male, who is [place] speaking, presents in the office today for his preoperative history and physical exam prior to a right ACL repair to be performed on 09/16/[address] Camarillo. Patient has no known allergy history. Patient not currently taking any medication. Patient has a medical history, as follows: -GERD -Umbilical hernia -Heart Murmur Patient has no known surgical history. Patient has a social history, as follows: -Former tobacco user; cigarettes. 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 [facility] Medical History Chronic GERD Lumbar pain Overweight (BMI 25.0-29.9) Physical exam Right knee pain Umbilical hernia Surgical History No pertinent past surgical history Family History Mother Breast cancer Father Essential (primary) hypertension Diabetes mellitus Social History (Updated 03/18/23 @ 08:05 by Gladys Motta [facility]) Housing: Apartment Alcohol intake: current Alcohol intake frequency: a few times a week Alcohol type: beer and wine Patient Tobacco Use Status: Former Tobacco user Tobacco use type: Cigarette e-Cigarette/Vaping Use: Never Used Second Hand Smoke Exposure: No service: No Current occupational status: employed 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 Current occupational exposures/hazards: No Cognitive needs: No Hearing needs: No Vision needs: No Review of Systems Const All systems reviewed & are unremarkable except as noted in HPI and below Physical Exam Const General: cooperative, healthy appearing, comfortable, no acute distress, well developed, alert and awake Orientation/consciousness: patient oriented x3 HEENT Head: Yes normal to inspection, Yes normocephalic and Yes atraumatic Eyes General: appearance normal, both eyes and all related structures EOM: EOMs intact bilaterally Neck Neck: Yes normal visual inspection and Yes no lymphadenopathy Resp Effort & Inspection: normal respiratory effort and able to speak in complete sentences Cardio Jugular venous distension: no JVD Rate: regular rate Peripheral pulses: Peripheral pulses 2+ throughout GI Inspection: Yes normal to inspection Palpation (GI): Soft to palpation Skin General skin exam: no rashes or lesions noted Rashes: no rashes Neuro General: patient oriented x3 Extrem Other: Right Knee: Skin is clean, dry, and intact. 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 Collier is a 33-year-old right hand dominant male, who is [place] speaking, presents in the office today for his preoperative history and physical exam prior to a right ACL repair to be performed on 09/16/[address] Camarillo. Patient has no known allergy history. Patient not currently taking any medication. Patient has a medical history, as follows: -GERD -Umbilical hernia -Heart Murmur Patient has no known surgical history. Patient has a social history, as follows: -Former tobacco user; cigarettes. 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 We discussed the risks, benefits and alternatives to the surgery as well as the rehabilitation course. The risks; which include, but are not limited to infection, bleeding, nerve injury, ongoing pain, swelling, and stiffness, perioperative risk of injury to bones and soft tissues, and blood clots. I have answered all questions and with their understanding they have consented to move forward with a right ACL repair to be performed on 09/16/[address] Augustin Camarillo. Post operative medications were sent to the pharmacy, Oxycodone-acetaminophen 5-325 (Percocet) PO Q4-6H PRN, quantity 42 tabs for 7 days and Morphine ER (MS Contin) 15 mg PO Q12H PRN, quantity 6 tabs for 3 days, while in the office today. The patient was instructed that he should obtain the prescription prior to surgery but should not consume until after the procedure; as these should only be taken for post operative pain management. Should the patient take these medications prior to surgery a refill will not be sent to the pharmacy until their scheduled refill date. Follow up will be at the post operative appointment on 09/22/2022 at 1:45 pm, or sooner if needed. Medications: New oxycodone-acetaminophen 5-325 mg Partial Fill upon patient request. 1 tab PO Q4-6H PRN 42 tabs 0RF pain 7 days morphine ER (MS Contin) Partial Fill upon patient request. 15 mg PO Q12H 6 tabs 0RF 3 days Patient Instructions: Scribed for Stephy Sexton PA-C by Shelley Rodriguez administrative medical director, on 09/10/2023 at 3:11 pm, EST. 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
== END 2023-09-10 16:03 | disposition home or self-care (01) ==
PROVIDERS: PCP Internal Medicine; Visit Provider Physician Assistant
DX: M23.51 Chronic instability of knee, right knee (principal)
CPT/HCPCS: 99024

== ENCOUNTER → 2023-09-10 15:07 | Outpatient (BNVA) | payer OTHER, SELFPAY | PROVIDERS: PCP Internal Medicine; Visit Provider Physician Assistant | DX: M23.51 Chronic instability of knee, right knee (principal) | CPT/HCPCS: 99212 ==

== ENCOUNTER 2023-09-16 05:46 | Day surgery (SDC) | payer OTHER, SELFPAY ==
[2023-09-14 07:12] VITALS: BMI 27.1
--- NOTE | 2023-09-15 08:08 | HO.ANESPROP2 ---
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 (Acute) Osteoarthritis of right knee (Acute) Internal derangement of right knee (Acute) Left elbow pain (Acute) Thoracic spine pain (Acute) Rib pain (Acute) Neck pain (Acute) Lumbar pain (Acute) Physical exam (Acute) Chronic GERD (Acute) Umbilical hernia (Acute) Overweight (BMI 25.0-29.9) (Acute) Right knee pain (Acute) Past Medical History Medical History History of cardiac murmur as a child Lumbar pain Physical exam Chronic GERD Umbilical hernia Overweight (BMI 25.0-29.9) Right knee pain Family History Family History Mother Breast cancer Father Essential (primary) hypertension Diabetes mellitus Surgical History Surgical History No pertinent past surgical history Social History Social History Housing: Apartment Alcohol intake: current Alcohol intake frequency: a few times a week Alcohol type: beer and wine Patient Tobacco Use Status: Former Tobacco user Tobacco use type: Cigarette e-Cigarette/Vaping Use: Never Used Second Hand Smoke Exposure: No Use of substances other than those prescribed or required for medical reasons: No Are you DNR?: No Advance Directives: No Advance Directives Information Provided: Yes service: No Current occupational status: employed 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 Current occupational exposures/hazards: No Cognitive needs: No Hearing needs: No Vision needs: No Meds Allergies Allergy/AdvReac Type Severity Reaction Status Date / Time No Known Allergies Allergy Verified 09/16/23 06:08 [No Known Allergies*] Home Medications Medication Instructions Recorded Confirmed Last Taken Type omega-3 fatty acids-vitamin E 1 cap PO DAILY 0109/16/23 09/14/23 History 1,000 mg capsule Exam Height,Weight and Vital Signs: Height 5 ft 7 in Weight 78.471 kg Assessment and Plan Assessment Anesthesia Assessment: Chart Reviewed Documented by User: Doris Ptael MD 09/16/23 08:13 PMFSH Past Medical History Medical History History of cardiac murmur as a child Lumbar pain Physical exam Chronic GERD Umbilical hernia Overweight (BMI 25.0-29.9) Right knee pain Family History Family History Mother Breast cancer Father Essential (primary) hypertension Diabetes mellitus Family history of problems with anesthesia: No Surgical History Surgical History No pertinent past surgical history History of Problems with Anesthesia: No Social History Social History Housing: Apartment Alcohol intake: current Alcohol intake frequency: a few times a week Alcohol type: beer and wine Patient Tobacco Use Status: Former Tobacco user Tobacco use type: Cigarette e-Cigarette/Vaping Use: Never Used Second Hand Smoke Exposure: No Use of substances other than those prescribed or required for medical reasons: No Are you DNR?: No Advance Directives: No Advance Directives Information Provided: Yes service: No Current occupational status: employed 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 Current occupational exposures/hazards: No Cognitive needs: No Hearing needs: No Vision needs: No Meds Allergies Allergy/AdvReac Type Severity Reaction Status Date / Time No Known Allergies Allergy Verified 09/16/23 06:08 [No Known Allergies*] Home Medications Medication Instructions Recorded Confirmed Last Taken Type omega-3 fatty acids-vitamin E 1 cap PO DAILY 09/16/23 09/16/2324 History 1,000 mg capsule Exam Airway Mallampati Class: II TM Dist: >3cm Neck ROM: Full Heart: rrr Lungs: cta Assessment and Plan Assessment Anesthesia Assessment: Anesthesia Plan Discussed Final Anesthetic Review Family History of Problems with Anesthesia: No History of Problems with Anesthesia: No NPO: Yes ASA Class: II Final Preanesthetic Review: No Changes in Pt Med Stat, Meds/Allgs Chart Reviewed, Consent Obtained/Reviewed and Anes Risks/Benef Reviewed Patient Risk: Low Procedure Risk: Low Anesthetic Plan Anesthetic Plan: GA and Regional Block Disposition: Standard PACU
[2023-09-16] VITALS (12 sets, daily range): BP systolic 127–158; BP diastolic 77–99; PULSE 77–91; RESP 14–20; TEMP 36.2–36.8; O2SAT 94–98; BMI 26.6
[2023-09-16] MEDS: Lactated Ringers 1,000 ML 100 ML IVCONT (06:39)
--- NOTE | 2023-09-16 07:36 | MHC.SHP ---
Pre-Procedural Eval Section A Date of Service: 09/16/23 The patient is an INPATIENT: No Changes since office visit: No Cold of Flu in the past 2 weeks, No New Medical Problems, No Changes in Medication and No Patient answered all questions The History & Physical has been completed within 30 days and I have reviewed it.: Yes Section B Chief Complaint: Chronic instability of knee, right knee Allergies: Allergies Allergy/AdvReac Type Severity Reaction Status Date / Time No Known Allergies Allergy Verified 09/16/23 06:08 [No Known Allergies*] Plan I have reviewed the history and physical and performed a pertinent physical examination on my patient. No changes have occurred unless specified. Time Spent With Patient Time: Total time managing care of this patient today ____ minutes.
--- NOTE | 2023-09-16 10:01 | P.BOP_ITS ---
Brief Operative Note Date of Service: 09/16/23 Pre-op diagnosis: Right ACL tear Post-op diagnosis: other (1) right ACL tear 2) RIght MMT) Procedure: 1) ACL reconstruction with allograft 2) Medial meniscus repair Implants: Ham and Nephew Fast fix meniscal cinch x 5 Ham and Nephew ACL femoral button and 10x25 tibial interference screw Surgeon: Augustin Camarillo MD Anesthesia: GETA and regional Was an Feed Blender used for this Procedure?: Yes Feed Blender: Stephy Sexton Estimated blood loss (mL): 25 Tourniquet time (min): 70 IV fluids (mL): 1,000 Pathology: none sent Condition: stable Disposition: PACU
[2023-09-16] MEDS: fentaNYL citrate/PF 100 MCG/2 ML VIAL 50 MCG IVPUSH ×2 (10:19→10:27)
[2023-09-16] MEDS: oxyCODONE HCl Immed Release 5 MG TABLET PO (10:20)
--- NOTE | 2023-09-18 16:18 | W.PM.OPN ---
Operative Note Operative Note Date of Service: 09/16/23 Narrative: Date of Service: 09/16/23 Pre-op diagnosis: Right ACL tear Post-op diagnosis: other (1) right ACL tear 2) RIght MMT) Procedure: 1) ACL reconstruction with allograft 2) Medial meniscus repair Implants: Ham and Nephew Fast fix meniscal cinch x 5 Ham and Nephew ACL femoral button and 10x25 tibial interference screw Surgeon: Augustin Camarillo MD Anesthesia: GETA and regional Was an Developmental Mathematics Instructor used for this Procedure?: Yes Developmental Mathematics Instructor: Stephy Sexton Estimated blood loss (mL): 25 Tourniquet time (min): 70 IV fluids (mL): 1,000 Pathology: none sent Condition: stable Disposition: PACU Procedure in detail: Patient was brought to the operating room placed supine on the arthroscopic table and prepped and draped in standard sterile fashion. A time-out was called to identify proper site proper procedure proper surgeon and IV antibiotics per weight were administered. Under anesthesia she had a + pivot shift. I began by exsanguinating the limb and insufflating tourniquet to 300 mm Hg. Then made a standard anterolateral stab incision. The knee was insufflated with water and 30 degree arthroscope was placed. There was grade 1 fibrillations of the patella but overall suprapatellar pouch and the gutters were clean. I descended into the medial compartment where I made my far medial portal under direct visualization. There was an unstable bucket handle medial meniscus tear in the red/white zone. The root was intact and there were no cartilage changes of the MFC. I used five Fast Pass meniscal cinches (Ham and Nephew) to repair the tear through the AM and AL portal. I was satisfied with the extent of repair. I then examined the notch where there was a + empty wall sign and an intact PCL. I debrided the stump and acl footprint and performed a limited notchplasty. I then, through a far AM portal and a 7mm behind the back guide, drilled a k-wire through the LFC with the knee in hyper-flexion. I measured the tunnel as a 34 and then after sizing the allograft on the back table drilled a 28 mm tunnel with a 10 mm reamer. The final 6 mm was drilled with a 4.5 reamer. I then pulled a suture through the femoral tunnel and turned my attention to the tibia. I did examine the femoral tunnel and was satisfied with the posterior wall and its location low and medial at the anatomic footprint. I placed my tibial drill guide in 55 deg and, through a anteromedial inc just lateral to the tibial tubercle placed a k-wire into the notch exiting just medial to the anterior horn insertion of the lateral meniscus. I then over-reamed with a 10mm reamer. I cleaned the tunnels up with a shaver. On the back table I whip-stitched the allograft to fit through a 10 aperture and attached the femoral button to the looped end. I placed the graft on 15lbs of tension for 10 minutes. I then passed the allograft through the tibial tunnel and femoral tunnel and flipped the button. I cycled the knee about 10-15 cycles and then placed a tibial interference screw with the knee in hyper-extension while holding the graft taught. Once I was satisfied that the interference screw was buried I examined the ACL and the medial meniscus repair. The repair was stable and the ACL was not impinging and there was a negative pivot shift. I then removed all instrumentation and closed the incisions with nylon. Patient was then placed in sterile dressings and a hinged knee brace. She was then extubated brought recovery room stable condition. There were no known complications.
== END 2023-09-16 11:20 | disposition home or self-care (01) ==
PROVIDERS: PCP Internal Medicine; Visit Provider Orthopaedic Surgery
PROC: (CPT 27428; principal; 2023-09-16 07:30)
DX: S83.511A Sprain of anterior cruciate ligament of right knee, initial encounter (principal); S83.211A Bucket-handle tear of medial meniscus, current injury, right knee, initial encounter; X58.XXXA Exposure to other specified factors, initial encounter; Y93.9 Activity, unspecified; Y92.9 Unspecified place or not applicable; Y99.8 Other external cause status; M54.50 Low back pain, unspecified; K21.9 Gastro-esophageal reflux disease without esophagitis; K42.9 Umbilical hernia without obstruction or gangrene; Z87.891 Personal history of nicotine dependence
CPT/HCPCS: 29888; 29882; C1713; C1769; J0171; J0665; J0690; J1100; J2250; J2405; J2704; J3010

== ENCOUNTER → 2023-09-16 05:46 | Outpatient (BNV) | payer OTHER, SELFPAY | PROVIDERS: PCP Internal Medicine; Visit Provider Orthopaedic Surgery | DX: S83.511D Sprain of anterior cruciate ligament of right knee, subsequent encounter (principal); S83.211A Bucket-handle tear of medial meniscus, current injury, right knee, initial encounter | CPT/HCPCS: 29882; 29888 ==

== ENCOUNTER 2023-09-22 09:30 | Outpatient (REF) | payer OTHER, SELFPAY ==
--- NOTE | ~2023-09-22 | XR_ITS ---
EXAMINATION: XR KNEE, RIGHT CLINICAL INFORMATION: Pain. COMPARISON: None TECHNIQUE: An AP view of the right knee is submitted. FINDINGS: Bony alignment and mineralization are normal. There has been a prior ACL repair. No fracture or dislocation is seen. The lateral and medial joint space compartments are well maintained. No abnormal soft tissue calcification. XR/XR knee RT 1V IMPRESSION: 1. There are postoperative changes consistent with a prior ACL repair. 2. The lateral and medial joint space compartments are well-maintained.
== END 2023-09-22 09:31 | disposition home or self-care (01) ==
LOC: HO.HOSX 09:30
PROVIDERS: Visit Provider Physician Assistant
DX: M25.561 Pain in right knee (principal); M23.51 Chronic instability of knee, right knee; Z47.89 Encounter for other orthopedic aftercare; Z98.890 Other specified postprocedural states
CPT/HCPCS: 73560; 99212

== ENCOUNTER 2023-09-22 13:00 | Outpatient (AMB) | payer OTHER, SELFPAY ==
--- NOTE | 2023-09-22 13:23 | A.OFFVIS_ITS ---
Intake Intake Visit Reasons: PO-Rt ACL 09/16/23 NE Intake Note: Jhonatan is a 33 year old male who presents today for a post op appointment s/p right ACL 09/16/23 NE. Patient reports he is doing well having some discomfort in the incision site. Allergies No Known Allergies [No Known Allergies*] Allergy (Verified 09/22/23 13:25) HPI PO-Rt ACL 09/16/23 NE HPI Details 33-year-old right hand dominant male, wh o is [place]ian speaking, presents in the office today 6 days status post right ACL reconstruction with allograft and medial meniscus repair, which was performed on 09/16/[address] Camarillo. He confirms he is scheduled to start physical therapy on 09/24/2023. [facility] Medical History History of cardiac murmur as a child Lumbar pain Physical exam Chronic GERD Umbilical hernia Overweight (BMI 25.0-29.9) Right knee pain Surgical History No pertinent past surgical history Family History Mother Breast cancer Father Essential (primary) hypertension Diabetes mellitus Social History Housing: Apartment Alcohol intake: current Alcohol intake frequency: a few times a week Alcohol type: beer and wine Patient Tobacco Use Status: Former Tobacco user Tobacco use type: Cigarette e-Cigarette/Vaping Use: Never Used Second Hand Smoke Exposure: No service: No Current occupational status: employed 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 Sutures intact. No surrounding erythema or drainage. No signs of infection. Able to dorsiflex and plantarflex. Calf is supple and nontender. NVI. 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 Collier is a 33-year-old right hand dominant male, who is [place]ian speaking, presents in the office today 6 days status post right ACL reconstruction with allograft and medial meniscus repair, which was performed on 09/16/[address] Camarillo. He confirms he is scheduled to start physical therapy on 09/24/2023. Sutures were removed and steri-stripes were applied. The patient was educated he will remain in the brace for 6 weeks post-op and d/c once quad control allows.He will work with physical therapy. ACL and meniscus repair protocol. Follow up will be in [address] Camarillo, or sooner if needed. X-rays of the right knee which were obtained while in the office today and were reviewed by me, Stephy Sexton PA-C, revealed intact endobutton with acceptable positioning. 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
== END 2023-09-22 13:56 | disposition home or self-care (01) ==
PROVIDERS: PCP Internal Medicine; Visit Provider Physician Assistant
DX: M23.51 Chronic instability of knee, right knee (principal)
CPT/HCPCS: 99024

== ENCOUNTER 2023-10-13 22:24 | Emergency (ER) | payer OTHER, SELFPAY ==
[2023-10-13 22:28] VITALS: BP 144/95; PULSE 87; RESP 18; TEMP 36.3; O2SAT 99; BMI 26.7
[2023-10-14 02:33] VITALS: BP 121/89; PULSE 75; RESP 18; O2SAT 99
[2023-10-14] MEDS: Acetaminophen 325 MG TABLET 975 MG PO (03:30)
--- NOTE | 2023-10-14 04:18 | ED.GENADULT ---
HPI - General Adult General Chief complaint: General Medical Stated complaint: blood pressure high Time Seen by Provider: 10/14/23 04:18 History of Present Illness HPI narrative: Patient is a 33-year-old male who recently had right knee surgery an ACL tear last month on September 16. He has been wearing a knee brace since then. He reports that he recently lost his job. He says that between having the knee surgery, losing his job, and managing the children in his family he has been feeling under a lot of stress. His mother has flown up from [place] to help him out while he is recovering from his knee surgery. Today he had a headache. He does not ordinarily get headaches. He checked his blood pressure and thought it was somewhat high and his mother encouraged him to come to the emergency room. His headache has since resolved spontaneously. Related Data Home Medications Medication Instructions Recorded Confirmed omega-3 fatty acids-vitamin E 1 cap PO DAILY 09/16/23 09/16/23 1,000 mg capsule Previous Rx's Medication Instructions Recorded morphine 15 mg tablet,extended 15 mg PO Q12H 3 days #6 tabs 09/11/23 release (MS Contin) oxycodone-acetaminophen 5 mg-325 1 tab PO Q6H PRN pain 7 days #28 09/28/23 mg tablet (Percocet) tabs Allergies Allergy/AdvReac Type Severity Reaction Status Date / Time No Known Allergies Allergy Verified 09/22/23 13:25 [No Known Allergies*] Review of Systems Review of Systems: Yes all other systems are reviewed and are negative PMFSH Past Medical History Medical History History of cardiac murmur as a child Lumbar pain Physical exam Chronic GERD Umbilical hernia Overweight (BMI 25.0-29.9) Right knee pain Surgical History No pertinent past surgical history Family History Family History Mother Breast cancer Father Essential (primary) hypertension Diabetes mellitus Social History Social History Housing: Apartment Alcohol intake: current Alcohol intake frequency: holidays/special occasions only Alcohol type: beer and wine Patient Tobacco Use Status: Former Tobacco user Tobacco use type: Cigarette Smoked in Last 30 Days: No e-Cigarette/Vaping Use: Never Used Second Hand Smoke Exposure: No Use of substances other than those prescribed or required for medical reasons: No Advance Directives: No Advance Directives Information Provided: No service: No Current occupational status: employed 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 He has a DonJoy knee brace on his right leg. Otherwise he looks well. He does not seem ill or uncomfortable in any way. HENMT Other: The face is symmetrical. ?Mucous membranes moist. Eyes Other: Pupils are round equal, conjunctivae are clear, extraocular movements intact Neck Other: No cervical adenopathy. The neck is entirely supple. Resp Effort & Inspection: normal respiratory effort Auscultation: clear to auscultation bilaterally Cardio Rate: regular rate Rhythm: regular rhythm Heart sounds: S1 normal heart sound present and S2 normal heart sound present Skin Other: Skin is warm, dry, unremarkable Neuro Other: The patient is awake, alert, oriented, appropriate. Cognition is normal. Cranial nerves are intact. He moves his extremities normally except for his right leg which is in a knee brace. He seems completely neurologically intact and nontoxic. Extrem Other: The patient's right leg has a DonJoy knee brace. No ankle edema. Psych Other: The patient admits to being under stress but is well groomed, makes good eye contact, and denies suicidality. Medications Administered Discontinued Medications Generic Name Dose Route Start Last Admin Trade Name Freq PRN Reason Stop Dose Admin Acetaminophen 975 mg 10/14/23 03:02 10/14/23 03:30 Acetaminophen 325 Mg Tablet PO 10/14/23 03:03 975 mg ONCE ONE Administration Medical Decision Making Medical Decision Making MDM Narrative: The patient is a 33-year-old male who seems to have a number of life stressors currently. He is lost his job. He had recent right knee surgery. He has small children. The patient presented with a headache which resolved in the emergency room. He looks quite well. He was reassured. I do not think this headache requires any investigation. The patient will be advised to follow up with his regular doctor. Discharge Plan Discharge Clinical Impression: Headache Patient Disposition: Home, Self-Care Additional Instructions: You may use ibuprofen and/or acetaminophen as needed for headache. Please contact your regular doctor to make a follow-up appointment to discuss how you are doing further. Return to the emergency room if significantly worse. Prescriptions: No Action morphine [MS Contin] 15 mg tablet extended release 15 mg PO Q12H 3 Days Qty: 6 0RF Rx Instructions: Partial Fill upon patient request. oxycodone-acetaminophen [Percocet] 5-325 mg tablet 1 tab PO Q6H PRN (Reason: pain) 7 Days Qty: 28 0RF Rx Instructions: Partial Fill upon patient request. omega-3 fatty acids-vitamin E 1,000 mg Capsule 1 cap PO DAILY Referrals: Daphne Lopez MD [Primary Care Provider] - (Headache, concerned about possible high blood pressure) Interventions: ED Discharge Assessment Last Done: 10/14/23 05:06 Discharge Date/Time: 10/14/23 05:07
== END 2023-10-14 05:07 | disposition home or self-care (01) ==
PROVIDERS: Emergency Provider Emergency Medicine; PCP Internal Medicine
DX: R51.9 Headache, unspecified (principal)
CPT/HCPCS: 99283; 99284

== ENCOUNTER 2023-10-16 11:40 | Outpatient (AMB) | payer OTHER, SELFPAY ==
--- NOTE | 2023-10-16 11:52 | MHC.OFFVIS ---
Intake Vital Signs 10/16/23 11:53 Height 5 ft 7 in Weight 170 lb BMI 26.6 Intake Visit Reasons: PO-Rt ACL 09/16/23 NE-book with NE Intake Note: Jhonatan is a 33 year old male who presents today for a post operative appointmet s/p Right ACL 09/16/2023. He has started PT and is doing well at this time with no concerns Allergies No Known Allergies [No Known Allergies*] Allergy (Verified 09/22/23 13:25) HPI PO-Rt ACL 09/16/23 NE-book with NE HPI Details Jhonatan is a 33 year old man who returns ~1 month S/P right ACL reconstruction. He says he is doing well a this time. He has started PT and says this is going well. [facility] Medical History History of cardiac murmur as a child Lumbar pain Physical exam Chronic GERD Umbilical hernia Overweight (BMI 25.0-29.9) Right knee pain Surgical History No pertinent past surgical history Family History Mother Breast cancer Father Essential (primary) hypertension Diabetes mellitus Social History Housing: Apartment Alcohol intake: current Alcohol intake frequency: holidays/special occasions only Alcohol type: beer and wine Patient Tobacco Use Status: Former Tobacco user Tobacco use type: Cigarette e-Cigarette/Vaping Use: Never Used Second Hand Smoke Exposure: No service: No Current occupational status: employed 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 Current occupational exposures/hazards: No Cognitive needs: No Hearing needs: No Vision needs: No Review of Systems Const All systems reviewed & are unremarkable except as noted in HPI and below Physical Exam Vital Signs: BMI result Body Mass Index 26.6 Const General: no acute distress, alert and awake Orientation/consciousness: patient oriented x3 HEENT Head: Yes normocephalic and Yes atraumatic Eyes EOM: EOMs intact bilaterally Resp Effort & Inspection: normal respiratory effort and able to speak in complete sentences Cardio Jugular venous distension: no JVD Skin General skin exam: turgor normal Rashes: no rashes Neuro General: patient oriented x3 Extrem Other: inc c/d/i 0-90 rom Psych Appearance: grossly normal Affect: normal affect Attitude: cooperative Assessment & Plan Assessment & Plan (1) 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
[2023-10-16 11:53] VITALS: BMI 26.6
== END 2023-10-16 12:22 | disposition home or self-care (01) ==
PROVIDERS: PCP Internal Medicine; Visit Provider Orthopaedic Surgery
DX: M23.51 Chronic instability of knee, right knee (principal); Z98.890 Other specified postprocedural states; S83.249A Other tear of medial meniscus, current injury, unspecified knee, initial encounter
CPT/HCPCS: 99024

== ENCOUNTER → 2023-10-16 11:40 | Outpatient (BNVA) | payer OTHER, SELFPAY | PROVIDERS: PCP Internal Medicine; Visit Provider Orthopaedic Surgery | DX: S83.249D Other tear of medial meniscus, current injury, unspecified knee, subsequent encounter (principal); M23.51 Chronic instability of knee, right knee; Z98.890 Other specified postprocedural states | CPT/HCPCS: 99212 ==

== ENCOUNTER 2023-11-11 12:20 | Outpatient (AMB) | payer OTHER, SELFPAY ==
--- NOTE | 2023-11-11 12:42 | A.OFFPC_ITS ---
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 Accompanied by: Self / Same As Patient Allergies No Known Allergies [No Known Allergies*] Allergy (Verified 11/11/23 12:56) Medication List - Last Reconciled 11/11/23 by Daphne Perdomo MD omega-3 fatty acids-vitamin E 1,000 mg 1 cap PO DAILY oxycodone-acetaminophen 5-325 mg (Percocet) 1 tab PO Q12H PRN 7 days Tobacco use date assessed: 11/11/23 Dental Screening Dental Screen Date: 11/11/23 Did you have a dental visit in the last 12 months?: No Did you have a dental problem in the last 6 months where you did not have access to dental care?: No Was dental information given to patient?: Patient has dentist HPI HPI Comments History of Present Illness Details This is a 33-year-old male with hypertension and chronic GERD that comes today for follow-up on his conditions. He has been checking his blood pressure at home and usually ranges from 140/90 to 150/90. I will start him on hydrochlorothiazide. Denies any chest pain or shortness of breath. Had headaches in the past associated with elevated blood pressure. Also complains of heartburn due to GERD and I will start him on omeprazole as needed. [facility] Medical History (Updated 11/11/23 @ 13:04 by Daphne Perdomo MD) History of cardiac murmur as a child Lumbar pain Physical exam Chronic GERD Umbilical hernia Overweight (BMI 25.0-29.9) Right knee pain Surgical History Medial meniscus tear Family History Mother Breast cancer Father Essential (primary) hypertension Diabetes mellitus Social History Housing: Apartment Alcohol intake: current Alcohol intake frequency: holidays/special occasions only Alcohol type: beer and wine Patient Tobacco Use Status: Former Tobacco user Tobacco use type: Cigarette e-Cigarette/Vaping Use: Never Used Second Hand Smoke Exposure: No service: No Current occupational status: unemployed 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 1. Little interest or pleasure in doing things: not at all 2. Feeling down, depressed, or hopeless: not at all 3. Trouble falling or staying asleep, or sleeping too much: not at all 4. Feeling tired or having little energy: not at all 5. Poor appetite or overeating: not at all 6. Feeling bad about yourself - or that you are a failure or have let yourself or your family down: not at all 7. Trouble concentrating on things, such as reading the newspaper or watching television: not at all 8. Moving or speaking so slowly that other people could have noticed. Or the opposite - being so fidgety or restless that you have been moving around a lot more than usual: not at all 9. Thoughts that you would be better off or of hurting yourself in some way: not at all Total score: 0 Depression Screening Interpretation: Negative Depression Screening Done: Yes 49487 - PHQ-9 Billing: Yes Source: Developed by Drs. Murphy Avelar, Jimena Humphries, Dre Altamirano and colleagues, with an educational kaylen from [employer]. Thrive Questionnaire Date Thrive assessed: 11/11/23 I am a: Patient What is your living situation today?: I have a steady place to live Within the past 12 months, did the food you bought not last and you didn't have the money to get more?: Never true Within the past 12 months, did you worry whether your food would run out before you got money to buy more?: Never true Do you have trouble paying for medicines?: No Do you have trouble getting transportation to medical appointments?: No Do you have trouble paying your heating and electricity bill?: No Do you have trouble taking care of your child, family member or friend?: No Do you have trouble with day-to-day activities such as bathing, preparing meals, shopping, managing finances, etc.?: No Are you currently unemployed and looking for a job?: No Are you interested in more education?: No Please select the resources that you would like help with: None Currently or been in a relationship where the following occur: no concerns reported THRIVE Score: 0 AUDIT C Alcohol Use Questionnaire (AUDIT-C) 1. How often do you have a drink containing alcohol?: Monthly or less 2. How many drinks containing alcohol do you have on a typical day when you are drinking?: 1 or 2 3. How often do you have six or more drinks on one occasion?: Never Total Score: 1 Score Reviewed/Action Taken: No KATE-7 AMB Questionnaire KATE-7 Date KATE - 7 assessed: 11/11/23 Feeling nervous, anxious, or on edge: 0 = Not at all Not being able to stop or control worryin = Not at all Worrying too much about different things: 0 = Not at all Trouble relaxin = Not at all Being so restless that it is hard to sit still: 0 = Not at all Becoming easily annoyed or irritable: 0 = Not at all Feeling afraid as if something awful might happen: 0 = Not at all Total KATE-7 score (0-4 normal; 5-9 mild; 10-14 moderate; 15-21 severe): 0 Source: Developed by Drs. Murphy Avelar, Jimena Humphries, Dre Altamirano and colleagues, with an educational kaylen from [employer]. KATE-7 Assessment Billing KATE-7 Assessment Tool: KATE-7 Assessment 98892 Review of Systems Const All systems reviewed & are unremarkable except as noted in HPI and below Eyes Reports no additional complaints, Denies change in vision and Denies other visual disturbances Card Denies chest pain at rest, Denies chest pain with activity, Denies edema, Denies irregular heart rhythm, Denies claudication, Denies dyspnea, Denies dyspnea on exertion, Denies orthopnea, Denies paroxysmal nocturnal dyspnea and Denies slow heart rate Resp Denies cough, Denies dyspnea and Denies dyspnea on exertion GI Denies abdominal pain, Denies change in bowel habits, Denies excessive flatus, Denies nausea and Denies vomiting Denies urinary hesitancy, Denies urinary incontinence and Denies urinary urgency Musc Denies abnormal gait, Denies atrophy, Denies deformity and Denies limited range of motion Skin/Breast Denies bleeding lesions, Denies changing lesions and Denies rash Neuro Denies abnormal gait, Denies behavioral changes and Denies lack of coordination Psych Denies behavioral changes Physical exam (Primary Care) Vital Signs: Last Vital Signs BP 132/90 H 11/11/23 12:44 BMI result Body Mass Index 25.8 Tobacco/Smoking Status: Tobacco use Status Tobacco use date assessed 11/11/23 11/11/23 12:50 Patient Tobacco Use Status Former Tobacco user 11/11/23 12:50 Tobacco use type Cigarette 11/11/23 12:50 e-Cigarette/Vaping Use Never Used 11/11/23 12:50 PHQ-9: PHQ-9 Score PHQ-9: Total score 0 11/11/23 13:01 Depression Screening Interpretation: Negative Thrive Assessment: Date of Thrive Assessment Date Thrive assessed 11/11/23 11/11/23 12:50 Currently or been in a relationship where the following occur: no concerns reported Eyes General: appearance normal, both eyes and all related structures Eyelids: Yes eyelids normal Conjunctivae: conjunctivae normal Neck Neck: Yes normal visual inspection and Yes supple Resp Effort & Inspection: normal respiratory effort Auscultation: clear to auscultation bilaterally Cardio Jugular venous distension: no JVD Rate: regular rate Rhythm: regular rhythm Heart sounds: S1 normal heart sound present and S2 normal heart sound present Extrem General: Yes full ROM Assessment and Plan Assessment & Plan (1) Essential hypertension: Code(s): I10 - Essential (primary) hypertension Plan: Continue hydrochlorothiazide. Blood pressure goal is equal or less than 130/80. (2) Chronic GERD: Code(s): K21.9 - Gastro-esophageal reflux disease without esophagitis Plan: Continue PPIs as needed. Orders: Orders Lipid Panel Today E78.5 - Hyperlipidemia, unspecified, I10 - Essential (primary) hypertension Comprehensive [place]. Panel Fast Today I10 - Essential (primary) hypertension [place] upper GI series Today K21.9 - Gastro-esophageal reflux disease without esophagitis Medications: New hydrochlorothiazide 12.5 mg PO DAILY 90 tabs 1RF 90 days I10 - Essential (primary) hypertension omeprazole 20 mg PO DAILY 90 caps 1RF 90 days K21.9 - Gastro-esophageal reflux disease without esophagitis Coding Level of Care Code Est Pt Level 3 (94717) Diagnoses Essential hypertension I10 Chronic GERD K21.9 Additional Codes KATE-7 Assessment Billing - KATE-7 Assessment Tool: KATE-7 Assessment 37646 ([id number]) Time Spent (min) 19
[2023-11-11 12:44] VITALS: BP 132/90; BMI 25.8
== END 2023-11-11 13:07 | disposition home or self-care (01) ==
PROVIDERS: PCP Internal Medicine; Visit Provider Internal Medicine
DX: I10 Essential (primary) hypertension (principal); K21.9 Gastro-esophageal reflux disease without esophagitis
CPT/HCPCS: 99213

== ENCOUNTER 2023-11-16 11:02 | Outpatient (REF) | payer OTHER, SELFPAY ==
[2023-11-16 12:50] LABS: Alanine Aminotransferase 29 U/L (0-40); Albumin Level 4.3 g/dL (3.5-5.0); Alkaline Phosphatase 61 U/L (39-117); Anion Gap 12 (12-20); Aspartate Amino Transferase 15 U/L (5-37); Bilirubin Total 0.4 mg/dL (0.0-1.0); Blood Urea Nitrogen 12 mg/dL (9-16); Calcium 9.6 mg/dL (8.4-10.2); Carbon Dioxide 28 mmol/L (22-29); Chloride 106 mmol/L (96-108); Cholesterol 201 mg/dL (<200); Estimated Glomerular Filt Rate > 60; Glucose Fasting 93 mg/dL (60-99); HDL Cholesterol 52 mg/dL (>40); LDL Cholesterol Calculated 134 mg/dL (<100); Potassium 3.9 mmol/L (3.3-5.1); Sodium 142 mmol/L (135-145); Total Protein 7.3 g/dL (6.5-8.0); Triglycerides 78 mg/dL (<150)
== END 2023-11-16 11:03 | disposition home or self-care (01) ==
LOC: HO.LAB 11:02
PROVIDERS: PCP Internal Medicine; Visit Provider Internal Medicine
DX: Z00.00 Encounter for general adult medical examination without abnormal findings (principal); I10 Essential (primary) hypertension; E78.5 Hyperlipidemia, unspecified
CPT/HCPCS: 36415; 80053; 80061

== ENCOUNTER 2023-11-27 12:00 | Outpatient (AMB) | payer OTHER, SELFPAY ==
--- NOTE | 2023-11-27 12:11 | A.OFFVIS_ITS ---
Intake Vital Signs 11/27/23 12:12 Height 5 ft 7 in Weight 165 lb BMI 25.8 Intake Visit Reasons: PO-Rt ACL 09/16/23 NE-book with NE Intake Note: Sylvia is a 79 year old female who presents today for a follow up of her left knee contusion after falling on 10/13/23. She was last seen with Zo who recommended activity modification. She would like an injection today. Allergies No Known Allergies [No Known Allergies*] Allergy (Verified 11/11/23 12:56) HPI PO-Rt ACL 09/16/23 NE-book with NE HPI Details 6 weeks s/p right ACL recon with MMR. He is doign well with mild pain and working with PT [facility] Medical History History of cardiac murmur as a child Lumbar pain Physical exam Chronic GERD Umbilical hernia Overweight (BMI 25.0-29.9) Right knee pain Surgical History Medial meniscus tear Family History Mother Breast cancer Father Essential (primary) hypertension Diabetes mellitus Social History Housing: Apartment Alcohol intake: current Alcohol intake frequency: holidays/special occasions only Alcohol type: beer and wine Patient Tobacco Use Status: Former Tobacco user Tobacco use type: Cigarette e-Cigarette/Vaping Use: Never Used Second Hand Smoke Exposure: No service: No Current occupational status: unemployed 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 May progress flexion with PT. No work. F/u 6 weeks (2) Status post medial meniscus repair: Code(s): Z98.890 - Other specified postprocedural states Plan: pr protocol Coding Level of Care Code Global (93411) Diagnoses S/P ACL reconstruction Z98.890 Status post medial meniscus repair Z98.890
[2023-11-27 12:12] VITALS: BMI 25.8
== END 2023-11-27 12:41 | disposition home or self-care (01) ==
PROVIDERS: PCP Internal Medicine; Visit Provider Orthopaedic Surgery
DX: Z98.890 Other specified postprocedural states (principal)
CPT/HCPCS: 99024

== ENCOUNTER → 2023-11-27 12:00 | Outpatient (BNVA) | payer OTHER, SELFPAY | PROVIDERS: PCP Internal Medicine; Visit Provider Orthopaedic Surgery | DX: Z47.89 Encounter for other orthopedic aftercare (principal) | CPT/HCPCS: 99212 ==

== ENCOUNTER 2023-12-14 15:00 | Outpatient (RCR) | payer OTHER, SELFPAY ==
--- NOTE | 2023-09-25 09:34 | MHC.PT.EP ---
[facility] [place] Office [place] Office [place] Office [address] [phone] F: [phone] F: [phone] F: [phone] F: [phone] Physical Therapy Plan of Care Date of Evaluation: 09/24/23 Date of Surgery: 09/16/2023 Diagnosis: s/p RIGHT ACL repair medial meniscus repair (DOS: 09/16/2023) Assessment: Patient is a pleasant 33 y.o. male who is referred to PT by Stephy Sexton PA-C, with Dx of RIGHT ACL repair and medial meniscus repair. Patient impairments include pain, swelling, limited ROM, weakness, gait deviations. Patient current functional limitations are walking, standing, stairs, bending, bathing/showering. Patient will benefit from skilled PT to address aforementioned impairments and functional limitations to meet established goals. Frequency and Duration: The patient will be seen 2x/week for 8 weeks Short Term Goals: 4 weeks Patient demonstrates consistency and independence with HEP to self manage symptoms. Patient is able to ambulate with LRAD step through gait pattern with brace appropriately locked until he is cleared for discontinuation when quad strength allows. 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 Patient presents with increaed RIGHT quad strength 4+/5 to be able to ascend/descend stairs reciprocally for home. [ End ] Treatment Plan: Modalities to reduce pain, spasms and effusion. Manual therapy to restore motion and function. Therapeutic exercise to improve strength and flexibility. Neuromuscular re-education for posture and balance. Therapeutic activities to return to functional activities of daily living. Electronically signed by: Deirdre Quan, PT, DPT Please sign and return to therapist. Thank you for your referral.
--- NOTE | 2023-12-14 17:02 | MHC.PT.EP ---
[facility] [place] [address] [phone] F: [phone] F: [phone] F: [phone] F: [phone] Physical Therapy Plan of Care Date of Evaluation: 09/24/23 Date of Surgery: 09/16/2023 Diagnosis: s/p RIGHT ACL repair medial meniscus repair (DOS: 09/16/2023) Assessment: Patient is a pleasant 33 y.o. male who is referred to PT by Stephy Sexton PA-C, with Dx of RIGHT ACL repair and medial meniscus repair. Patient impairments include pain, swelling, limited ROM, weakness, gait deviations. Patient current functional limitations are walking, standing, stairs, bending, bathing/showering. Patient will benefit from skilled PT to address aforementioned impairments and functional limitations to meet established goals. Frequency and Duration: The patient will be seen 2x/week for 8 weeks Short Term Goals: STG's Met Halfway Goals: 8 weeks Patient presents with increased RIGHT knee flexion 120 degrees to be able to perform sit to stand. NOT MET Patient presents with increaed RIGHT quad strength 4+/5 to be able to ascend/descend stairs reciprocally for home. MET [ End ] Treatment Plan: Modalities to reduce pain, spasms and effusion. Manual therapy to restore motion and function. Therapeutic exercise to improve strength and flexibility. Neuromuscular re-education for posture and balance. Therapeutic activities to return to functional activities of daily living. Electronically signed by: Deirdre Quan, PT, DPT Please sign and return to therapist. Thank you for your referral.
== END 2023-12-14 17:02 | disposition home or self-care (01) ==
LOC: HO.PT 15:00
PROVIDERS: PCP Internal Medicine; Visit Provider Physician Assistant
DX: M23.51 Chronic instability of knee, right knee (principal)
CPT/HCPCS: 97014; 97110; 97112; 97116; 97140; 97161; 97530

== ENCOUNTER 2024-01-08 10:49 | Outpatient (AMB) | payer OTHER, SELFPAY ==
--- NOTE | 2024-01-08 11:53 | A.OFFVIS_ITS ---
Intake Visit Reasons: ov-Rt ACL 09/16/23 NE Intake Note: Jhonatan is a 33 year old male who presents today for a follow up appointment s/p Right ACL 09/16/2023. Patient reports that he is doing well he continues to exercises at home. He has some residual pain on the medial aspect of the knee. Allergies No Known Allergies [No Known Allergies*] Allergy (Verified 11/11/23 12:56) HPI HPI ov-Rt ACL 09/16/23 NE: Details: Jhonatan is a 33 year old male who presents today for a follow up appointment s/p Right ACL 09/16/2023 and MMR. Patient reports that he is doing well he continues to exercises at home. He has some residual pain on the medial aspect of the knee. [facility] Medical History History of cardiac murmur as a child Lumbar pain Physical exam Chronic GERD Umbilical hernia Overweight (BMI 25.0-29.9) Right knee pain Surgical History Medial meniscus tear Family History Mother Breast cancer Father Essential (primary) hypertension Diabetes mellitus Social History Housing: Apartment Alcohol intake: current Alcohol intake frequency: holidays/special occasions only Alcohol type: beer and wine Patient Tobacco Use Status: Former Tobacco user Tobacco use type: Cigarette e-Cigarette/Vaping Use: Never Used Second Hand Smoke Exposure: No service: No Current occupational status: unemployed 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 Current occupational exposures/hazards: No Cognitive needs: No Hearing needs: No Vision needs: No Physical Exam Extrem Other: stable lachaman no effusion 0-115 Assessment & Plan Assessment & Plan (1) Status post medial meniscus repair: Code(s): Z98.890 - Other specified postprocedural states Category: Surgical Plan: PT to improve flexion (2) S/P ACL reconstruction: Code(s): Z98.890 - Other specified postprocedural states Category: Surgical Plan: Continue HEP f/u 6 weeks Orders: Orders PT Evaluation and Treatment Today Z98.890 - Other specified postprocedural states Coding Level of Care Code Est Pt Level 3 (68692) Diagnoses Status post medial meniscus repair Z98.890 S/P ACL reconstruction Z98.890
== END 2024-01-08 12:12 | disposition home or self-care (01) ==
PROVIDERS: PCP Internal Medicine; Visit Provider Orthopaedic Surgery
DX: S83.511D Sprain of anterior cruciate ligament of right knee, subsequent encounter (principal)
CPT/HCPCS: 99213

== ENCOUNTER → 2024-01-08 10:49 | Outpatient (BNVA) | payer OTHER, SELFPAY | PROVIDERS: PCP Internal Medicine; Visit Provider Orthopaedic Surgery | DX: Z47.89 Encounter for other orthopedic aftercare (principal) | CPT/HCPCS: 99212 ==

== ENCOUNTER 2024-02-23 11:00 | Outpatient (RCR) | payer OTHER, SELFPAY ==
--- NOTE | 2024-02-03 15:55 | MHC.PT.EP ---
[facility] [place] Office [place] Office [place] Office [address] [phone] F: [phone] F: [phone] F: [phone] F: [phone] Physical Therapy Plan of Care Date of Evaluation: 02/03/24 Date of Surgery: 09/16/23 Diagnosis: S/P ACL REPAIR 09/16/23 (NE) Assessment: MAYA IS A PLEASANT 33 YO MALE WHO RETURNS FOR THERAPY AFTER MD FOLLOW UP WITH NE. HE RPORTS HE CONTS TO HAVE PAIN WITH WALKING ANTERIOLATERAL KNEE. HE HAS BEEN PERFORMING HEP AT HOME BUT HAS NOT YET BEEN CLEARED TO RETURN TO WORK BY MD. HE STATES HE WOULD LIKE TO GET BACK TO RUNNING AND PLAYING WITH HIS CHILDREN. UPON EXAM HE DEMONSTRATES A LACK OF FULL KNEE EXTENSION AND DECREASED JOINT MOBILITY, DECREASE HIP STRENGTH, ALTERED GAIT PATTERN AND DECREASED SOFT TISSUE MOBILITY WITH INCREASED PAIN. FUNCTIONAL LIMITATIONS INCLUDE DECREASED ABILITY TO PERFORM AMBULATION FOR LONG PERIODS, INABILITY TO RUN, DECREASED TOLERANCE TO PERFORM LIGHT SPORT ACTIVITIES, DECREASED PARTICIPATION IN RECREATIONAL AND FITNESS ACTIVITIES. Frequency and Duration: The patient will be seen 2 X WEEK FOR 4 WEEKS Short Term Goals: REVIEW AND PROGRESS PREVIOUS [facility] Legal Records Manager Goals: PAIN LESS THAN 2/10 TO ALLOW FOR RETURN TO LIGHT RUNNING WITH CHILDREN FULL MUSCULAR ROM AND JOINT MOBILITY AT KNEE TO PROMOTE NORMALIZED GAIT PATTERN FULL LE STRENGTH EQUAL SANGITA TO PERFORM FULL FUNCTIONAL SQUAT RETURN TO FITNESS PROGRAM WITH INDEPENDENCE Treatment Plan: Modalities to reduce pain, spasms and effusion. Manual therapy to restore motion and function. Therapeutic exercise to improve strength and flexibility. Neuromuscular re-education for posture and balance. Therapeutic activities to return to functional activities of daily living. Electronically signed by: GENESIS HERNANDEZ PT DPT Please sign and return to therapist. Thank you for your referral.
== END 2024-03-30 10:12 | disposition home or self-care (01) ==
LOC: HO.PT 11:00
PROVIDERS: PCP Internal Medicine; Visit Provider Orthopaedic Surgery
DX: Z98.890 Other specified postprocedural states (principal)
CPT/HCPCS: 97110; 97140; 97161; 97530; 97535

== ENCOUNTER 2024-06-03 11:18 | Outpatient (AMB) | payer OTHER, SELFPAY ==
[2024-06-03 11:25] VITALS: BMI 25.8
--- NOTE | 2024-06-03 11:25 | A.OFFVIS_ITS ---
Vital Signs 06/03/24 11:25 Height 5 ft 7 in Weight 165 lb BMI 25.8 Intake Visit Reasons: OV- RT Knee pain, fell on it, had surgery on it Intake Note: Jhonatan is a 33 year old female who presents today for a follow up of his Right knee S/P ACL repair and Medial Meniscus Repair 09/16/2023. Patient reports that he took a fall recently. Allergies No Known Allergies [No Known Allergies*] Allergy (Verified 06/03/24 11:25) HPI HPI OV- RT Knee pain, fell on it, had surgery on it: Details: Jhonatan is a 33 year old female who presents today for a follow up of his Right knee S/P ACL repair and Medial Meniscus Repair 09/16/2023. Patient reports that mary lewis took a fall recently. He was going down into his basement and slipped and fell down the stairs and developed right knee swelling afterward. States his knee feels okay and a little stiff after his fall but he has not noticed any significant other changes. He has been working and has let his physical therapy exercises go a little bit [facility] Medical History History of cardiac murmur as a child Lumbar pain Physical exam Chronic GERD Umbilical hernia Overweight (BMI 25.0-29.9) Right knee pain Surgical History Medial meniscus tear Family History Mother Breast cancer Father Essential (primary) hypertension Diabetes mellitus Social History Housing: Apartment Alcohol intake: current Alcohol intake frequency: holidays/special occasions only Alcohol type: beer and wine Patient Tobacco Use Status: Former Tobacco user Tobacco use type: Cigarette e-Cigarette/Vaping Use: Never Used Second Hand Smoke Exposure: No service: No Current occupational status: unemployed 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 No effusion and stable Kory's/anterior drawer with firm endpoint Assessment & Plan Assessment & Plan (1) S/P ACL reconstruction: Code(s): Z98.890 - Other specified postprocedural states Category: Surgical Plan: Jhonatan is a 33-year-old gentleman status post ACL reconstruction with meniscus repair. ACL is stable and he does not have any signs or symptoms of meniscal damage but he is a little stiff I recommend he return to physical therapy and work on dynamic strengthening. (2) Status post medial meniscus repair: Code(s): Z98.890 - Other specified postprocedural states Category: Surgical Plan: Orders: Orders PT Evaluation and Treatment Today Z98.890 - Other specified postprocedural states Coding Level of Care Code Est Pt Level 3 (72135) Diagnoses S/P ACL reconstruction Z98.890 Status post medial meniscus repair Z98.890
== END 2024-06-03 11:38 | disposition home or self-care (01) ==
PROVIDERS: PCP Internal Medicine; Visit Provider Orthopaedic Surgery
DX: S83.511D Sprain of anterior cruciate ligament of right knee, subsequent encounter (principal)
CPT/HCPCS: 99213

== ENCOUNTER → 2024-06-03 11:18 | Outpatient (BNVA) | payer OTHER, SELFPAY | PROVIDERS: PCP Internal Medicine; Visit Provider Orthopaedic Surgery | DX: Z91.81 History of falling (principal); Z98.890 Other specified postprocedural states | CPT/HCPCS: 99212 ==

== ENCOUNTER 2024-07-04 14:59 | Outpatient (AMB) | payer OTHER, SELFPAY ==
[2024-07-04 15:10] VITALS: BP 130/82; BMI 26.5
--- NOTE | 2024-07-04 15:10 | MHC.PC.OV ---
Vital Signs 07/04/24 15:10 Height 5 ft 7 in Weight 169 lb BMI 26.5 BP 130/82 Blood Pressure Location Lt brachial Position Sitting Intake Visit Reasons: annual exam Intake Note: Patient here for an annual physical exam, c/o small lump on cheek Submersible Pilot Required: No Accompanied by: Self / Same As Patient Allergies No Known Allergies [No Known Allergies*] Allergy (Verified 07/04/24 15:22) Medication List - Last Reconciled 07/04/24 by Daphne Perdomo MD omeprazole 20 mg PO DAILY 90 days Tobacco use date assessed: 11/11/23 Dental Screening Dental Screen Date: 07/04/24 Did you have a dental visit in the last 12 months?: Yes Did you have a dental problem in the last 6 months where you did not have access to dental care?: No Was dental information given to patient?: Patient has dentist HPI HPI Comments History of Present Illness Details This is a 33-year-old male that comes for his physical exam. No chest pain or shortness on breath. Complains of a skin lesion in left cheek that has been present for over a year. Also has left rib pain that started about a week ago while he was doing a twisting movement. [facility] Medical History (Updated 07/04/24 @ 15:27 by Daphne Perdomo MD) History of cardiac murmur as a child Lumbar pain Physical exam Chronic GERD Umbilical hernia Overweight (BMI 25.0-29.9) Right knee pain Surgical History Medial meniscus tear Family History Mother Breast cancer Father Essential (primary) hypertension Diabetes mellitus Social History Housing: Apartment Alcohol intake: current Alcohol intake frequency: holidays/special occasions only Alcohol type: beer and wine Patient Tobacco Use Status: Former Tobacco user Tobacco use type: Cigarette e-Cigarette/Vaping Use: Never Used Second Hand Smoke Exposure: No service: No Current occupational status: employed 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 1. Little interest or pleasure in doing things: not at all 2. Feeling down, depressed, or hopeless: not at all 3. Trouble falling or staying asleep, or sleeping too much: not at all 4. Feeling tired or having little energy: not at all 5. Poor appetite or overeating: not at all 6. Feeling bad about yourself - or that you are a failure or have let yourself or your family down: not at all 7. Trouble concentrating on things, such as reading the newspaper or watching television: not at all 8. Moving or speaking so slowly that other people could have noticed. Or the opposite - being so fidgety or restless that you have been moving around a lot more than usual: not at all 9. Thoughts that you would be better off or of hurting yourself in some way: not at all Total score: 0 Depression Screening Interpretation: Negative Depression Screening Done: Yes 65102 - PHQ-9 Billing: Yes Source: Developed by Drs. Murphy Avelar, Jimena Humphries, Dre Altamirano and colleagues, with an educational kaylen from [employer]. Thrive Questionnaire Date Thrive assessed: 11/11/23 I am a: Patient What is your living situation today?: I have a steady place to live Within the past 12 months, did the food you bought not last and you didn't have the money to get more?: Never true Within the past 12 months, did you worry whether your food would run out before you got money to buy more?: Never true Do you have trouble paying for medicines?: No Do you have trouble getting transportation to medical appointments?: No Do you have trouble paying your heating and electricity bill?: No Do you have trouble taking care of your child, family member or friend?: No Do you have trouble with day-to-day activities such as bathing, preparing meals, shopping, managing finances, etc.?: No Are you currently unemployed and looking for a job?: No Are you interested in more education?: No Please select the resources that you would like help with: None Currently or been in a relationship where the following occur: No concerns reported THRIVE Score: 0 AUDIT C Alcohol Use Questionnaire (AUDIT-C) 1. How often do you have a drink containing alcohol?: Monthly or less 2. How many drinks containing alcohol do you have on a typical day when you are drinking?: 1 or 2 3. How often do you have six or more drinks on one occasion?: Never Total Score: 1 Score Reviewed/Action Taken: No KATE-7 AMB Questionnaire KATE-7 Date KATE - 7 assessed: 07/04/24 Feeling nervous, anxious, or on edge: 0 = Not at all Not being able to stop or control worryin = Not at all Worrying too much about different things: 0 = Not at all Trouble relaxin = Not at all Being so restless that it is hard to sit still: 0 = Not at all Becoming easily annoyed or irritable: 0 = Not at all Feeling afraid as if something awful might happen: 0 = Not at all Total KATE-7 score (0-4 normal; 5-9 mild; 10-14 moderate; 15-21 severe): 0 Source: Developed by Drs. Murphy Avelar, Jimena Humphries, Dre Altamirano and colleagues, with an educational kaylen from [employer]. KATE-7 Assessment Billing KATE-7 Assessment Tool: KATE-7 Assessment 80140 Review of Systems Const All systems reviewed & are unremarkable except as noted in HPI and below Card Reports chest pain, Denies chest pain at rest, Denies chest pain with activity, Denies edema, Denies irregular heart rhythm, Denies claudication, Denies dyspnea, Denies dyspnea on exertion, Denies orthopnea, Denies paroxysmal nocturnal dyspnea and Denies slow heart rate Resp Denies cough, Denies dyspnea and Denies dyspnea on exertion Denies urinary hesitancy, Denies urinary incontinence and Denies urinary urgency Skin/Breast Reports lesions Physical exam (Primary Care) Vital Signs: Last Vital Signs BP 130/82 07/04/24 15:10 BMI result Body Mass Index 26.5 Tobacco/Smoking Status: Tobacco use Status Tobacco use date assessed 11/11/23 07/04/24 15:16 Patient Tobacco Use Status Former Tobacco user 07/04/24 15:16 Tobacco use type Cigarette 07/04/24 15:16 e-Cigarette/Vaping Use Never Used 07/04/24 15:16 PHQ-9: PHQ-9 Score PHQ-9: Total score 0 07/04/24 15:16 Depression Screening Interpretation: Negative Thrive Assessment: Date of Thrive Assessment Date Thrive assessed 11/11/23 07/04/24 15:16 Currently or been in a relationship where the following occur: No concerns reported HENPR Head: Yes normal to inspection, Yes normocephalic and Yes atraumatic Ears: external ears normal Eyes General: appearance normal, both eyes and all related structures Eyelids: Yes eyelids normal Conjunctivae: conjunctivae normal Neck Neck: Yes normal visual inspection and Yes supple Resp Effort & Inspection: normal respiratory effort Auscultation: clear to auscultation bilaterally Cardio Jugular venous distension: no JVD Rate: regular rate Rhythm: regular rhythm Heart sounds: S1 normal heart sound present and S2 normal heart sound present GI Inspection: Yes normal to inspection Palpation (GI): Soft to palpation and nontender Auscultation: normal bowel sounds Skin General skin exam: no rashes or lesions noted Lesions: lesion noted (left cheek lump) Neuro General: no focal motor deficits Extrem General: Yes full ROM Psych Appearance: grossly normal Office Procedures Flu Questionnaire Does the patient have a severe egg allergy?: No Immunizations Fluarix Triv [id number] (PF) 45 mcg (15 mcg x 3)/0.5 mL IM syringe Performing Provider: Daphne Perdomo MD [facility] Documented (not given) by: SANDEEP Roberts on 07/04/24 15:18 Reason Not Given: Patient Refused Coding Level of Care Code Est Pt Level 3 (16781) Est Pt Prev Care 18-39y(41092) Diagnoses Physical exam Z00.00 Rib pain on left side R07.81 Skin lesion L98.9 Additional Codes KATE-7 Assessment Billing - KATE-7 Assessment Tool: KATE-7 Assessment 06664 ([id number]) Time Spent (min) 32 Assessment & Plan Assessment & Plan (1) Physical exam: Code(s): Z00.00 - Encounter for general adult medical examination without abnormal findings Category: Medical Plan: Repeat in a year. (2) Rib pain on left side: Code(s): R07.81 - Pleurodynia Category: Medical Plan: X-ray ordered. (3) Skin lesion: Code(s): L98.9 - Disorder of the skin and subcutaneous tissue, unspecified Category: Medical Plan: Referred to Dermatology. Orders: Orders XR ribs LT 2V Today R07.81 - Pleurodynia Influenza [id number] Immunization Today Z23 - Encounter for immunization Referrals Dermatology Referral L98.9 - Disorder of the skin and subcutaneous tissue, unspecified
== END 2024-07-04 15:32 | disposition home or self-care (01) ==
LOC: HO.HMCH 15:00
PROVIDERS: PCP Internal Medicine; Visit Provider Internal Medicine
DX: Z00.00 Encounter for general adult medical examination without abnormal findings (principal); R07.81 Pleurodynia; L98.9 Disorder of the skin and subcutaneous tissue, unspecified

== ENCOUNTER 2024-07-04 14:59 | Outpatient (REF) | payer OTHER, SELFPAY ==
--- NOTE | ~2024-07-04 | XR_ITS ---
EXAMINATION: XR RIBS LEFT 4 VIEWS CLINICAL INFORMATION: Pleurodynia R07.81. COMPARISON: XR Chest 04/21/2022 TECHNIQUE: 4 views of the left ribs were obtained. FINDINGS: Lungs are clear. No consolidation, pneumothorax, or pleural effusion. The cardiomediastinal silhouette and pulmonary vasculature are normal. Osseous structures are unremarkable. Ribs are intact. No fractures are identified. XR/XR ribs LT min 3V w CXR1V IMPRESSION: No acute displaced rib fracture. Electronically signed by: Rigo Mccormick MD 08/30/2024 11:15 AM [facility]
== END 2024-07-04 15:00 | disposition home or self-care (01) ==
LOC: HO.XRAY 14:59
PROVIDERS: PCP Internal Medicine; Visit Provider Internal Medicine
DX: Z00.01 Encounter for general adult medical examination with abnormal findings (principal); R07.81 Pleurodynia; L98.9 Disorder of the skin and subcutaneous tissue, unspecified
CPT/HCPCS: 71101; 90471; 96127; 99212; 99395

== ENCOUNTER 2024-07-29 13:05 | Outpatient (REF) | payer OTHER, SELFPAY ==
[2024-07-29 17:39] LABS: Influenza A PCR NEGATIVE (Negative); Influenza B PCR NEGATIVE (Negative); Resp Syncy Virus RNA Qual PCR NEGATIVE (Negative); SARS COV2 PCR INHOUSE NEGATIVE (Negative)
== END 2024-07-29 13:06 | disposition home or self-care (01) ==
LOC: HO.LAB 13:05
PROVIDERS: PCP Internal Medicine; Visit Provider Physician Assistant
DX: J06.9 Acute upper respiratory infection, unspecified (principal); J01.00 Acute maxillary sinusitis, unspecified
CPT/HCPCS: 0241U; 99212

== ENCOUNTER 2024-07-29 13:05 | Outpatient (AMB) | payer OTHER, SELFPAY ==
[2024-07-29 13:08] VITALS: BP 130/80; PULSE 83; TEMP 36.7; O2SAT 98
--- NOTE | 2024-07-29 13:08 | MHC.OFFWIV ---
Intake Vital Signs 07/29/24 13:08 Height 5 ft 7 in BP 130/80 Blood Pressure Location Rt brachial Position Sitting Pulse 83 Pulse Source Pulse Oximeter Temp 98.1 F Temp Source Oral Pulse Oximetry (%) 98 Intake Visit Reasons: EP sinus congestion, ear pain/pressure Intake Note: pt is here for sinus congestion, ear pain and pressure, ongoing 1 week Patient Tobacco Use Status: Former Tobacco user Allergies No Known Allergies [No Known Allergies*] Allergy (Verified 07/29/24 13:10) Do you need a note to return to daycare/school/sports/work: No HPI HPI Comments History of Present Illness Details History of Present Illness The patient is a 34-year-old male presenting with sinus congestion, pressure in the ears and head, and sinus pain. These symptoms began approximately one week and a few days ago. The patient reports an absence of fever, shortness of breath, and wheezing. However, he experiences a significant amount of mucus production. No other members of the household are experiencing similar symptoms, and the patient has not been tested for COVID-19. The patient has been self-managing with vitamins and [id number] Sudafed, which he has found somewhat helpful. He has not utilized a neti pot or nasal corticosteroids such as Flonase. The patient describes the sensation in his head during sinus pressure as burak to electricity. He notes a mild cough, primarily in the mornings. The patient has no notable history of sinus infections or relevant medical or surgical history concerning the present illness. Lifestyle aspects include working night shifts, which may contribute to difficulty in obtaining rest for adequate recovery. [facility] Medical History History of cardiac murmur as a child Lumbar pain Physical exam Chronic GERD Umbilical hernia Overweight (BMI 25.0-29.9) Right knee pain Surgical History Medial meniscus tear Family History Mother Breast cancer Father Essential (primary) hypertension Diabetes mellitus Social History Housing: Apartment Alcohol intake: current Alcohol intake frequency: holidays/special occasions only Alcohol type: beer and wine Patient Tobacco Use Status: Former Tobacco user Tobacco use type: Cigarette e-Cigarette/Vaping Use: Never Used Second Hand Smoke Exposure: No service: No Current occupational status: employed 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 Current occupational exposures/hazards: No Cognitive needs: No Hearing needs: No Vision needs: No Physical Exam Vital Signs: Last Vital Signs Temp 98.1 F 07/29/24 13:08 Pulse 83 07/29/24 13:08 BP 130/80 07/29/24 13:08 Pulse Ox 98 07/29/24 13:08 Const General: cooperative, healthy appearing, comfortable and no acute distress Orientation/consciousness: patient oriented x3 Limitations: no limitations HEENT Head: Yes normal to inspection Ears: hearing grossly normal bilaterally, external ears normal and TM's normal bilaterally (Erythema in the left ear but no signs of infection bilaterally) General nose exam: Normal external nose present, Normal nares present and No nasal discharge present Face and sinus: Yes normal facial exam and Yes sinus tenderness (Maxillary bilateral) Mouth: Normal oral and palatal mucosa present and moist mucous membranes Throat: Yes tonsils normal, Yes uvula midline and Yes posterior oropharynx abnormal (Erythema) Eyes General: appearance normal, both eyes and all related structures Neck Neck: Yes normal visual inspection Resp Effort & Inspection: normal respiratory effort, able to speak in complete sentences, Actively coughing, no respiratory distress, not tachypneic, no tripod positioning and no use of accessory muscles Auscultation: clear to auscultation bilaterally Cardio Rate: regular rate Rhythm: regular rhythm Heart sounds: normal S1 and S2 Skin General skin exam: no rashes or lesions noted Neuro General: patient oriented x3 Extrem General: Yes normal to inspection and Yes no clubbing, cyanosis or edema Assessment & Plan Assessment & Plan (1) Acute sinusitis: Code(s): J01.90 - Acute sinusitis, unspecified Qualifiers: Sinusitis location: maxillary Recurrence: non-recurrent Qualified Code(s): J01.00 - Acute maxillary sinusitis, unspecified Plan: Acute Viral Sinusitis: The patient exhibits signs consistent with a viral upper respiratory infection responsible for sinus congestion and associated symptoms. I discussed that antibiotics are not indicated due to the viral etiology. I recommended initiating Fluticasone, an bpfe-wlk-fzwkmiu steroid nasal spray, to alleviate nasal congestion. The patient was instructed on the use of a neti pot with distilled water to facilitate the clearance of the nasal cavity. To aid symptom resolution, I prescribed a five-day course of oral Prednisone at 40 mg daily to decrease inflammation and expedite recovery. The patient was advised on potential side effects such as increased appetite, mood changes, and restlessness. I recommended ensuring adequate hydration and rest. The patient was given the option of taking a night off from work to prioritize recovery. Follow-up on viral panel results, including Flu, COVID-19, and RSV tests, was advised to be communicated later in the day for further guidance, if warranted. Patient was informed and verbally consented to the use of an ambient scribe for clinic note documentation during this visit. Orders: Orders SARS-CoV2/FLU/RSV Today J06.9 - Acute upper respiratory infection, unspecified Medications: New prednisone 40 mg (2 x 20 mg) PO DAILY 10 tabs 0RF Coding Level of Care Code Est Pt Level 3 (54959) Diagnoses Acute non-recurrent maxillary sinusitis J01.00 Sinusitis location: maxillary Recurrence: non-recurrent
== END 2024-07-29 14:14 | disposition home or self-care (01) ==
PROVIDERS: PCP Internal Medicine; Visit Provider Physician Assistant
DX: J01.00 Acute maxillary sinusitis, unspecified (principal)

== ENCOUNTER 2025-02-07 14:07 | Outpatient (AMB) | payer OTHER, SELFPAY ==
--- NOTE | 2025-02-07 14:14 | MHC.OFFWIV ---
Intake Vital Signs 02/07/25 14:19 Weight 170 lb BP 120/90 H Blood Pressure Location Rt brachial Position Sitting Pulse 80 Pulse Source Pulse Oximeter Pulse Oximetry (%) 97 Oxygen Delivery Method Room Air Intake Visit Reasons: EP-darkness spot by the belly Intake Note: Patient here for spots on right stomach that have been present for about 4 days. Patient Tobacco Use Status: Former Tobacco user Allergies No Known Allergies [No Known Allergies*] Allergy (Verified 07/29/24 13:10) Do you need a note to return to daycare/school/sports/work: No HPI HPI Comments History of Present Illness Details History of Present Illness - The patient is a 34-year-old male presenting with a dark spot accompanied by redness on his right lower abdomen. - The condition has been noticed for the past three to four days. - Neosporin has been applied initially to the area but it is not helping. - It is itchy at times, though cold water has provided relief in instances of perceived itchiness. - There is no history of contact with potential allergens, such as poison poly. - The patient observes an increase in the size of the affected area progressively. - patient states that he has a lesion on his face that he seeing Dermatology for but he has not seen them yet. He is unsure when his appointment is. Physical Exam General: Cooperative, healthy appearing, comfortable, no acute distress and well developed Orientation: Patient oriented x3 Limitations: No limitations Head: Normal to inspection Ears: Hearing grossly normal bilaterally Nose: Normal External nose present Face and sinus: Normal facial exam Eyes: Appearance normal, both eyes and all related structures Neck: Normal visual inspection and Yes full ROM Respiratory: Normal respiratory effort and able to speak in complete sentences. Skin: 1.5 cm oblong area of macular erythema with dried edges Neuro: Patient oriented x3 Extremities: Normal to inspection [facility] Medical History History of cardiac murmur as a child Lumbar pain Physical exam Chronic GERD Umbilical hernia Overweight (BMI 25.0-29.9) Right knee pain Surgical History Medial meniscus tear Family History Mother Breast cancer Father Essential (primary) hypertension Diabetes mellitus Social History Housing: Apartment Alcohol intake: current Alcohol intake frequency: holidays/special occasions only Alcohol type: beer and wine Patient Tobacco Use Status: Former Tobacco user Tobacco use type: Cigarette e-Cigarette/Vaping Use: Never Used Second Hand Smoke Exposure: No service: No Current occupational status: employed 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 Current occupational exposures/hazards: No Cognitive needs: No Hearing needs: No Vision needs: No Review of Systems Const All systems reviewed & are unremarkable except as noted in HPI and below Physical Exam Vital Signs: Last Vital Signs Pulse 80 02/07/25 14:19 BP 120/90 H 02/07/25 14:19 Pulse Ox 97 02/07/25 14:19 Oxygen Delivery Method Room Air 02/07/25 14:19 Assessment & Plan Assessment & Plan (1) Eczema: Code(s): L30.9 - Dermatitis, unspecified Qualifiers: Eczema type: unspecified Qualified Code(s): L30.9 - Dermatitis, unspecified Plan: I have diagnosed the patient with eczema affecting the area of the dark spot and redness. A steroid cream has been prescribed for application twice daily, with expectations of reducing inflammation and promoting healing. The prescription has been sent to the patient's preferred pharmacy. The patient is due for a dermatological evaluation soon and should attend this for further assessment, especially if the condition persists. I gave him the name of the conference and event organiser as well as the phone number so he can call and check to see when his appointment time is that he does not miss it. Additionally, they are welcome to return to urgent care should there be significant delays in dermatology follow-up and the condition does not resolve. Proper follow-up is stressed to ensure continuity of care and management. Patient was informed and verbally consented to the use of an ambient scribe for clinic note documentation during this visit. Medications: New triamcinolone acetonide 0.1% 1 appl topical BID 30 grams 0RF Coding Level of Care Code Est Pt Level 3 (16731) Diagnoses Eczema, unspecified type L30.9 Eczema type: unspecified
[2025-02-07 14:19] VITALS: BP 120/90; PULSE 80; O2SAT 97
== END 2025-02-07 15:09 | disposition home or self-care (01) ==
PROVIDERS: PCP Internal Medicine; Visit Provider Physician Assistant
DX: L30.9 Dermatitis, unspecified (principal)

== ENCOUNTER → 2025-02-07 14:07 | Outpatient (BNVA) | payer OTHER, SELFPAY | PROVIDERS: PCP Internal Medicine; Visit Provider Physician Assistant | DX: L30.9 Dermatitis, unspecified (principal) | CPT/HCPCS: 99212 ==

== ENCOUNTER 2025-04-19 14:27 | Outpatient (AMB) | payer OTHER, SELFPAY ==
--- NOTE | 2025-04-19 15:13 | A.OFFPC_ITS ---
Vital Signs 04/19/25 15:15 04/19/25 15:38 Height 5 ft 7 in 5 ft 7 in Weight 171 lb 8 oz BMI 26.9 BP 142/90 H Blood Pressure Location Lt brachial Lt radial Position Sitting Sitting Pulse 88 Pulse Source Pulse Oximeter Pulse Oximetry (%) 98 Oxygen Delivery Method Room Air Intake Visit Reasons: Ear, Sinus [employer] Required: No Accompanied by: Self / Same As Patient Allergies No Known Allergies (No Known Allergies*) Allergy (Verified 04/19/25 16:33) Medication List - Last Reconciled 04/19/25 by Daphne Perdomo MD omeprazole 20 mg PO DAILY 90 days triamcinolone acetonide 0.1% 1 appl topical BID Tobacco use date assessed: 04/19/25 Dental Screening Dental Screen Date: 04/19/25 Did you have a dental visit in the last 12 months?: No Did you have a dental problem in the last 6 months where you did not have access to dental care?: No Was dental information given to patient?: No HPI HPI Comments History of Present Illness Details The patient is a 34-year-old male presenting with left elbow pain and headaches. The patient reports experiencing pain in the left elbow, which he suspects is related to his work activities that require climbing and using a bar. The pain persists throughout the day, suggesting a possible case of lateral epicondylitis. Additionally, the patient experiences headaches that occur sporadically, somet imes upon waking. He reports sensitivity to sound during these episodes, indicating phonophobia. The frequency of headaches varies, with some weeks being symptom-free. [facility] Medical History (Updated 04/19/25 @ 20:08 by Daphne Perdomo MD) History of cardiac murmur as a child Lumbar pain Physical exam Chronic GERD Umbilical hernia Overweight (BMI 25.0-29.9) Right knee pain Surgical History Medial meniscus tear Family History Mother Breast cancer Father Essential (primary) hypertension Diabetes mellitus Social History Housing: Apartment Alcohol intake: current Alcohol intake frequency: holidays/special occasions only Alcohol type: beer and wine Patient Tobacco Use Status: Former Tobacco user Tobacco use type: Cigarette e-Cigarette/Vaping Use: Never Used Second Hand Smoke Exposure: No service: No Current occupational status: employed 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 1. Little interest or pleasure in doing things: not at all 2. Feeling down, depressed, or hopeless: not at all 3. Trouble falling or staying asleep, or sleeping too much: not at all 4. Feeling tired or having little energy: not at all 5. Poor appetite or overeating: not at all 6. Feeling bad about yourself - or that you are a failure or have let yourself or your family down: not at all 7. Trouble concentrating on things, such as reading the newspaper or watching television: not at all 8. Moving or speaking so slowly that other people could have noticed. Or the opposite - being so fidgety or restless that you have been moving around a lot more than usual: not at all 9. Thoughts that you would be better off or of hurting yourself in some way: not at all Total score: 0 Depression Screening Interpretation: Negative Depression Screening Done: Yes 83941 - PHQ-9 Billing: Yes Source: Developed by Drs. Murphy Avelar, Jimena Humphries, Dre Altamirano and colleagues, with an educational kaylen from [employer]. Thrive Questionnaire Date Thrive assessed: 04/19/25 I am a: Patient What is your living situation today?: I have a steady place to live Within the past 12 months, did the food you bought not last and you didn't have the money to get more?: I choose not to answer this question Within the past 12 months, did you worry whether your food would run out before you got money to buy more?: Never true Do you have trouble paying for medicines?: No Do you have trouble getting transportation to medical appointments?: No Do you have trouble paying your heating and electricity bill?: No Do you have trouble taking care of your child, family member or friend?: No Do you have trouble with day-to-day activities such as bathing, preparing meals, shopping, managing finances, etc.?: No Are you currently unemployed and looking for a job?: No Are you interested in more education?: No Please select the resources that you would like help with: None Currently or been in a relationship where the following occur: No concerns reported THRIVE Score: 0 AUDIT C Alcohol Use Questionnaire (AUDIT-C) 1. How often do you have a drink containing alcohol?: Monthly or less 2. How many drinks containing alcohol do you have on a typical day when you are drinking?: 1 or 2 3. How often do you have six or more drinks on one occasion?: Never Total Score: 1 Score Reviewed/Action Taken: No KATE-7 AMB Questionnaire KATE-7 Date KATE - 7 assessed: 04/19/25 Feeling nervous, anxious, or on edge: 0 = Not at all Not being able to stop or control worryin = Not at all Worrying too much about different things: 0 = Not at all Trouble relaxin = Not at all Being so restless that it is hard to sit still: 3 = Nearly every day Becoming easily annoyed or irritable: 0 = Not at all Feeling afraid as if something awful might happen: 0 = Not at all Total KATE-7 score (0-4 normal; 5-9 mild; 10-14 moderate; 15-21 severe): 3 Source: Developed by Drs. Murphy Avelar, Jimena Humphries, Dre Altamirano and colleagues, with an educational kaylen from [employer]. KATE-7 Assessment Billing KATE-7 Assessment Tool: KATE-7 Assessment 29182 Review of Systems Const All systems reviewed & are unremarkable except as noted in HPI and below Card Denies chest pain at rest, Denies chest pain with activity, Denies edema, Denies irregular heart rhythm, Denies claudication, Denies dyspnea, Denies dyspnea on exertion, Denies orthopnea, Denies paroxysmal nocturnal dyspnea and Denies slow heart rate Resp Denies cough, Denies dyspnea and Denies dyspnea on exertion GI Denies abdominal pain, Denies change in bowel habits, Denies excessive flatus, Denies nausea and Denies vomiting Skin/Breast Denies bleeding lesions, Denies changing lesions and Denies rash Neuro Denies lack of coordination Physical exam (Primary Care) Vital Signs: Last Vital Signs Pulse 88 04/19/25 15:38 BP 142/90 H 04/19/25 15:38 Pulse Ox 98 04/19/25 15:38 Oxygen Delivery Method Room Air 04/19/25 15:15 BMI result Body Mass Index 26.9 Tobacco/Smoking Status: Tobacco use Status Tobacco use date assessed 04/19/25 04/19/25 15:15 Patient Tobacco Use Status Former Tobacco user 04/19/25 15:15 Tobacco use type Cigarette 04/19/25 15:15 e-Cigarette/Vaping Use Never Used 04/19/25 15:15 PHQ-9: PHQ-9 Score PHQ-9: Total score 0 04/19/25 16:35 Depression Screening Interpretation: Negative Thrive Assessment: Date of Thrive Assessment Date Thrive assessed 04/19/25 04/19/25 15:15 Currently or been in a relationship where the following occur: No concerns reported Resp Effort & Inspection: normal respiratory effort Auscultation: clear to auscultation bilaterally Cardio Jugular venous distension: no JVD Rate: regular rate Rhythm: regular rhythm Heart sounds: S1 normal heart sound present and S2 normal heart sound present Coding Level of Care Code Est Pt Level 4 (41509) Complex EM visit Add On G2211 Diagnoses Chronic GERD K21.9 Left elbow pain M25.522 Right elbow pain M25.521 Headache R51.9 Additional Codes KATE-7 Assessment Billing - KATE-7 Assessment Tool: KATE-7 Assessment 28069 ([id number]) PHQ-9 - 33164 - PHQ-9 Billing: Yes ([id number]) Time Spent (min) 20 Assessment & Plan Assessment & Plan (1) Chronic GERD: Code(s): K21.9 - Gastro-esophageal reflux disease without esophagitis Category: Medical (2) Left elbow pain: Code(s): M25.522 - Pain in left elbow Category: Medical (3) Right elbow pain: Code(s): M25.521 - Pain in right elbow Category: Medical (4) Headache: Code(s): R51.9 - Headache, unspecified Category: Medical Plan For the left elbow pain, suspected to be lateral epicondylitis, the patient will be referred to orthopedics for further evaluation and management. An imaging study Placa) will be conducted to assess the condition of the elbow. For the headaches, the patient will be prescribed medication to manage the symptoms. Patient was informed and verbally consented to the use of an ambient scribe for clinic note documentation during this visit. Orders: Orders XR elbow LT 2V Today M25.522 - Pain in left elbow XR elbow RT 2V Today M25.521 - Pain in right elbow Medications: New sumatriptan succinate 25 mg PO ONCE PRN 9 tabs 1RF migraine headache 30 days
[2025-04-19 15:38] VITALS: BP 142/90; PULSE 88; O2SAT 98; BMI 26.9
== END 2025-04-19 16:41 | disposition home or self-care (01) ==
LOC: HO.HMCH 14:28
PROVIDERS: PCP Internal Medicine; Visit Provider Internal Medicine
DX: K21.9 Gastro-esophageal reflux disease without esophagitis (principal); M25.522 Pain in left elbow; M25.521 Pain in right elbow; R51.9 Headache, unspecified

== ENCOUNTER → 2025-04-19 14:27 | Outpatient (BNVA) | payer OTHER, SELFPAY | PROVIDERS: PCP Internal Medicine; Visit Provider Internal Medicine | DX: M25.522 Pain in left elbow (principal); R51.9 Headache, unspecified; K21.9 Gastro-esophageal reflux disease without esophagitis; M25.511 Pain in right shoulder | CPT/HCPCS: 96127; 99212 ==

== ENCOUNTER 2025-04-25 14:09 | Outpatient (REF) | payer OTHER, SELFPAY ==
--- NOTE | ~2025-04-25 | XR_ITS ---
EXAMINATION: XR ELBOW, YARON min 3V CLINICAL INFORMATION: M25.522 - Pain in left elbow COMPARISON: None available. TECHNIQUE: AP, lateral, and oblique views of each elbow. FINDINGS: RIGHT ELBOW: No fracture, dislocation, or suspicious bone lesion. Normal alignment. Joint spaces are preserved. The epicondyles appear normal. No evidence of joint effusion. Normal soft tissues. LEFT ELBOW: No fracture, dislocation, or suspicious bone lesion. Normal alignment. Joint spaces are preserved. The epicondyles appear normal. No evidence of joint effusion. Normal soft tissues. XR/XR Elbow Yaron min 3V IMPRESSION: Normal bilateral elbows. Electronically signed by: Troy Cedillo MD 04/25/2025 02:32 PM EDT
== END 2025-04-25 14:10 | disposition home or self-care (01) ==
LOC: HO.XRAY 14:09
PROVIDERS: PCP Internal Medicine; Visit Provider Internal Medicine
DX: M25.522 Pain in left elbow (principal)
CPT/HCPCS: 73080

== ENCOUNTER → 2025-04-25 14:13 | Outpatient (BNV) | payer OTHER, SELFPAY | PROVIDERS: PCP Internal Medicine; Visit Provider Radiology Diagnostic Radiology | DX: M25.522 Pain in left elbow (principal) | CPT/HCPCS: 73080 ==

== ENCOUNTER 2025-05-06 00:12 | Emergency (ER) | payer OTHER, SELFPAY ==
[2025-05-06 00:15] VITALS: BP 153/87; PULSE 73; RESP 20; TEMP 36.6; O2SAT 98; BMI 26.6
[2025-05-06 00:30] LABS: Hematocrit 40.1 % (42.0-52.0); Hemoglobin 14.2 g/dl (14.0-18.0); Imm Gran Abs Auto 0.02 X10*3/uL (0.00-0.03); Imm Gran Pct Auto 0.3 % (0.0-0.4); Lymphocytes Absolute Auto 1.5 X10*3/uL (1.2-4.9); MANUAL DIFF FLAG NO; Mean Corpuscular HGB Conc 35.4 g/dl (31.0-36.0); Mean Corpuscular Hemoglobin 29.5 pg (27.0-33.0); Mean Corpuscular Volume 83.2 fL (80.0-98.0); NRBC Abs Auto 0.000 X10*3/uL (0.0-0.012); NRBC Pct Auto 0.0 /100WBC (0.0-0.2); Platelet Count 168 X10*3/uL (160-400); Red Blood Count 4.82 X10*6/uL (4.60-5.80); White Blood Count 7.8 X10*3/uL (4.8-10.8)
--- NOTE | 2025-05-06 00:43 | ED_ITS ---
HPI - Headache General Chief Complaint: Headache Stated Complaint: Head Pressure Time Seen by Provider: 05/06/25 00:43 History of Present Illness ED Provider: Selina THAKKAR Narrative: The patient says that he went to work today. 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 While at work he developed a frontal headache that was associated with some pressure in his eyes and photophobia. He felt uncomfortable and left work to come to the hospital for evaluation of this headache. He says he does not have a history of migraine headaches. He has had no nausea or vomiting. No fever, sweats, chills. No sore throat. No neck stiffness. The headache was gradual in onset. Related Data Previous Rx's ?Medication ?Instructions ?Recorded omeprazole 20 mg capsule,delayed 20 mg PO DAILY 90 day s #90 caps 02/01/25 release triamcinolone acetonide 0.1 % 1 appl topical BID #30 g dima 02/07/25 topical cream sumatriptan succinate 25 mg tablet 25 mg PO ONCE PRN m igraine 04/19/25 headache 30 days #9 tabs ibuprofen 600 mg tablet 600 mg PO Q6H PRN pain #14 t abs 05/06/25 Allergies Allergy/AdvReac Type Severity Reaction Status Date / Time No Known Allergies (No Known Allergy Verified 05/06/25 00:17 Allergies*) Review of Systems 2 Review of Systems: Yes all other systems are reviewed and are negative PMFSH Past Medical History Medical History History of cardiac murmur as a child Lumbar pain Physical exam Chronic GERD Umbilical hernia Overweight (BMI 25.0-29.9) Right knee pain Surgical History Medial meniscus tear Family History Family History Mother Breast cancer Father Essential (primary) hypertension Diabetes mellitus Social History Social History Housing: Apartment Alcohol intake: current Alcohol intake frequency: holidays/special occasions only Alcohol type: beer and wine Patient Tobacco Use Status: Former Tobacco user Tobacco use type: Cigarette Smoked in Last 30 Days: No e-Cigarette/Vaping Use: Never Used Second Hand Smoke Exposure: No Use of substances other than those prescribed or required for medical reasons: No Advance Directives: No Advance Directives Information Provided: Yes Do you have a plan to hurt others: No Plan service: No Current occupational status: employed 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 He does not appear in obvious distress. He is pleasant and cooperative. Orientation/consciousness: patient oriented x3 HEENT: Other: The face is symmetrical. ?Mucous membranes moist. Eyes: Other: Pupils are round equal, conjunctivae are clear, extraocular movements intact Neck: Neck: Yes normal visual inspection, Yes full ROM, Yes no lymphadenopathy and Yes no meningeal signs Resp: Effort & Inspection: normal respiratory effort Auscultation: clear to auscultation bilaterally Cardio: Rate: regular rate Rhythm: regular rhythm Heart sounds: S1 normal heart sound present and S2 normal heart sound present GI: Other: Abdomen is soft and nontender Skin: Other: The skin is dry and unremarkable Neuro: General: patient oriented x3, tone normal, moves all extremities, no meningeal signs, no focal motor deficits and CN's II-XI intact bilaterally Extrem: Other: There is no calf swelling or tenderness. No asymmetry. No peripheral edema. Medications Administered Discontinued Medications Generic Name Dose Route Start Last Admin Trade Name Freq PRN Reason Stop Dose Admin Acetaminophen 975 mg 05/06/25 01:55 05/06/25 02:01 Acetaminophen 325 Mg Tablet PO 05/06/25 01:56 975 mg ONCE ONE Administration Sodium Chloride 1,000 mls @ 999 mls/hr 05/06/25 01:00 05/06/25 01:36 Ns IV 05/06/25 02:00 Infused .Q1H1M NIECY Infusion Ketorolac Tromethamine 15 mg 05/06/25 00:57 05/06/25 01:02 Ketorolac Tromethamine 15 Mg/Ml Vial IVPUSH 05/06/25 00:58 15 mg ONCE ONE Administration Medical Decision Making Medical Decision Making [facility] Narrative: The patient is a very pleasant 34-year-old who presents with a headache that began while he was at work today. 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 He describes a headache associated with some pressure behind his eyes and photophobia. He has a supple neck and a benign clinical exam. This was not a thunderclap headache. The patient was treated with IV ketorolac with significant improvement in his pain. The patient says that he has not had similar headaches in the past and he also says that he has not had migraines in the past. He has had previous ER visits for headaches and he has been prescribed sumatriptan in the past. I suspect the patient has migraine headaches. I do not think this is a case of a subarachnoid hemorrhage or meningitis. The patient will be discharged with a prescription for ibuprofen and should follow up with his PCP. He should return if worse. He was given a work note. Lab Data 05/06/25 00:26 05/06/25 00:26 Labs: Lab Results 05/06/25 Range/Units 00:26 WBC 7.8 (4.8-10.8) X10*3/uL RBC 4.82 (4.60-5.80) X10*6/uL Hgb 14.2 (14.0-18.0) g/dl Hct 40.1 L (42.0-52.0) % MCV 83.2 (80.0-98.0) fL MCH 29.5 (27.0-33.0) pg MCHC 35.4 (31.0-36.0) g/dl RDW 12.8 (11.0-16.0) % Plt Count 168 (160-400) X10*3/uL MPV 11.6 (9.4-12.4) fL Immature Gran % (Auto) 0.3 (0.0-0.4) % Neut % (Auto) 72.1 (45-73) % Lymph % (Auto) 18.5 L (20-40) % [place] % (Auto) 6.5 (2-11) % Eos % (Auto) 2.3 (0-4) % Baso % (Auto) 0.3 (0-2) % Lymph # (Auto) 1.5 (1.2-4.9) X10*3/uL [place] # (Auto) 0.5 (0.1-1.2) X10*3/uL Eos # (Auto) 0.2 (0.0-0.4) X10*3/uL Baso # (Auto) 0.0 (0.0-0.2) X10*3/uL Abs Immat Gran (auto) 0.02 (0.00-0.03) X10*3/uL Absolute Neuts (auto) 5.7 (2.0-8.3) x10*3/uL Absolute Nucleated RBC 0.000 (0.0-0.012) X10*3/uL Nucleated RBC % (auto) 0.0 (0.0-0.2) /100WBC Sodium 141 (135-145) mmol/L Potassium 3.6 (3.3-5.1) mmol/L Chloride 108 (96-108) mmol/L Carbon Dioxide 24 (22-29) mmol/L Anion Gap 13 (12-20) BUN 19 H (9-16) mg/dL Creatinine 0.73 (0.5-1.4) mg/dL Estim Creat Clear Calc 133.3 Estimated GFR > 60 Random Glucose 98 (60-115) mg/dL Calcium 9.3 (8.4-10.2) mg/dL Total Bilirubin 0.3 (0.0-1.0) mg/dL AST 26 (5-37) U/L ALT 32 (0-40) U/L Alkaline Phosphatase 68 (39-117) U/L Total Protein 7.5 (6.5-8.0) g/dL Albumin 4.5 (3.5-5.0) g/dL Discharge Plan Discharge Clinical Impression: Headache Patient Disposition: Home, Self-Care Additional Instructions: I suspect that your headache was probably a migraine headache. Please rest and try to get some sleep tonight. My hope is that if you get a good night sleep you will wake up feeling significantly better. I have sent a prescription for ibuprofen to your pharmacy. You may use the ibuprofen for future headaches as needed. Please contact your regular doctor's office on Thursday to make a follow up appointment to discuss this headache further. Return to the emergency room if significantly worse. Prescriptions: New ibuprofen 600 mg tablet 600 mg PO Q6H PRN (Reason: pain) Qty: 14 0RF No Action omeprazole 20 mg capsule,delayed release(DR/EC) 20 mg PO DAILY 90 Days Qty: 90 1RF sumatriptan succinate 25 mg tablet 25 mg PO ONCE PRN (Reason: migraine headache) 30 Days Qty: 9 1RF triamcinolone acetonide 0.1 % cream 1 appl topical BID Qty: 30 0RF Referrals: Daphne Lopez MD [Primary Care Provider, Internal Medicine] Stand Alone Forms: Work/School Release Interventions: ED Discharge Assessment Last Done: 05/06/25 02:10 Discharge Date/Time: 05/06/25 02:11 Print Language: Other
[2025-05-06 00:47] LABS: Alanine Aminotransferase 32 U/L (0-40); Albumin Level 4.5 g/dL (3.5-5.0); Anion Gap 13 (12-20); Aspartate Amino Transferase 26 U/L (5-37); Blood Urea Nitrogen 19 mg/dL (9-16); Calcium 9.3 mg/dL (8.4-10.2); Carbon Dioxide 24 mmol/L (22-29); Chloride 108 mmol/L (96-108); Creatinine Clr Calc Pharmacy 133.3; Estimated Glomerular Filt Rate > 60; Potassium 3.6 mmol/L (3.3-5.1); Sodium 141 mmol/L (135-145); Total Protein 7.5 g/dL (6.5-8.0)
[2025-05-06 00:58] LABS: Alkaline Phosphatase 68 U/L (39-117)
[2025-05-06 02:00] VITALS: BP 132/88; PULSE 69; RESP 18; TEMP 36.1; O2SAT 98
[2025-05-06 02:10] VITALS: BP 132/88; PULSE 69; RESP 18; TEMP 36.1; O2SAT 98
== END 2025-05-06 02:11 | disposition home or self-care (01) ==
PROVIDERS: Emergency Provider Emergency Medicine; PCP Internal Medicine
DX: R51.9 Headache, unspecified (principal); H53.143 Visual discomfort, bilateral; R11.0 Nausea; Z87.891 Personal history of nicotine dependence
CPT/HCPCS: 36415; 80053; 85025; 96361; 96374; 99284; 99285; J1885

== ENCOUNTER 2025-06-06 12:51 | Outpatient (REF) | payer OTHER, SELFPAY ==
[2025-06-06 13:04] LABS: MANUAL DIFF FLAG NO
[2025-06-06 13:08] LABS: Hematocrit 42.4 % (42.0-52.0); Hemoglobin 14.6 g/dl (14.0-18.0); Imm Gran Abs Auto 0.01 X10*3/uL (0.00-0.03); Imm Gran Pct Auto 0.2 % (0.0-0.4); Lymphocytes Absolute Auto 1.1 X10*3/uL (1.2-4.9); Mean Corpuscular HGB Conc 34.4 g/dl (31.0-36.0); Mean Corpuscular Hemoglobin 28.9 pg (27.0-33.0); Mean Corpuscular Volume 84.0 fL (80.0-98.0); NRBC Abs Auto 0.000 X10*3/uL (0.0-0.012); NRBC Pct Auto 0.0 /100WBC (0.0-0.2); Platelet Count 168 X10*3/uL (160-400); Red Blood Count 5.05 X10*6/uL (4.60-5.80); White Blood Count 6.2 X10*3/uL (4.8-10.8)
[2025-06-06 13:52] LABS: Alanine Aminotransferase 29 U/L (0-40); Albumin Level 4.5 g/dL (3.5-5.0); Alkaline Phosphatase 60 U/L (39-117); Anion Gap 9 (12-20); Aspartate Amino Transferase 20 U/L (5-37); Blood Urea Nitrogen 15 mg/dL (9-16); Calcium 9.1 mg/dL (8.4-10.2); Carbon Dioxide 31 mmol/L (22-29); Chloride 106 mmol/L (96-108); Estimated Glomerular Filt Rate > 60; Potassium 3.5 mmol/L (3.3-5.1); Sodium 142 mmol/L (135-145); Total Protein 7.5 g/dL (6.5-8.0)
[2025-06-06 14:06] LABS: Thyroid Stimulating Hormone 1.17 uIU/mL (0.32-4.0)
[2025-06-06 14:16] LABS: Folate 11.8 ng/mL (> or = 4.0); Vitamin B12 285 pg/mL (200-900)
[2025-06-14 22:58] LABS: Testosterone, Free 63.9 pg/mL (35.0-155.0)
== END 2025-06-06 12:52 | disposition home or self-care (01) ==
LOC: HO.LAB 12:51
PROVIDERS: PCP Internal Medicine; Visit Provider Internal Medicine
DX: R53.83 Other fatigue (principal); D64.9 Anemia, unspecified; E53.8 Deficiency of other specified B group vitamins; E55.9 Vitamin D deficiency, unspecified; E66.3 Overweight
CPT/HCPCS: 36415; 80053; 82306; 82607; 82746; 84402; 84403; 84443; 85025

== ENCOUNTER 2025-07-10 15:33 | Outpatient (AMB) | payer OTHER, SELFPAY ==
[2025-07-10 15:46] VITALS: BP 132/84; PULSE 79; TEMP 36.4; O2SAT 97; BMI 27.3
--- NOTE | 2025-07-10 15:46 | MHC.PC.OV ---
Vital Signs 07/10/25 15:46 Height 5 ft 7 in Weight 174 lb 4 oz BMI 27.3 BP 132/84 Blood Pressure Location Lt brachial Position Sitting Pulse 79 Pulse Source Pulse Oximeter Temp 97.5 F Temp Source Temporal Artery Scan Pulse Oximetry (%) 97 Oxygen Delivery Method Room Air Intake Visit Reasons: pe Intake Note: Patient is here today for a physical. Epic Specialist Required: No Advertising Intern: Not Required per policy Accompanied by: Self / Same As Patient Allergies No Known Allergies (No Known Allergies*) Allergy (Verified 07/10/25 16:21) Medication List - Last Reconciled 07/10/25 by Daphne Perdomo MD ibuprofen 600 mg PO Q6H PRN omeprazole 20 mg PO DAILY 90 days sumatriptan succinate 25 mg PO ONCE PRN 30 days triamcinolone acetonide 0.1% 1 appl topical BID Tobacco use date assessed: 07/10/25 Dental Screening Dental Screen Date: 04/19/25 HPI HPI Comments History of Present Illness Details The patient is a 34-year-old male presenting for his physical exam. Medications include ibuprofen and omeprazole for acidity as needed. He has a prescription for sumatriptan for migraines but reports not taking it. He reports no known drug allergies. He also takes omega-3 supplements. The patient denies any history of knee surgery. Declines flu vaccine. Recent lab work from May showed normal white blood cells, hemoglobin, and platelets. Renal function, liver function, vitamin B12, and thyroid studies were also normal. Glucose was 100 mg/dL and testosterone level was normal. However, his vitamin D level was low. Elbow x-rays were also normal. Still complains of bilateral arm pain and would be referred for occupational therapy. [facility] Medical History History of cardiac murmur as a child Lumbar pain Physical exam Chronic GERD Umbilical hernia Overweight (BMI 25.0-29.9) Right knee pain Surgical History Medial meniscus tear Family History Mother Breast cancer Father Essential (primary) hypertension Diabetes mellitus Social History Housing: Apartment Alcohol intake: current Alcohol intake frequency: holidays/special occasions only Alcohol type: beer and wine Patient Tobacco Use Status: Former Tobacco user Tobacco use type: Cigarette e-Cigarette/Vaping Use: Never Used Second Hand Smoke Exposure: Yes service: No Current occupational status: employed 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 Current occupational exposures/hazards: No Cognitive needs: No Hearing needs: No Vision needs: No Questionnaire Thrive Questionnaire Date Thrive assessed: 04/19/25 I am a: Patient What is your living situation today?: I have a steady place to live Within the past 12 months, did the food you bought not last and you didn't have the money to get more?: I choose not to answer this question Within the past 12 months, did you worry whether your food would run out before you got money to buy more?: Never true Do you have trouble paying for medicines?: No Do you have trouble getting transportation to medical appointments?: No Do you have trouble paying your heating and electricity bill?: No Do you have trouble taking care of your child, family member or friend?: No Do you have trouble with day-to-day activities such as bathing, preparing meals, shopping, managing finances, etc.?: No Are you currently unemployed and looking for a job?: No Are you interested in more education?: No Please select the resources that you would like help with: None Currently or been in a relationship where the following occur: No concerns reported THRIVE Score: 0 KATE-7 AMB Questionnaire KATE-7 Date KATE - 7 assessed: 04/19/25 Source: Developed by Drs. Murphy Avelar, Jimena Humphries, Dre Altamirano and colleagues, with an educational kaylen from [employer]. Review of Systems Const All systems reviewed & are unremarkable except as noted in HPI and below Card Denies chest pain at rest, Denies chest pain with activity, Denies edema, Denies irregular heart rhythm, Denies claudication, Denies dyspnea, Denies dyspnea on exertion, Denies orthopnea, Denies paroxysmal nocturnal dyspnea and Denies slow heart rate Resp Denies cough, Denies dyspnea and Denies dyspnea on exertion GI Denies abdominal pain, Denies change in bowel habits, Denies excessive flatus, Denies nausea and Denies vomiting Neuro Denies lack of coordination Physical exam (Primary Care) Vital Signs: Last Vital Signs Temp 97.5 F 07/10/25 15:46 Pulse 79 07/10/25 15:46 BP 132/84 07/10/25 15:46 Pulse Ox 97 07/10/25 15:46 Oxygen Delivery Method Room Air 07/10/25 15:46 BMI result Body Mass Index 27.3 Tobacco/Smoking Status: Tobacco use Status Tobacco use date assessed 07/10/25 07/10/25 15:50 Patient Tobacco Use Status Former Tobacco user 07/10/25 15:50 Tobacco use type Cigarette 07/10/25 15:50 e-Cigarette/Vaping Use Never Used 07/10/25 15:50 Thrive Assessment: Date of Thrive Assessment Date Thrive assessed 04/19/25 07/10/25 15:50 Currently or been in a relationship where the following occur: No concerns reported HENMT Head: Yes normal to inspection, Yes normocephalic and Yes atraumatic Ears: external ears normal Eyes General: appearance normal, both eyes and all related structures Eyelids: Yes eyelids normal Conjunctivae: conjunctivae normal Neck Neck: Yes normal visual inspection and Yes supple Resp Effort & Inspection: normal respiratory effort Auscultation: clear to auscultation bilaterally Cardio Jugular venous distension: no JVD Rate: regular rate Rhythm: regular rhythm Heart sounds: S1 normal heart sound present and S2 normal heart sound present GI Inspection: Yes normal to inspection Palpation (GI): Soft to palpation and nontender Auscultation: normal bowel sounds Skin General skin exam: no rashes or lesions noted Neuro General: no focal motor deficits Extrem General: Yes full ROM Psych Appearance: grossly normal Coding Level of Care Code Est Pt Level 3 (74130) Est Pt Prev Care 18-39y(99287) Diagnoses Physical exam Z00.00 Bilateral arm pain M79.601; M79.602 Time Spent (min) 33 Assessment & Plan Assessment & Plan (1) Physical exam: Code(s): Z00.00 - Encounter for general adult medical examination without abnormal findings Category: Medical (2) Bilateral arm pain: Code(s): M79.601 - Pain in right arm; M79.602 - Pain in left arm Category: Medical Plan Plan 1. Encounter for general adult medical examination without abnormal findings Z00.00 Repeat in a year. 2. Vitamin D deficiency, unspecified E55.9 The patient's lab results from May revealed a low vitamin D level. A prescription for vitamin D supplementation will be sent. 3. Complex regional pain syndrome i of upper limb, bilateral G90.513 Though the patient's elbow x-rays were normal, a referral to physical therapy will be placed. Orders: Orders OT Evaluation and Treatment Today M79.601 - Pain in right arm, M79.602 - Pain in left arm Medications: New cholecalciferol (vitamin D3) 25 mcg PO DAILY 90 caps 1RF 90 days
--- OUTSIDE RECORDS SUMMARY | 2025-07-10 16:43 | XMS_ITS ---
Author Name [facility] Organization Unknown History of Medication Use Medication Directions Dispensed Refills Start Date End Date Stat us Flonase Allergy Relief 06/09/2025 active cetirizine 06/09/2025 active cephalexin 02/26/2025 active omeprazole 12/05/2024 active Encounters Encounter Type Encounter Reason Primary Diagnosis Location Date Ambulatory TBE Acute upper resp iratory infection, unspecified [facility] 06/09/2025 Care Team Organization Name Specialty Phone Email Start Date End [facility] te [facility] 06/10/2025 [facility]2025
== END 2025-07-10 16:32 | disposition home or self-care (01) ==
LOC: HO.HMCH 15:34
PROVIDERS: PCP Internal Medicine; Visit Provider Internal Medicine
DX: Z00.00 Encounter for general adult medical examination without abnormal findings (principal); M79.601 Pain in right arm; M79.602 Pain in left arm

== ENCOUNTER → 2025-07-10 15:33 | Outpatient (BNVA) | payer OTHER, SELFPAY | PROVIDERS: PCP Internal Medicine; Visit Provider Internal Medicine | DX: Z00.00 Encounter for general adult medical examination without abnormal findings (principal); M79.601 Pain in right arm; M79.602 Pain in left arm; E55.9 Vitamin D deficiency, unspecified; G90.513 Complex regional pain syndrome I of upper limb, bilateral | CPT/HCPCS: 99212; 99395 ==

== ENCOUNTER 2025-08-25 20:10 | Emergency (ER) | payer OTHER, SELFPAY ==
[2025-08-25 20:31] VITALS: BP 145/90; PULSE 97; RESP 18; TEMP 36.7; O2SAT 95; BMI 26.6
[2025-08-25 21:54] LABS: Resp Syncy Virus RNA Qual PCR NEGATIVE (Negative); SARS COV2 PCR INHOUSE POSITIVE (Negative)
--- NOTE | 2025-08-25 22:38 | ED_ITS ---
HPI - General Adult General Chief complaint: General Medical Stated complaint: fever/body aches Time Seen by Provider: 08/25/25 22:31 Source: patient Mode of arrival: ambulatory Limitations: no limitations History of Present Illness ED Provider: Dr. Susan Koenig HPI narrative: Patient comes to the emergency room complaining of body aches, subjective fever, joint pain that started yesterday. Patient took Tylenol a proximally 13 hours ago. Patient denies chest pain or shortness of breath. Denies runny nose cough. Related Data Previous Rx's ?Medication ?Instructions ?Recorded omeprazole 20 mg capsule,delayed 20 mg PO DAILY 90 day s #90 caps 02/01/25 release triamcinolone acetonide 0.1 % 1 appl topical BID #30 g dima 02/07/25 topical cream sumatriptan succinate 25 mg tablet 25 mg PO ONCE PRN m igraine 04/19/25 headache 30 days #9 tabs ibuprofen 600 mg tablet 600 mg PO Q6H PRN pain #14 t abs 05/06/25 cholecalciferol (vitamin D3) 25 25 mcg PO DAILY 90 day s #90 caps 07/10/25 mcg (1,000 unit) capsule Allergies Allergy/AdvReac Type Severity Reaction Status Date / Time No Known Allergies (No Known Allergy Verified 08/25/25 20:33 Allergies*) Review of Systems Review of Systems: Constitutional : No Weight loss, complaining of subjective fever No Chills, No Night Sweats, complaining of fatigue, general malaise and myalgias ENT/Mouth : No Hearing loss, No Ear Pain, No Nasal Congestion, No Sinus Pain, No Hoarseness, No sore throat, No Rhinorrhea, No Swallowing Difficulty Eyes: No Eye Pain, No Swelling, No Redness, No Foreign Body, No Discharge, No Vision Changes Cardiovascular : No Chest Pain, No SOB, No Dyspnea on Exertion, No Orthopnea, No Edema, No Palpitations Respiratory : No Cough, No Sputum, No Wheezing, No Smoke Exposure, No Dyspnea Gastrointestinal : No Nausea, No Vomiting, No Diarrhea, No Constipation, No abdominal Pain, No Hematochezia, No Melena Genitourinary : no irregular bleeding, No Dysuria, No Urinary Frequency, No Hematuria, No Urinary Incontinence, No Urgency, No Flank Pain, No Urinary Flow Changes, No Hesitancy Musculoskeletal : Complaining of diffuse joint pain and myalgias, No Joint Swelling Skin : No Skin Lesions, No rash Neuro : No Weakness, No Numbness, No Paresthesias, No Loss of Consciousness, No Dizziness, No Headache Psych : No Anxiety/Panic, No Depression, No SI/HI/AH/VH, No Social Issues, Heme/Lymph: No Bruising, No Bleeding,No Lymphadenopathy Endocrine : No Polyuria, No Polydipsia, No Temperature Intolerance [facility] Past Medical History Medical History History of cardiac murmur as a child Lumbar pain Physical exam Chronic GERD Umbilical hernia Overweight (BMI 25.0-29.9) Right knee pain Surgical History Medial meniscus tear Family History Family History Mother Breast cancer Father Essential (primary) hypertension Diabetes mellitus Social History Social History Housing: Apartment Alcohol intake: current Alcohol intake frequency: holidays/special occasions only Alcohol type: beer and wine Patient Tobacco Use Status: Former Tobacco user Tobacco use type: Cigarette e-Cigarette/Vaping Use: Never Used Second Hand Smoke Exposure: Yes Advance Directives: No Advance Directives Information Provided: No Do you have a plan to hurt others: No Plan service: No Current occupational status: employed 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 Oriented X3. No acute distress. Well-appearing Eyes: Pupils equal, round and reactive to light. ENT: Pharynx normal. Neck: Normal inspection. Neck supple. No lymph nodes noted. No crepitus CVS: Normal heart rate and rhythm. Pulses normal. Normal S1 and S2 Respiratory: No respiratory distress. Breath sounds normal. No Wheezing. No rales Abdomen: Soft and nontender. No rigidity. No distention. Skin: Skin warm and dry. Normal skin color. Normal skin turgor. Extremities: No lower extremity edema. No Lacerations. No Rash Neuro: Oriented X 3. No motor deficit. No sensory deficit. Moving all extremities. No slurred speech. CN 2 through 12 grossly intact Psych: calm, cooperative, normal affect Vital Signs: Vital Signs - 24 hr 08/25/25 20:31 Temperature 98.1 F Pulse Rate 97 Respiratory Rate 18 Blood Pressure 145/90 H Pulse Oximetry 95 Oxygen Delivery Method Room Air BMI result Body Mass Index 26.6 Medical Decision Making Medical Decision Making [facility] Narrative: Patient tested positive for COVID Patient is well-appearing Vitals are stable, oxygen saturation 95% on room air, no respiratory complaints, no shortness of breath. I discussed with the patient's that medication for COVID is more likely to cause side effects rather than any symptomatic relief. Patient wants to be treated only symptomatically with Tylenol and Motrin. Lab Data [facility] Lab Attestation statement: I reviewed the patient's lab results. Labs: Lab Results 08/25/25 Range/Units 21:08 Influenza Type A (PCR) NEGATIVE (Negative) Influenza Type B (PCR) NEGATIVE (Negative) RSV RNA Qual (PCR) NEGATIVE (Negative) SARS-CoV-2 RNA (RT-PCR) POSITIVE A (Negative) Discharge Plan Discharge Clinical Impression: COVID Patient Disposition: Home, Self-Care Instructions: COVID-19 (Coronavirus Disease 2019) (ED) Additional Instructions: Please follow-up with your primary care physician tomorrow. If you have any worsening or new symptoms, please return to the emergency room or call 911 Prescriptions: No Action omeprazole 20 mg capsule,delayed release(DR/EC) 20 mg PO DAILY 90 Days Qty: 90 1RF ibuprofen 600 mg tablet 600 mg PO Q6H PRN (Reason: pain) Qty: 14 0RF sumatriptan succinate 25 mg tablet 25 mg PO ONCE PRN (Reason: migraine headache) 30 Days Qty: 9 1RF triamcinolone acetonide 0.1 % cream 1 appl topical BID Qty: 30 0RF cholecalciferol (vitamin D3) 25 mcg (1,000 unit) capsule 25 mcg PO DAILY 90 Days Qty: 90 1RF Stand Alone Forms: Work/School Release Print Language: Estonian
[2025-08-25 22:49] VITALS: BP 129/89; PULSE 96; RESP 16; TEMP 37.3; O2SAT 96
[2025-08-25 22:53] VITALS: BP 129/89; PULSE 96; RESP 16; TEMP 37.3; O2SAT 96
== END 2025-08-25 22:53 | disposition home or self-care (01) ==
PROVIDERS: Emergency Provider Emergency Medicine; PCP Internal Medicine
DX: U07.1 COVID-19 (principal)
CPT/HCPCS: 87637; 99283